=== PATIENT | male | born 1945 | race Caucasian/White ===

== ENCOUNTER 2017-01-12 23:13 | Emergency (ER) | payer MEDICARE, BC ==
[2017-01-13] MEDS ORDERED: Sodium Chloride 0.9% 1,000 ML IV SCH (01:30)
--- NOTE | 2017-01-13 01:34 | EDM.PDOC ---
[id number]: CAN'T BREATHE Time Seen by Provider: 01/12/17 23:30 Source: Reports: Patient, Family History Limitations: Reports: No limitations - History of Present Illness INITIAL COMMENTS - FREE TEXT/NARRATIVE: Pt became very shakey and he was quite sob tonight. He had no chest pain. After arrival here he felt better. He states his urine possibly did look infected earlier in the week. Timing/Duration: Reports: Hour(s):, Getting worse Location, General: Reports: chest Associated Symptoms: Reports: shortness of breath - Related Data Allergies/ADRs: Allergies Allergy/AdvReac Type Severity Reaction Status Date / Time No Known Allergies Allergy Verified 01/12/17 23:51 Home Meds: Home Meds Gabapentin [Neurontin] 600 mg PO BID 05/28/14 [History] Multivitamin with Minerals [Multiple Vitamin] 1 tab PO DAILY 05/28/14 [History] Cholecalciferol (Vitamin D3) [Vitamin D3] 2,000 unit PO BID 07/27/14 [History] Insulin Lispro [Humalog] 12 units SUBCUT TIDMEALS 12/07/15 [History] Omeprazole 20 mg PO DAILY 12/07/15 [History] Sennosides/Docusate Sodium [Senna-S] 17.2 mg PO BID PRN 12/07/15 [History] traZODone 50 mg PO BEDTIME 12/07/15 [History] Aspirin [Ecotrin] 81 mg PO DAILY 08/29/16 [History] Carvedilol [Coreg] 25 mg PO BID 08/29/16 [History] Collagenase [Santyl Oint] 1 applic TP DAILY 08/29/16 [History] Cyclobenzaprine [Flexeril] 5 mg PO TID PRN 08/29/16 [History] Melatonin [Melatin] 3 mg PO BEDTIME PRN 08/29/16 [History] atorvaSTATin [Lipitor] 10 mg PO BEDTIME 08/29/16 [History] Metoprolol Tartrate [Lopressor] 100 mg PO BID 09/17/16 [History] Albuterol [IJD: Albuterol] 2.5 mg NEB Q4H PRN #0 nebule 09/19/16 [Rx] Albuterol/Ipratropium [DuoNeb 3.0-0.5 MG/3 ML] 3 ml NEB QIDRT neb 09/19/16 [Rx] Insulin Glarg,Human.Rec.Analog [Lantus Solostar] 15 units SQ BID 09/24/16 [ History] Doxazosin Mesylate [Cardura] 2 mg PO BEDTIME #0 10/05/16 [Rx] Potassium Chloride [Klor-Con M20] 20 meq PO DAILY tab.er 10/05/16 [Rx] Sildenafil [Revatio] 20 mg PO Q8H tablet 10/05/16 [Rx] Bumetanide [Bumex] 3 mg PO BID 11/29/16 [History] Darbepoetin Diego [Aranesp] 200 mcg SUBCUT Q14D 11/29/16 [History] Insulin Aspart [NovoLOG] 0 unit SUBCUT QIDACANDBED pen 12/02/16 [Rx] Silver Sulfadiazine [Silvadene 1% Cream 50 GM] 0 gm TOP BID PRN #0 tube [Rx] Warfarin [Coumadin] 7.5 - 10 mg PO ASDIRECTED #0 12/02/16 [Rx] Past Medical History HEENT History: Reports: Cataract, Epistaxis Cardiovascular History: Reports: Bypass, CAD, Heart Failure, Heart valve replacement, Hypertension, Pacemaker Other Cardiovascular History: Mechanical aortic valve replacement Respiratory History: Reports: COPD, Pneumonia, recurrent, Other (see below) Other Respiratory History: CO2 retention, wears home O2 Gastrointestinal History: Reports: Chronic constipation Genitourinary History: Reports: Diabetic nephropathy Other Genitourinary History: Chronic kidney disease Musculoskeletal History: Reports: Arthritis Neurological History: Reports: CVA Endocrine/Metabolic History: Reports: Diabetes, type II Hematologic History: Reports: Anemia Oncologic (Cancer) History: Reports: Other (see below) Other Oncologic History: Multiple myeloma - Infectious Disease History Infectious Disease History: Reports: Chicken pox - Past Surgical History Cardiovascular Surgical History: Reports: Cardiac Ablation, Pacer Social & Family History - Family History HEENT: Reports: None Cardiac: Reports: Heart valve replacement Oncologic: Reports: Bone, Colon, Pancreatic, Skin - Tobacco Use Smoking Status *Q: Never Smoker Second Hand Smoke Exposure: No - Caffeine Use Caffeine Use: Reports: Coffee, Soda, Tea Other Caffeine Use: 2-3 cups coffee per day Caffeine Use Comment: 1-2 cups of coffee/day - Alcohol Use Days Per Week of Alcohol Use: 0 Number of Drinks Per Day: 0 Total Drinks Per Week: 0 - Recreational Drug Use Recreational Drug Use: No ED ROS GENERAL - Review of Systems Review Of Systems: See Below Constitutional: Reports: chills HEENT: Reports: No symptoms Respiratory: Reports: Shortness of Breath Cardiovascular: Reports: No symptoms Endocrine: Reports: no symptoms GI/Abdominal: Reports: No symptoms : Reports: no symptoms, other (pt has a burnette cath. ) Musculoskeletal: Reports: no symptoms Skin: Reports: no symptoms Neurological: Reports: No Symptoms ED EXAM, GENERAL - Physical Exam Exam: See Below Free Text/Narrative:: pt is a pale appearing pt who is complaining of being sob. Exam Limited By: No limitations General Appearance: alert, anxious Ears: normal TMs Nose: normal inspection Throat/Mouth: Normal inspection Head: atraumatic Neck: normal inspection Respiratory/Chest: no respiratory distress Cardiovascular: regular rate, rhythm GI/Abdominal: soft, non tender Rectal (Males) Exam: Deferred Back Exam: normal inspection Extremities: other (mild edema. ) Neurological: alert, oriented, normal cognition Psychiatric: depressed mood Course - Vital Signs Last Recorded V/S: Last Vital Signs Temp 36.3 C 01/13/17 03:45 Pulse 75 01/13/17 03:45 Resp 16 01/13/17 03:45 BP 124/68 01/13/17 03:45 Pulse Ox 99 01/13/17 03:45 - Orders/Labs/Meds Labs: Laboratory Tests 01/13/17 01/13/17 01/13/17 Range/Units 00:15 00:15 01:21 WBC 6.4 (4.5-11.0) K/uL RBC 2.63 L (4.30-5.90) M/uL Hgb 7.5 L (12.0-15.0) g/dL Hct 24.6 L (40.0-54.0) % MCV 94 (80-98) fL MCH 29 (27-31) pg MCHC 31 L (32-36) % Plt Count 128 L (150-400) K/uL Neut % (Auto) 81 H (36-66) % Lymph % (Auto) 10 L (24-44) % Victoria % (Auto) 6 (2-6) % Eos % (Auto) 3 (2-4) % Baso % (Auto) 0 (0-1) % Sodium 134 L (140-148) mmol/L Potassium 4.4 (3.6-5.2) mmol/L Chloride 96 L (100-108) mmol/L Carbon Dioxide 35 H (21-32) mmol/L Anion Gap 7.4 (5.0-14.0) mmol/L BUN 64 H (7-18) mg/dL Creatinine 1.5 H (0.8-1.3) mg/dL Est Cr Clr Drug Dosing 46.71 mL/min Estimated GFR (MDRD) 46 L (>60) Glucose 377 H (74-106) mg/dL Calcium 8.5 (8.5-10.1) mg/dL Total Bilirubin 0.8 (0.2-1.0) mg/dL AST 13 L (15-37) U/L ALT 28 (12-78) U/L Alkaline Phosphatase 148 H (46-116) U/L [id number] Pept 9444 H (5-125) pg/mL Total Protein 7.8 (6.4-8.2) g/dL Albumin 2.9 L (3.4-5.0) g/dL Globulin 4.9 H (2.3-3.5) g/dL Albumin/Globulin Ratio 0.6 L (1.2-2.2) Urine Color Yellow Urine Appearance Slightly cloudy Urine pH 5.0 (4.5-8.0) Ur Specific [place] 1.020 (1.008-1.030) Urine Protein Negative (NEGATIVE) mg/dL Urine Glucose (UA) Normal (NEGATIVE) mg/dL Urine Ketones Negative (NEGATIVE) mg/dL Urine Occult Blood Moderate (NEGATIVE) Urine Nitrite Negative (NEGAITVE) Urine Bilirubin Negative (NEGATIVE) Urine Urobilinogen Normal (NORMAL) mg/dL Ur Leukocyte Esterase Large (NEGATIVE) Urine RBC 5-10 H (0-5) Urine WBC 20-30 H (0-5) Ur Epithelial Cells Few Amorphous Sediment Not seen Urine Bacteria Many Urine Mucus Not seen Urine Other Meds: Medications Discontinued Medications Generic Name Dose Route Start Last Admin Trade Name Freq PRN Reason Stop Dose Admin Furosemide 60 mg 01/13/17 01:45 01/13/17 02:12 Lasix IVPUSH 01/13/17 01:46 60 mg ONETIME ONE Administration Sodium Chloride 1,000 mls @ 75 mls/hr 01/13/17 01:30 01/13/17 02:10 Normal Saline IV 75 mls/hr ASDIRECTED EARNEST Administration Levofloxacin/Dextrose 500 mg/ 100 mls @ 100 mls/hr 01/13/17 01:46 01/13/17 02 :29 Premix IV 01/13/17 02:45 100 mls/hr ONETIME ONE Administration Sodium Chloride 10 ml 01/13/17 01:27 01/13/17 02:29 Saline Flush FLUSH 10 ml ASDIRECTED PRN Administration Keep Vein Open - Re-Assessments/Exams Free Text/Narrative Re-Assessment/Exam: 01/13/17 01:51 Pt will be typed and crossed to receive 2 units of packed cells tomorrow once the blood is ready. He was treated as a UTI and given levoquin 500mg iv. He will go home on oral levoquin. Departure - Departure Time of Disposition: 04:10 Disposition: Home, Self-Care 01 Condition: fair Clinical Impression: UTI (urinary tract infection), Anemia, Multiple myeloma Instructions: Anemia, Nonspecific, Urinary Tract Infection, Adult, [id number] Referrals: Leoncio Griffin Sr, MD [Primary Care Provider] - Forms: ED Department Discharge Care Plan Goals: rtc tomorrow to be tranfused with 2 units of packed cells, heparin lock can be left stacy place, levoquin 500mg daily for UTI.
[2017-01-13] MEDS ORDERED: Furosemide 40 MG/4 ML VIAL IVPUSH ONE (01:45)
[2017-01-13] MEDS ORDERED: Levofloxacin/Dextrose 5%-Water 500 MG in Premix Bag 1 BAG IV ONE (01:46)
[2017-01-13 02:15] VITALS: BP 124/68
[2017-01-13] MEDS: Sodium Chloride 0.9% 10 ML Syringe FLUSH PRN ×2 (02:26→02:29)
--- NOTE | 2017-01-14 10:22 | CR ---
Chest 1V Frontal HISTORY: Shortness of breath. COMPARISON: 11/29/2016. FINDINGS: Left-sided pacemaker. Prior median sternotomy. Moderate cardiomegaly. Moderate acute conge stive change. Right-sided effusion extending into the minor fissure. Left-sided effusion also likely obscuring the left hemidiaphragm. Developing basilar infiltrates not excluded however this may repr esent pulmonary edema as well. Impression: Moderate CHF.
== END 2017-01-13 04:09 | disposition home or self-care (01) ==
LOC: JP.ED 23:13
DX: N39.0 Urinary tract infection, site not specified (principal); D64.9 Anemia, unspecified; C90.00 Multiple myeloma not having achieved remission; I25.10 Atherosclerotic heart disease of native coronary artery without angina pectoris; I50.9 Heart failure, unspecified; I10 Essential (primary) hypertension; J44.9 Chronic obstructive pulmonary disease, unspecified; E11.21 Type 2 diabetes mellitus with diabetic nephropathy; Z95.0 Presence of cardiac pacemaker; Z95.2 Presence of prosthetic heart valve; Z79.4 Long term (current) use of insulin; Z79.899 Other long term (current) drug therapy; Z79.82 Long term (current) use of aspirin
CPT/HCPCS: 36415; 36430; 71010; 80053; 81001; 83880; 85025; 86850; 86900; 86901; 86902; 86920; 86922; 87086; 87088; 87186; 96361; 96365; 96375; 99284; 99285; J1940; J1956; J7040; J7050; P9016

== ENCOUNTER 2017-01-23 02:45 | Emergency (ER) | payer MEDICARE, BC ==
--- NOTE | 2017-01-23 03:07 | EDM.PDOC ---
[id number]: [facility] Time Seen by Provider: 01/23/17 03:00 Source: Reports: Patient, EMS, Family (em), RN notes reviewed History Limitations: Reports: Other (vague historian) - History of Present Illness INITIAL COMMENTS - FREE TEXT/NARRATIVE: EMS arrival Received a DuoNeb prior to arrival Chief complaint Short of breath HPI 71-year-old male, lives with his who called EMS tonight History of insulin-controlled diabetes, COPD, coronary artery disease with coronary artery bypass graft in 1999, 5 vessel, multiple myeloma with positive warm antibodies, peripheral neuropathy from diabetes, aortic valve replacement with mechanical valve on chronic anticoagulation, hypertension, hyperlipidemia Wheelchair dependent for your because of severe foot ulcers Recently diagnosed as UTI 1 dose left of Levaquin Short of breath and feeling "out of sorts" tonight No chest pain no fever Improve with DuoNeb her EMS Of saturations despite home oxygen were in the 80s but improved with the nebulizer treatment - Related Data Allergies/ADRs: Allergies Allergy/AdvReac Type Severity Reaction Status Date / Time No Known Allergies Allergy Verified 01/23/17 03:00 Home Meds: Home Meds Gabapentin [Neurontin] 600 mg PO BID 05/28/14 [History] Multivitamin with Minerals [Multiple Vitamin] 1 tab PO DAILY 05/28/14 [History] Cholecalciferol (Vitamin D3) [Vitamin D3] 2,000 unit PO BID 07/27/14 [History] Insulin Lispro [Humalog] 12 units SUBCUT TIDMEALS 12/07/15 [History] Omeprazole 20 mg PO DAILY 12/07/15 [History] Sennosides/Docusate Sodium [Senna-S] 17.2 mg PO BID PRN 12/07/15 [History] traZODone 50 mg PO BEDTIME 12/07/15 [History] Aspirin [Ecotrin] 81 mg PO DAILY 08/29/16 [History] Carvedilol [Coreg] 25 mg PO BID 08/29/16 [History] Collagenase [Santyl Oint] 1 applic TP DAILY 08/29/16 [History] Cyclobenzaprine [Flexeril] 5 mg PO TID PRN 08/29/16 [History] Melatonin [Melatin] 3 mg PO BEDTIME PRN 08/29/16 [History] atorvaSTATin [Lipitor] 10 mg PO BEDTIME 08/29/16 [History] Metoprolol Tartrate [Lopressor] 100 mg PO BID 09/17/16 [History] Albuterol [IJD: Albuterol] 2.5 mg NEB Q4H PRN #0 nebule 09/19/16 [Rx] Albuterol/Ipratropium [DuoNeb 3.0-0.5 MG/3 ML] 3 ml NEB QIDRT neb 09/19/16 [Rx] Insulin Glarg,Human.Rec.Analog [Lantus Solostar] 15 units SQ BID 09/24/16 [ History] Doxazosin Mesylate [Cardura] 2 mg PO BEDTIME #0 10/05/16 [Rx] Potassium Chloride [Klor-Con M20] 20 meq PO DAILY tab.er 10/05/16 [Rx] Sildenafil [Revatio] 20 mg PO Q8H tablet 10/05/16 [Rx] Bumetanide [Bumex] 3 mg PO BID 11/29/16 [History] Darbepoetin Diego [Aranesp] 200 mcg SUBCUT Q14D 11/29/16 [History] Insulin Aspart [NovoLOG] 0 unit SUBCUT QIDACANDBED pen 12/02/16 [Rx] Silver Sulfadiazine [Silvadene 1% Cream 50 GM] 0 gm TOP BID PRN #0 tube [Rx] Warfarin [Coumadin] 7.5 - 10 mg PO ASDIRECTED #0 12/02/16 [Rx] Levofloxacin [Levaquin] 500 mg PO ASDIRECTED 01/23/17 [History] Past Medical History HEENT History: Reports: Cataract, Epistaxis Cardiovascular History: Reports: Bypass, CAD, Heart Failure, Heart valve replacement, Hypertension, Pacemaker Other Cardiovascular History: Mechanical aortic valve replacement Respiratory History: Reports: COPD, Pneumonia, recurrent, Other (see below) Other Respiratory History: CO2 retention, wears home O2 Gastrointestinal History: Reports: Chronic constipation Genitourinary History: Reports: Diabetic nephropathy Other Genitourinary History: Chronic kidney disease Musculoskeletal History: Reports: Arthritis Neurological History: Reports: CVA Endocrine/Metabolic History: Reports: Diabetes, type II Hematologic History: Reports: Anemia Oncologic (Cancer) History: Reports: Other (see below) Other Oncologic History: Multiple myeloma - Infectious Disease History Infectious Disease History: Reports: Chicken pox - Past Surgical History Cardiovascular Surgical History: Reports: Cardiac Ablation, Pacer Social & Family History - Family History HEENT: Reports: None Cardiac: Reports: Heart valve replacement Oncologic: Reports: Bone, Colon, Pancreatic, Skin - Tobacco Use Smoking Status *Q: Never Smoker Second Hand Smoke Exposure: No - Caffeine Use Caffeine Use: Reports: Coffee, Soda, Tea Other Caffeine Use: 2-3 cups coffee per day Caffeine Use Comment: 1-2 cups of coffee/day - Alcohol Use Days Per Week of Alcohol Use: 0 Number of Drinks Per Day: 0 Total Drinks Per Week: 0 - Recreational Drug Use Recreational Drug Use: No ED ROS GENERAL - Review of Systems Review Of Systems: See Below Constitutional: Reports: weakness. Denies: fever, chills, decreased appetite HEENT: Denies: Eye discharge, Rhinitis, Throat pain Respiratory: Reports: Shortness of Breath, Cough. Denies: Pleuritic Chest Pain Cardiovascular: Reports: Dyspnea on exertion. Denies: Chest pain, Lightheadedness, Syncope Endocrine: Reports: high glucose GI/Abdominal: Denies: Abdominal pain, Decreased appetite, Nausea, Vomiting : Reports: no symptoms Musculoskeletal: Reports: other (Catheter times one month) Skin: Reports: no symptoms Neurological: Reports: No Symptoms Hematologic/Lymphatic: Reports: no symptoms Immunologic: Reports: no symptoms ED EXAM, GENERAL - Physical Exam Exam: See Below Exam Limited By: Other (Vague historian) General Appearance: alert, mild distress, other (Appears quite tiredVital signs are normal apart from saturation which is high 80s to low 90s on 2 L per minute of oxygen) Eye Exam: bilateral eye: normal inspection Ears: normal external exam, normal canal, hearing grossly normal Nose: normal inspection, normal mucosa Throat/Mouth: Normal inspection, Normal lips, Normal oropharynx, Normal voice Head: atraumatic, normocephalic Neck: normal inspection, other (Mild elevation jugular vein). No: lymphadenopathy (R), lymphadenopathy (L) Respiratory/Chest: decreased breath sounds, rales, accessory muscle use, prolonged expiration Cardiovascular: normal peripheral pulses, irregularly irregular GI/Abdominal: normal bowel sounds, soft, non tender, no distention (Male) Exam: Other (Verma catheter) Back Exam: normal inspection Extremities: non-tender, no pedal edema Neurological: alert, no motor/sensory deficits, inattentive Psychiatric: normal affect, normal mood Skin Exam: Warm, Dry, Intact, Normal color, No rash Lymphatic: no adenopathy Course - Vital Signs Last Recorded V/S: Last Vital Signs Temp 37.1 C 01/23/17 02:53 Pulse 75 01/23/17 06:30 Resp 19 01/23/17 06:30 BP 115/63 01/23/17 06:30 Pulse Ox 95 01/23/17 06:30 - Orders/Labs/Meds Orders: Active Orders 24 hr Category Date Time Status EKG Documentation Completion [RC] ASDIRECTED Care 01/23/17 03:16 Active Chest 1V Frontal [CR] Stat Exams 01/23/17 03:15 Taken Sodium Chloride 0.9% [Saline Flush] Med 01/23/17 03:17 Active 10 ml FLUSH ASDIRECTED PRN Saline Lock Insert [OM.PC] Stat Oth 01/23/17 03:17 Ordered EKG 12 Lead [EK] Routine Ther 01/23/17 03:14 Ordered Medication Orders Sodium Chloride (Saline Flush) 10 ml FLUSH ASDIRECTED PRN PRN Reason: Keep Vein Open Labs: Laboratory Tests 01/23/17 01/23/17 01/23/17 Range/Units 03:13 03:28 03:28 WBC 7.1 (4.5-11.0) K/uL RBC 2.84 L (4.30-5.90) M/uL Hgb 8.0 L (12.0-15.0) g/dL Hct 26.9 L (40.0-54.0) % MCV 95 (80-98) fL MCH 28 (27-31) pg MCHC 30 L (32-36) % Plt Count 116 L (150-400) K/uL Sodium 137 L (140-148) mmol/L Potassium 4.1 (3.6-5.2) mmol/L Chloride 97 L (100-108) mmol/L Carbon Dioxide 40 H (21-32) mmol/L Anion Gap 4.1 L (5.0-14.0) mmol/L BUN 48 H (7-18) mg/dL Creatinine 1.4 H (0.8-1.3) mg/dL Est Cr Clr Drug Dosing 49.85 mL/min Estimated GFR (MDRD) 50 L (>60) Glucose 136 H (74-106) mg/dL Lactic Acid 1.2 (0.4-2.0) mmol/L Calcium 8.3 L (8.5-10.1) mg/dL Total Bilirubin 0.8 (0.2-1.0) mg/dL AST 12 L (15-37) U/L ALT 18 (12-78) U/L Alkaline Phosphatase 121 H (46-116) U/L Troponin I 0.031 (0.000-0.056) ng/mL [id number] Pept (5-125) pg/mL Total Protein 7.6 (6.4-8.2) g/dL Albumin 2.8 L (3.4-5.0) g/dL Globulin 4.8 H (2.3-3.5) g/dL Albumin/Globulin Ratio 0.6 L (1.2-2.2) /03/06 Range/Units 03:28 WBC (4.5-11.0) K/uL RBC (4.30-5.90) M/uL Hgb (12.0-15.0) g/dL Hct (40.0-54.0) % MCV (80-98) fL MCH (27-31) pg MCHC (32-36) % Plt Count (150-400) K/uL Sodium (140-148) mmol/L Potassium (3.6-5.2) mmol/L Chloride (100-108) mmol/L Carbon Dioxide (21-32) mmol/L Anion Gap (5.0-14.0) mmol/L BUN (7-18) mg/dL Creatinine (0.8-1.3) mg/dL Est Cr Clr Drug Dosing mL/min Estimated GFR (MDRD) (>60) Glucose (74-106) mg/dL Lactic Acid (0.4-2.0) mmol/L Calcium (8.5-10.1) mg/dL Total Bilirubin (0.2-1.0) mg/dL AST (15-37) U/L ALT (12-78) U/L Alkaline Phosphatase (46-116) U/L Troponin I (0.000-0.056) ng/mL [id number] Pept 29959 H (5-125) pg/mL Total Protein (6.4-8.2) g/dL Albumin (3.4-5.0) g/dL Globulin (2.3-3.5) g/dL Albumin/Globulin Ratio (1.2-2.2) Meds: Medications Generic Name Dose Route Start Last Admin Trade Name Freq PRN Reason Stop Dose Admin Sodium Chloride 10 ml 01/23/17 03:17 Saline Flush FLUSH ASDIRECTED PRN Keep Vein Open - Re-Assessments/Exams Free Text/Narrative Re-Assessment/Exam: 01/23/17 03:58 71-year-old male with history of COPD presenting with some shortness of breath tonight, also history coronary artery disease Improved with DuoNeb EKG shows atrial fibrillation with ventricular paced rhythm, no acute ischemic changes Chest x-ray negative for pneumonia or effusion, mild chronic CHF Lab tests do not show any significant abnormality apart from his hemoglobin which is 8.0 and creatinine 1.4 consistent with previous White count is normal Patient slept in emergency overnight, he seemed to improve significantly from a nebulizer and the noted he was better than he was when he he was at home. 01/23/17 06:49 Departure - Departure Time of Disposition: 06:41 Disposition: Admitted As Inpatient 64 Condition: fair Clinical Impression: Chronic anemia, Hypoxia COPD (chronic obstructive pulmonary disease) Qualifiers: COPD type: unspecified COPD Qualified Code(s): J44.9 - Chronic obstructive pulmonary disease, unspecified Chronic CHF (congestive heart failure) Qualifiers: Congestive heart failure type: unspecified congestive heart failure type Qualified Code(s): I50.9 - Heart failure, unspecified Instructions: Chronic Obstructive Pulmonary Disease Exacerbation, [id number] , Heart Failure Referrals: Leoncio Griffin Sr, MD [Primary Care Provider] - Forms: ED Department Discharge Additional Instructions: Keep taking your water pills/diuretic Start using her nebulizer twice daily See your Dr. or return to emergency if your symptoms worsen - My Orders Last 24 Hours: My Active Orders 01/23/17 03:14 EKG 12 Lead [EK] Routine 01/23/17 03:15 Chest 1V Frontal [CR] Stat 01/23/17 03:16 EKG Documentation Completion [RC] ASDIRECTED 01/23/17 03:17 Sodium Chloride 0.9% [Saline Flush] 10 ml FLUSH ASDIRECTED PRN Saline Lock Insert [OM.PC] Stat - Assessment/Plan Last 24 Hours: My Active Orders 01/23/17 03:14 EKG 12 Lead [EK] Routine 01/23/17 03:15 Chest 1V Frontal [CR] Stat 01/23/17 03:16 EKG Documentation Completion [RC] ASDIRECTED 01/23/17 03:17 Sodium Chloride 0.9% [Saline Flush] 10 ml FLUSH ASDIRECTED PRN Saline Lock Insert [OM.PC] Stat
[2017-01-23] MEDS ORDERED: Sodium Chloride 0.9% 10 ML Syringe FLUSH PRN (03:17)
[2017-01-23 06:42] VITALS: BP 115/63
--- NOTE | 2017-01-23 08:44 | CR ---
Chest 1V Frontal HISTORY: dyspnea FINDINGS: Portable chest, 0326 hours. Generalized cardiomegaly is stable. Old median sternotomy changes and prosthetic heart valve are not ed. Mild diffuse interstitial prominence is similar to the prior exam. Bilateral pleural effusions d o not appear significantly changed. A second pacemaker lead wires are stable. No new infiltrate is i dentified. Prominent degenerative changes can be seen at the glenohumeral joint bilaterally. IMPRESSION: Acute CHF similar to exam of 01/13/2017.
== END 2017-01-23 08:20 | disposition critical access hospital (66) ==
LOC: JP.ED 02:45
DX: D64.9 Anemia, unspecified (principal); R09.02 Hypoxemia; J44.9 Chronic obstructive pulmonary disease, unspecified; I50.9 Heart failure, unspecified; E78.00 Pure hypercholesterolemia, unspecified; I25.10 Atherosclerotic heart disease of native coronary artery without angina pectoris; N18.9 Chronic kidney disease, unspecified; E11.9 Type 2 diabetes mellitus without complications; Z95.1 Presence of aortocoronary bypass graft; Z95.2 Presence of prosthetic heart valve; Z79.82 Long term (current) use of aspirin; Z79.4 Long term (current) use of insulin; Z79.01 Long term (current) use of anticoagulants; Z79.899 Other long term (current) drug therapy; Z99.3 Dependence on wheelchair
CPT/HCPCS: 36415; 71010; 71010-26; 80053; 82962; 83605; 83880; 84484; 85027; 93005; 93010; 99285; 99285-25

== ENCOUNTER 2017-01-27 12:17 | Emergency (ER) | payer MEDICARE, BC ==
[2017-01-27 12:50] VITALS: BP 114/58
[2017-01-27] MEDS ORDERED: cefTRIAXone 1 GM, Lidocaine 1% 2.1 ML IM ONE ×2 (14:46)
--- NOTE | 2017-01-27 14:51 | EDM.PDOC ---
[id number] 4d UTI??? Time Seen by Provider: 01/27/17 12:50 Source: Reports: Patient, Family History Limitations: Reports: No limitations - History of Present Illness INITIAL COMMENTS - FREE TEXT/NARRATIVE: pt arrived feeling weaker and he thinks he has a UTI again. He finished a course of levoquin about 1 week ago, He has been having alot of nose bleeds/ Timing/Duration: Reports: Day(s):, Getting worse Location: Reports: other (pt has a burnette cath. ) Associated Symptoms: Reports: other (Pt has a burnette and he feels like he is infcted. ) - Related Data Allergies/ADRs: Allergies Allergy/AdvReac Type Severity Reaction Status Date / Time No Known Allergies Allergy Verified 01/27/17 12:58 Home Meds: Home Meds Gabapentin [Neurontin] 600 mg PO BID 05/28/14 [History] Multivitamin with Minerals [Multiple Vitamin] 1 tab PO DAILY 05/28/14 [History] Cholecalciferol (Vitamin D3) [Vitamin D3] 2,000 unit PO BID 07/27/14 [History] Insulin Lispro [Humalog] 12 units SUBCUT TIDMEALS 12/07/15 [History] Omeprazole 20 mg PO DAILY 12/07/15 [History] Sennosides/Docusate Sodium [Senna-S] 17.2 mg PO BID PRN 12/07/15 [History] traZODone 50 mg PO BEDTIME 12/07/15 [History] Aspirin [Ecotrin] 81 mg PO DAILY 08/29/16 [History] Carvedilol [Coreg] 25 mg PO BID 08/29/16 [History] Collagenase [Santyl Oint] 1 applic TP DAILY 08/29/16 [History] Cyclobenzaprine [Flexeril] 5 mg PO TID PRN 08/29/16 [History] Melatonin [Melatin] 3 mg PO BEDTIME PRN 08/29/16 [History] atorvaSTATin [Lipitor] 10 mg PO BEDTIME 08/29/16 [History] Metoprolol Tartrate [Lopressor] 100 mg PO BID 09/17/16 [History] Albuterol [IJD: Albuterol] 2.5 mg NEB Q4H PRN #0 nebule 09/19/16 [Rx] Albuterol/Ipratropium [DuoNeb 3.0-0.5 MG/3 ML] 3 ml NEB QIDRT neb 09/19/16 [Rx] Insulin Glarg,Human.Rec.Analog [Lantus Solostar] 15 units SQ BID 09/24/16 [ History] Doxazosin Mesylate [Cardura] 2 mg PO BEDTIME #0 10/05/16 [Rx] Potassium Chloride [Klor-Con M20] 20 meq PO DAILY tab.er 10/05/16 [Rx] Sildenafil [Revatio] 20 mg PO Q8H tablet 10/05/16 [Rx] Bumetanide [Bumex] 3 mg PO BID 11/29/16 [History] Darbepoetin Diego [Aranesp] 200 mcg SUBCUT Q14D 11/29/16 [History] Silver Sulfadiazine [Silvadene 1% Cream 50 GM] 0 gm TOP BID PRN #0 tube [Rx] Warfarin [Coumadin] 7.5 - 10 mg PO ASDIRECTED #0 12/02/16 [Rx] Past Medical History HEENT History: Reports: Cataract, Epistaxis Cardiovascular History: Reports: Bypass, CAD, Heart Failure, Heart valve replacement, Hypertension, Pacemaker Other Cardiovascular History: Mechanical aortic valve replacement Respiratory History: Reports: COPD, Pneumonia, recurrent, Other (see below) Other Respiratory History: CO2 retention, wears home O2 Gastrointestinal History: Reports: Chronic constipation Genitourinary History: Reports: Diabetic nephropathy Other Genitourinary History: Chronic kidney disease Musculoskeletal History: Reports: Arthritis Neurological History: Reports: CVA Endocrine/Metabolic History: Reports: Diabetes, type II Other Endocrine/Metabolic History: Insulin dependent Hematologic History: Reports: Anemia Oncologic (Cancer) History: Reports: Other (see below) Other Oncologic History: Multiple myeloma - Infectious Disease History Infectious Disease History: Reports: Chicken pox - Past Surgical History Cardiovascular Surgical History: Reports: Cardiac Ablation, Pacer Social & Family History - Family History HEENT: Reports: None Cardiac: Reports: Heart valve replacement Oncologic: Reports: Bone, Colon, Pancreatic, Skin - Tobacco Use Smoking Status *Q: Never Smoker Second Hand Smoke Exposure: No - Caffeine Use Caffeine Use: Reports: Coffee, Soda, Tea Other Caffeine Use: 2-3 cups coffee per day Caffeine Use Comment: 1-2 cups of coffee/day - Alcohol Use Days Per Week of Alcohol Use: 0 Number of Drinks Per Day: 0 Total Drinks Per Week: 0 - Recreational Drug Use Recreational Drug Use: No ED ROS GENERAL - Review of Systems Review Of Systems: See Below Constitutional: Reports: malaise, weakness, other (pt is having mnore difficulty transfering. ) HEENT: Reports: No symptoms Respiratory: Reports: No Symptoms Cardiovascular: Reports: No symptoms Endocrine: Reports: no symptoms GI/Abdominal: Reports: No symptoms : Reports: other ( burnette in place) ED EXAM, RENAL/ - Physical Exam Exam: See Below Text/Narrative:: Pt is more weak today and is having trouble transfering Exam Limited By: No limitations General Appearance: alert, no apparent distress Ears: normal TMs Nose: normal inspection Throat/Mouth: Normal inspection Head: atraumatic Neck: normal inspection Respiratory/Chest: no respiratory distress Cardiovascular: regular rate, rhythm GI/Abdominal: soft, non tender (Male) Exam: Deferred Rectal (Males) Exam: Deferred Back Exam: normal inspection Extremities: normal inspection Neurological: alert, oriented, normal cognition Course - Vital Signs Last Recorded V/S: Last Vital Signs Temp 37.0 C 01/27/17 12:55 Pulse 82 01/27/17 12:55 Resp 20 01/27/17 12:55 BP 114/58 L 01/27/17 12:55 Pulse Ox 93 L 01/27/17 12:55 - Orders/Labs/Meds Labs: Laboratory Tests 01/27/17 01/27/17 01/27/17 Range/Units 13:20 13:20 13:55 WBC 6.4 (4.5-11.0) K/uL RBC 2.87 L (4.30-5.90) M/uL Hgb 8.1 L (12.0-15.0) g/dL Hct 27.3 L (40.0-54.0) % MCV 95 (80-98) fL MCH 28 (27-31) pg MCHC 30 L (32-36) % Plt Count 123 L (150-400) K/uL Neut % (Auto) 81 H (36-66) % Lymph % (Auto) 9 L (24-44) % [place] % (Auto) 8 H (2-6) % Eos % (Auto) 1 L (2-4) % Baso % (Auto) 0 (0-1) % PT (9.5-12.0) sec INR (0.80-1.20) Sodium 132 L (140-148) mmol/L Potassium 4.4 (3.6-5.2) mmol/L Chloride 92 L (100-108) mmol/L Carbon Dioxide 42 H (21-32) mmol/L Anion Gap 2.4 L (5.0-14.0) mmol/L BUN 50 H (7-18) mg/dL Creatinine 1.4 H (0.8-1.3) mg/dL Est Cr Clr Drug Dosing 50.05 mL/min Estimated GFR (MDRD) 50 L (>60) Glucose 261 H (74-106) mg/dL Calcium 8.1 L (8.5-10.1) mg/dL Total Bilirubin 0.9 (0.2-1.0) mg/dL AST 16 (15-37) U/L ALT 25 (12-78) U/L Alkaline Phosphatase 130 H (46-116) U/L Total Protein 7.8 (6.4-8.2) g/dL Albumin 2.8 L (3.4-5.0) g/dL Globulin 5.0 H (2.3-3.5) g/dL Albumin/Globulin Ratio 0.6 L (1.2-2.2) Urine Color Yellow Urine Appearance Cloudy Urine pH 5.0 (4.5-8.0) Ur Specific Mears 1.015 (1.008-1.030) Urine Protein Negative (NEGATIVE) mg/dL Urine Glucose (UA) Normal (NEGATIVE) mg/dL Urine Ketones Negative (NEGATIVE) mg/dL Urine Occult Blood Large (NEGATIVE) Urine Nitrite Negative (NEGAITVE) Urine Bilirubin Negative (NEGATIVE) Urine Urobilinogen Normal (NORMAL) mg/dL Ur Leukocyte Esterase Large (NEGATIVE) Urine RBC 5-10 H (0-5) Urine WBC Packed H (0-5) Ur Epithelial Cells Few Amorphous Sediment Few Urine Bacteria Few Urine Mucus Few Urine Other See note 01/27/17 Range/Units 14:24 WBC (4.5-11.0) K/uL RBC (4.30-5.90) M/uL Hgb (12.0-15.0) g/dL Hct (40.0-54.0) % MCV (80-98) fL MCH (27-31) pg MCHC (32-36) % Plt Count (150-400) K/uL Neut % (Auto) (36-66) % Lymph % (Auto) (24-44) % [place] % (Auto) (2-6) % Eos % (Auto) (2-4) % Baso % (Auto) (0-1) % PT 43.5 H (9.5-12.0) sec INR 3.93 H (0.80-1.20) Sodium (140-148) mmol/L Potassium (3.6-5.2) mmol/L Chloride (100-108) mmol/L Carbon Dioxide (21-32) mmol/L Anion Gap (5.0-14.0) mmol/L BUN (7-18) mg/dL Creatinine (0.8-1.3) mg/dL Est Cr Clr Drug Dosing mL/min Estimated GFR (MDRD) (>60) Glucose (74-106) mg/dL Calcium (8.5-10.1) mg/dL Total Bilirubin (0.2-1.0) mg/dL AST (15-37) U/L ALT (12-78) U/L Alkaline Phosphatase (46-116) U/L Total Protein (6.4-8.2) g/dL Albumin (3.4-5.0) g/dL Globulin (2.3-3.5) g/dL Albumin/Globulin Ratio (1.2-2.2) Urine Color Urine Appearance Urine pH (4.5-8.0) Ur Specific Mears (1.008-1.030) Urine Protein (NEGATIVE) mg/dL Urine Glucose (UA) (NEGATIVE) mg/dL Urine Ketones (NEGATIVE) mg/dL Urine Occult Blood (NEGATIVE) Urine Nitrite (NEGAITVE) Urine Bilirubin (NEGATIVE) Urine Urobilinogen (NORMAL) mg/dL Ur Leukocyte Esterase (NEGATIVE) Urine RBC (0-5) Urine WBC (0-5) Ur Epithelial Cells Amorphous Sediment Urine Bacteria Urine Mucus Urine Other Meds: Medications Discontinued Medications Generic Name Dose Route Start Last Admin Trade Name Freq PRN Reason Stop Dose Admin Ceftriaxone Sodium 1 gm/ 0 gm 01/27/17 14:46 01/27/17 15:11 Lidocaine HCl 2.1 ml IM 01/27/17 14:47 1 inj ONETIME ONE Administration - Re-Assessments/Exams Free Text/Narrative Re-Assessment/Exam: 01/27/17 14:51 hg is 8.1, his urine is packed with rbcs nd wbcs. He will be cultured but will be treated. His Inr is high at 3.93. he is having nose bleeds. Will hold any tranfusions at this point. Departure - Departure Time of Disposition: 14:53 Disposition: Home, Self-Care 01 Condition: fair Clinical Impression: UTI (urinary tract infection), Burnette catheter in place, Anemia, Elevated INR Instructions: Burnette Catheter Care, Adult, Anemia, Nonspecific, Urinary Tract Infection, Adult Referrals: Leoncio Griffin Sr, MD [Primary Care Provider] - Forms: ED Department Discharge Care Plan Goals: push fluids, cipro 500mg bid, -- 18 days, hold coumadin today and tomorrow. See Dr Griffin saturday for INR
== END 2017-01-27 15:47 | disposition home or self-care (01) ==
LOC: JP.ED 12:17
DX: N39.0 Urinary tract infection, site not specified (principal); I50.9 Heart failure, unspecified; I25.10 Atherosclerotic heart disease of native coronary artery without angina pectoris; J44.9 Chronic obstructive pulmonary disease, unspecified; E11.40 Type 2 diabetes mellitus with diabetic neuropathy, unspecified; N18.9 Chronic kidney disease, unspecified; I12.9 Hypertensive chronic kidney disease with stage 1 through stage 4 chronic kidney disease, or unspecified chronic kidney disease; Z79.82 Long term (current) use of aspirin; Z79.4 Long term (current) use of insulin; Z95.2 Presence of prosthetic heart valve; Z95.0 Presence of cardiac pacemaker; Z95.1 Presence of aortocoronary bypass graft; Z79.01 Long term (current) use of anticoagulants; Z79.899 Other long term (current) drug therapy
CPT/HCPCS: 36415; 80053; 81001; 85025; 85610; 87086; 96372; 99284; J0696; 87088; 87186; 99283

== ENCOUNTER 2017-02-03 20:49 | Inpatient (IN) | payer MEDICARE, BC ==
--- NOTE | 2017-02-03 22:08 | EDM.PDOC ---
[id number] 4d MEDICAL Time Seen by Provider: 02/03/17 21:50 Source of Information: Reports: Patient, Family History Limitations: Reports: No limitations - History of Present Illness INITIAL COMMENTS - FREE TEXT/NARRATIVE: 71-year-old male who was in for outpatient IV antibiotics for a urinary tract infection was asked to be seen by his family because of increasing shortness of breath, weakness, lethargy and failure to thrive. The patient himself says he just "feels awful". He is unable to ambulate effectively or get out of a chair it is starting to develop some pressure sores on his buttocks. His family does not feel they can care for him at home and the patient does not want to return home. Onset: unknown/unsure Severity: moderate Associated Symptoms: Reports: cough, malaise, shortness of breath, weakness. Denies: chest pain, fever/chills, nausea/vomiting - Related Data Allergies Allergy/AdvReac Type Severity Reaction Status Date / Time No Known Allergies Allergy Verified 02/03/17 21:03 Home Meds: Home Meds Gabapentin [Neurontin] 600 mg PO BID 05/28/14 [History] Multivitamin with Minerals [Multiple Vitamin] 1 tab PO DAILY 05/28/14 [History] Cholecalciferol (Vitamin D3) [Vitamin D3] 2,000 unit PO BID 07/27/14 [History] Insulin Lispro [Humalog] 12 units SUBCUT TIDMEALS 12/07/15 [History] Omeprazole 20 mg PO DAILY 12/07/15 [History] Sennosides/Docusate Sodium [Senna-S] 17.2 mg PO BID PRN 12/07/15 [History] traZODone 50 mg PO BEDTIME 12/07/15 [History] Aspirin [Ecotrin] 81 mg PO DAILY 08/29/16 [History] Carvedilol [Coreg] 25 mg PO BID 08/29/16 [History] Melatonin [Melatin] 3 mg PO BEDTIME PRN 08/29/16 [History] atorvaSTATin [Lipitor] 10 mg PO BEDTIME 08/29/16 [History] Albuterol [IJD: Albuterol] 2.5 mg NEB Q4H PRN #0 nebule 09/19/16 [Rx] Albuterol/Ipratropium [DuoNeb 3.0-0.5 MG/3 ML] 3 ml NEB QIDRT neb 09/19/16 [Rx] Insulin Glarg,Human.Rec.Analog [Lantus Solostar] 15 units SQ BID 09/24/16 [ History] Doxazosin Mesylate [Cardura] 2 mg PO BEDTIME #0 10/05/16 [Rx] Potassium Chloride [Klor-Con M20] 20 meq PO DAILY tab.er 10/05/16 [Rx] Sildenafil [Revatio] 20 mg PO Q8H tablet 10/05/16 [Rx] Bumetanide [Bumex] 3 mg PO BID 11/29/16 [History] Darbepoetin Diego [Aranesp] 200 mcg SUBCUT Q14D 11/29/16 [History] Silver Sulfadiazine [Silvadene 1% Cream 50 GM] 0 gm TOP BID PRN #0 tube [Rx] Warfarin [Coumadin] 7.5 - 10 mg PO ASDIRECTED #0 12/02/16 [Rx] Gentamicin [Gentamicin] 150 ml IV DAILY 02/03/17 [History] Past Medical History HEENT History: Reports: Cataract, Epistaxis Cardiovascular History: Reports: Bypass, CAD, Heart Failure, Heart valve replacement, Hypertension, Pacemaker Other Cardiovascular History: Mechanical aortic valve replacement Respiratory History: Reports: COPD, Pneumonia, recurrent, Other (see below) Other Respiratory History: CO2 retention, wears home O2 Gastrointestinal History: Reports: Chronic constipation Genitourinary History: Reports: Diabetic nephropathy Other Genitourinary History: Chronic kidney disease Musculoskeletal History: Reports: Arthritis Neurological History: Reports: CVA Endocrine/Metabolic History: Reports: Diabetes, type II Other Endocrine/Metabolic History: Insulin dependent Hematologic History: Reports: Anemia Oncologic (Cancer) History: Reports: Other (see below) Other Oncologic History: Multiple myeloma - Infectious Disease History Infectious Disease History: Reports: Chicken pox - Past Surgical History Cardiovascular Surgical History: Reports: Cardiac Ablation, Pacer Social & Family History - Family History HEENT: Reports: None Cardiac: Reports: Heart valve replacement Oncologic: Reports: Bone, Colon, Pancreatic, Skin - Tobacco Use Smoking Status *Q: Current Every Day Smoker Years of Tobacco use: 50 Packs/Tins Daily: 1 Second Hand Smoke Exposure: No - Caffeine Use Caffeine Use: Reports: Coffee, Soda, Tea Other Caffeine Use: 2-3 cups coffee per day Caffeine Use Comment: 1-2 cups of coffee/day - Alcohol Use Days Per Week of Alcohol Use: 0 Number of Drinks Per Day: 0 Total Drinks Per Week: 0 - Recreational Drug Use Recreational Drug Use: No ED ROS GENERAL - Review of Systems Review Of Systems: See Below Constitutional: Reports: malaise, weakness, night sweats. Denies: fever, chills Respiratory: Reports: Shortness of Breath, Cough Cardiovascular: Denies: Chest pain Endocrine: Reports: fatigue GI/Abdominal: Denies: Nausea, Vomiting : Reports: other (Currently being treated for a UTI, has an indwelling catheter) Musculoskeletal: Reports: other (Bilateral Cam Walker's) Skin: Reports: other (Developing some and breakdown of his sacrum and buttock area) Neurological: Reports: Difficulty Walking, Weakness Psychiatric: Reports: Depression ED EXAM, GENERAL - Physical Exam Exam: See Below Exam Limited By: No limitations General Appearance: alert, no apparent distress (Patient is not distressed but looks very tired, O2 saturation is only 84% initially on 2 L of oxygen) Eye Exam: bilateral eye: EOMI Respiratory/Chest: no respiratory distress, other (Diffuse decreased breath sounds, scattered expiratory wheezes.) Cardiovascular: regular rate, rhythm GI/Abdominal: non tender Extremities: other (Patient has Cam Walker's on both feet, they were not removed ) Neurological: alert, other (Diffuse weakness, no asymmetry) Course - Vital Signs Last Recorded V/S: Last Vital Signs Temp 97.3 F 02/04/17 00:35 Pulse 77 02/04/17 00:35 Resp 18 02/04/17 00:35 BP 118/68 02/04/17 00:35 Pulse Ox 97 02/04/17 00:35 - Orders/Labs/Meds Orders: Active Orders 24 hr Category Date Time Status Patient Status [ADT] Routine ADT 02/03/17 22:58 Active Height and Weight [RC] DAILY Care 02/03/17 22:47 Active Intake and Output [RC] QSHIFT Care 02/03/17 22:59 Active May Shower [RC] ASDIRECTED Care 02/03/17 22:47 Active Oxygen Therapy [RC] PRN Care 02/03/17 22:58 Active Up With Assistance [RC] ASDIRECTED Care 02/03/17 22:47 Active Up ad Anai [RC] ASDIRECTED Care 02/03/17 22:47 Active Up to Chair [RC] QID Care 02/03/17 22:47 Active VTE/DVT Education [RC] Per Unit Routine Care 02/03/17 22:58 Active Vital Signs [RC] Q4H Care 02/03/17 22:58 Active Consistent Carbohydrate Diet [DIET] Diet 02/04/17 Breakfast Active Chest 1V Frontal [CR] Stat Exams 02/03/17 21:18 Taken Resuscitation Status Routine Resus Stat 02/03/17 22:47 Ordered Medication Orders Albuterol (Proventil Neb Soln) 2.5 mg NEB Q4H PRN PRN Reason: Dyspnea Albuterol/Ipratropium (Duoneb 3.0-0.5 Mg/3 Ml) 3 ml NEB QIDRT [facility] Aspirin (Halfprin) 81 mg PO DAILY [facility] Atorvastatin Calcium (Lipitor) 10 mg PO BEDTIME [facility] Bumetanide (Bumex) 3 mg PO BID [facility] Carvedilol (Coreg) 25 mg PO BID [facility] Insulin Human Lispro (Humalog) 12 unit SUBCUT TIDMEALS [facility] Melatonin (Melatonin) 3 mg PO BEDTIME PRN PRN Reason: Insomnia Non-Formulary Medication (Cholecalciferol (Vitamin D3) [Vitamin D3]) 2,000 unit PO BID [facility] Non-Formulary Medication (Darbepoetin Diego [Aranesp]) 200 mcg SUBCUT Q14D [facility] Non-Formulary Medication (Doxazosin Mesylate [Cardura]) 2 mg PO BEDTIME [facility] Non-Formulary Medication (Gabapentin [Neurontin]) 600 mg PO BID [facility] Non-Formulary Medication (Insulin Glarg,Human.Rec.Analog [Lantus Solostar]) 15 units SQ BID [facility] Non-Formulary Medication (Multivitamin With Minerals [Multiple Vitamin]) 1 tab PO DAILY [facility] Non-Formulary Medication (Omeprazole [Omeprazole]) 20 mg PO DAILY [facility] Potassium Chloride (Klor-Con M20) 20 meq PO DAILY [facility] Senna/Docusate Sodium (Senna Plus) tab PO BID PRN PRN Reason: Constipation Sildenafil Citrate (Revatio) 20 mg PO Q8H [facility] Silver Sulfadiazine (Silvadene 1% Cream 50 Gm) 1 gm TOP BID PRN PRN Reason: Wound Care Warfarin Sodium (Coumadin) 7.5 - 10 mg PO ASDIRECTED [facility] Labs: Laboratory Tests 02/03/17 02/03/17 02/03/17 Range/Units 20:15 20:15 21:18 WBC 6.5 (4.5-11.0) K/uL RBC 2.86 L (4.30-5.90) M/uL Hgb 8.2 L (12.0-15.0) g/dL Hct 27.0 L (40.0-54.0) % MCV 94 (80-98) fL MCH 29 (27-31) pg MCHC 30 L (32-36) % Plt Count 131 L (150-400) K/uL Neut % (Auto) 80 H (36-66) % Lymph % (Auto) 11 L (24-44) % [place] % (Auto) 8 H (2-6) % Eos % (Auto) 1 L (2-4) % Baso % (Auto) 0 (0-1) % Puncture Site Lt.brachial ABG pH 7.434 (7.350-7.450) ABG pCO2 56.8 H (35.0-42.0) mmHg ABG pO2 76.8 (75.0-100.0) mmHg ABG HCO3 37.4 H (22.0-26.0) mmol/L ABG Total CO2 35.5 H (23.0-27.0) mmol/L ABG O2 Saturation 95.4 (95.0-98.0) % ABG O2 Content 10.4 L (15.0-23.0) %vol ABG Base Excess 12.0 mm/L ABG Hemoglobin 7.8 L (13.5-18.0) g/dL ABG Oxyhemoglobin 93.1 % ABG Carboxyhemoglobin 2.0 H (0.0-1.6) % ABG Methemoglobin 0.4 % Ky Test TNP O2 Delivery Device Nasal cannula Oxygen Flow Rate 2 L Sodium 130 L (140-148) mmol/L Potassium 5.0 (3.6-5.2) mmol/L Chloride 89 L (100-108) mmol/L Carbon Dioxide 38 H (21-32) mmol/L Anion Gap 8.0 (5.0-14.0) mmol/L BUN 63 H (7-18) mg/dL Creatinine 1.7 H (0.8-1.3) mg/dL Est Cr Clr Drug Dosing 41.05 mL/min Estimated GFR (MDRD) 40 L (>60) Glucose 191 H (74-106) mg/dL Calcium 8.4 L (8.5-10.1) mg/dL Total Bilirubin 1.0 (0.2-1.0) mg/dL AST 16 (15-37) U/L ALT 20 (12-78) U/L Alkaline Phosphatase 116 (46-116) U/L Total Protein 7.9 (6.4-8.2) g/dL Albumin 2.8 L (3.4-5.0) g/dL Globulin 5.1 H (2.3-3.5) g/dL Albumin/Globulin Ratio 0.6 L (1.2-2.2) Meds: Medications Generic Name Dose Route Start Last Admin Trade Name Freq PRN Reason Stop Dose Admin Albuterol 2.5 mg 02/03/17 23:02 Proventil Neb Soln NEB Q4H PRN Dyspnea Albuterol/Ipratropium 3 ml 02/04/17 07:00 Duoneb 3.0-0.5 Mg/3 Ml NEB QIDRT [facility] Aspirin 81 mg 02/04/17 09:00 Halfprin PO DAILY [facility] Atorvastatin Calcium 10 mg 02/04/17 21:00 Lipitor PO BEDTIME [facility] Bumetanide 3 mg 02/04/17 09:00 Bumex PO BID [facility] Carvedilol 25 mg 02/04/17 09:00 Coreg PO BID [facility] Insulin Human Lispro 12 unit 02/04/17 08:00 Humalog SUBCUT TIDMEALS [facility] Melatonin 3 mg 02/03/17 23:02 Melatonin PO BEDTIME PRN Insomnia Non-Formulary Medication 2,000 unit 02/04/17 09:00 Cholecalciferol (Vitamin D3) [Vitamin D3] PO BID [facility] Non-Formulary Medication 200 mcg 02/03/17 23:15 Darbepoetin Diego [Aranesp] SUBCUT Q14D [facility] Non-Formulary Medication 2 mg 02/04/17 21:00 Doxazosin Mesylate [Cardura] PO BEDTIME [facility] Non-Formulary Medication 600 mg 02/04/17 09:00 Gabapentin [Neurontin] PO BID [facility] Non-Formulary Medication 15 units 02/04/17 09:00 Insulin Glarg,Human.Rec.Analog [Lantus Solostar] SQ BID [facility] Non-Formulary Medication 1 tab 02/04/17 09:00 Multivitamin With Minerals [Multiple Vitamin] PO DAILY [facility] Non-Formulary Medication 20 mg 02/04/17 09:00 Omeprazole [Omeprazole] PO DAILY [facility] Potassium Chloride 20 meq 02/04/17 09:00 Klor-Con M20 PO DAILY [facility] Senna/Docusate Sodium tab 02/03/17 23:02 Senna Plus PO BID PRN Constipation Sildenafil Citrate 20 mg 02/03/17 23:15 Revatio PO Q8H [facility] Silver Sulfadiazine 1 gm 02/03/17 23:02 Silvadene 1% Cream 50 Gm TOP BID PRN Wound Care Warfarin Sodium 7.5 - 10 mg 02/03/17 23:15 Coumadin PO ASDIRECTED [facility] - Re-Assessments/Exams Free Text/Narrative Re-Assessment/Exam: 02/03/17 22:07 Patient was continued on 2 L nasal cannula oxygen, a portable chest x-ray was obtained which showed diffuse congestion consistent with his past 2 x-rays over the past month. Hemoglobin is only 8.0, also consistent with past levels. ABGs were also consistent as well as his electrolytes. Although there are no acute changes in his laboratory work or chest x-ray, his profound weakness limits him from going home and I discussed this with his primary care Dr. Griffin. He agreed to see the patient and evaluate for possible admission. Departure - Departure Time of Disposition: 00:12 Disposition: Admitted As Inpatient 64 Condition: poor Clinical Impression: Verma catheter in place, Weakness generalized Chronic CHF (congestive heart failure) Qualifiers: Congestive heart failure type: unspecified congestive heart failure type Qualified Code(s): I50.9 - Heart failure, unspecified Anemia Qualifiers: Anemia type: iron deficiency Iron deficiency anemia type: unspecified iron deficiency Qualified Code(s): D50.9 - Iron deficiency anemia, unspecified - My Orders Last 24 Hours: My Active Orders 02/03/17 21:18 Chest 1V Frontal [CR] Stat - Assessment/Plan Last 24 Hours: My Active Orders 02/03/17 21:18 Chest 1V Frontal [CR] Stat
[2017-02-03] MEDS ORDERED: Silver Sulfadiazine 1% Crm 50 GM Tube TOP PRN (23:02)
--- NOTE | 2017-02-03 23:14 | PCM.HP ---
H&P History of Present Illness - General Date of Service: 02/03/17 Admit Problem/Dx: Admission Diagnosis/Problem Admission Diagnosis/Problem UTI, Urinary tract infection Source of Information: Patient, Family History Limitations: Reports: No limitations - History of Present Illness Initial Comments - Free Text/Narative: He has had increased weakness with dyspnea with minimal exertion and having generalized weakness. He still has lesions in his right foot which has not been healing but slowly and now has ulcers in his button from laying in the bed Onset of Symptoms: Reports: gradual Duration of Symptoms: Reports: Week(s):, Chronic Location: Reports: generalized (weakness) Associated Symptoms: Reports: other (nausea without vomiting) Sacral Pain Score (Numeric/FACES): 2 4 Pain Score (Numeric/FACES): 3 - Related Data Allergies/Adverse Reactions: Allergies Allergy/AdvReac Type Severity Reaction Status Date / Time No Known Allergies Allergy Verified 02/03/17 21:03 Home Medications: Home Meds Gabapentin [Neurontin] 600 mg PO BID 05/28/14 [History] Multivitamin with Minerals [Multiple Vitamin] 1 tab PO DAILY 05/28/14 [History] Cholecalciferol (Vitamin D3) [Vitamin D3] 2,000 unit PO BID 07/27/14 [History] Insulin Lispro [Humalog] 12 units SUBCUT TIDMEALS 12/07/15 [History] Omeprazole 20 mg PO DAILY 12/07/15 [History] Sennosides/Docusate Sodium [Senna-S] 17.2 mg PO BID PRN 12/07/15 [History] traZODone 50 mg PO BEDTIME 12/07/15 [History] Aspirin [Ecotrin] 81 mg PO DAILY 08/29/16 [History] Carvedilol [Coreg] 25 mg PO BID 08/29/16 [History] Melatonin [Melatin] 3 mg PO BEDTIME PRN 08/29/16 [History] atorvaSTATin [Lipitor] 10 mg PO BEDTIME 08/29/16 [History] Albuterol [IJD: Albuterol] 2.5 mg NEB Q4H PRN #0 nebule 09/19/16 [Rx] Albuterol/Ipratropium [DuoNeb 3.0-0.5 MG/3 ML] 3 ml NEB QIDRT neb 11/30/16 [Rx] Insulin Glarg,Human.Rec.Analog [Lantus Solostar] 15 units SQ BID 09/24/16 [ History] Doxazosin Mesylate [Cardura] 2 mg PO BEDTIME #0 10/05/16 [Rx] Potassium Chloride [Klor-Con M20] 20 meq PO DAILY tab.er 10/05/16 [Rx] Sildenafil [Revatio] 20 mg PO Q8H tablet 10/05/16 [Rx] Bumetanide [Bumex] 3 mg PO BID 11/29/16 [History] Darbepoetin Diego [Aranesp] 200 mcg SUBCUT Q14D 11/29/16 [History] Silver Sulfadiazine [Silvadene 1% Cream 50 GM] 0 gm TOP BID PRN #0 tube [Rx] Warfarin [Coumadin] 7.5 - 10 mg PO ASDIRECTED #0 12/02/16 [Rx] Gentamicin [Gentamicin] 400 mg IV Q36H 02/03/17 [History] Past Medical History HEENT History: Reports: Cataract, Epistaxis Cardiovascular History: Reports: Bypass, CAD, Heart Failure, Heart valve replacement, Hypertension, Pacemaker Other Cardiovascular History: Mechanical aortic valve replacement Respiratory History: Reports: COPD, Pneumonia, recurrent, Other (see below) Other Respiratory History: CO2 retention, wears home O2 Gastrointestinal History: Reports: Chronic constipation Genitourinary History: Reports: Diabetic nephropathy Other Genitourinary History: Chronic kidney disease Musculoskeletal History: Reports: Arthritis Neurological History: Reports: CVA Endocrine/Metabolic History: Reports: Diabetes, type II Other Endocrine/Metabolic History: Insulin dependent Hematologic History: Reports: Anemia Oncologic (Cancer) History: Reports: Other (see below) Other Oncologic History: Multiple myeloma - Infectious Disease History Infectious Disease History: Reports: Chicken pox - Past Surgical History Cardiovascular Surgical History: Reports: Cardiac Ablation, Pacer Social & Family History - Family History HEENT: Reports: None Cardiac: Reports: Heart valve replacement Oncologic: Reports: Bone, Colon, Pancreatic, Skin - Tobacco Use Smoking Status *Q: Current Every Day Smoker Years of Tobacco use: 50 Packs/Tins Daily: 1 Second Hand Smoke Exposure: No - Caffeine Use Caffeine Use: Reports: Coffee, Soda, Tea Other Caffeine Use: 2-3 cups coffee per day Caffeine Use Comment: 1-2 cups of coffee/day - Alcohol Use Days Per Week of Alcohol Use: 0 Number of Drinks Per Day: 0 Total Drinks Per Week: 0 - Recreational Drug Use Recreational Drug Use: No H&P Review of Systems - Review of Systems: Review Of Systems: See Below General: Reports: weakness HEENT: Reports: no symptoms Pulmonary: Reports: Shortness of Breath, Wheezing Cardiovascular: Reports: dyspnea on exertion Gastrointestinal: Reports: Constipation, Nausea Skin: Reports: other (non healing wound right foot) Neurological: Reports: Difficulty Walking, Weakness, Gait Disturbance Exam - Exam Exam: See Below - Vital Signs Vital Signs: Last Vital Signs Temp 99.6 F 02/03/17 21:41 Pulse 87 02/03/17 21:41 Resp 20 02/03/17 21:41 BP 114/71 02/03/17 21:41 Pulse Ox 84 L 02/03/17 21:41 Weight: 195 lb 1.745 oz - Exam General: alert, oriented, 4 HEENT: PERRLA, Hearing intact, Mucosa moist & pink, Nares patent, Normal nasal septum, Posterior pharynx clear, Conjunctiva clear, EOMI, EACs clear, TMs clear Neck: supple, trachea midline, 2 Lungs: Decreased breath sounds, Wheezing Cardiovascular: regular rate, regular rhythm Abdomen: normal bowel sounds, soft Extremities: other (lesion at base of 5th toe) Skin: wound Neuro Extensive - Mental Status: alert, oriented x3, normal cognition, memory intact Neuro Extensive - Motor, Sensory, Reflexes: CN II-XII intact DTR: 1+: patella (L), patella (R) Psychiatric: alert, normal affect, normal mood - Patient Data Lab Results last 24 hrs: Laboratory Results - last 24 hr 02/03/17 02/03/17 02/03/17 Range/Units 20:15 20:15 21:18 WBC 6.5 (4.5-11.0) K/uL RBC 2.86 L (4.30-5.90) M/uL Hgb 8.2 L (12.0-15.0) g/dL Hct 27.0 L (40.0-54.0) % MCV 94 (80-98) fL MCH 29 (27-31) pg MCHC 30 L (32-36) % Plt Count 131 L (150-400) K/uL Neut % (Auto) 80 H (36-66) % Lymph % (Auto) 11 L (24-44) % [place] % (Auto) 8 H (2-6) % Eos % (Auto) 1 L (2-4) % Baso % (Auto) 0 (0-1) % Puncture Site Lt.brachial ABG pH 7.434 (7.350-7.450) ABG pCO2 56.8 H (35.0-42.0) mmHg ABG pO2 76.8 (75.0-100.0) mmHg ABG HCO3 37.4 H (22.0-26.0) mmol/L ABG Total CO2 35.5 H (23.0-27.0) mmol/L ABG O2 Saturation 95.4 (95.0-98.0) % ABG O2 Content 10.4 L (15.0-23.0) %vol ABG Base Excess 12.0 mm/L ABG Hemoglobin 7.8 L (13.5-18.0) g/dL ABG Oxyhemoglobin 93.1 % ABG Carboxyhemoglobin 2.0 H (0.0-1.6) % ABG Methemoglobin 0.4 % Ky Test TNP O2 Delivery Device Nasal cannula Oxygen Flow Rate 2 L Sodium 130 L (140-148) mmol/L Potassium 5.0 (3.6-5.2) mmol/L Chloride 89 L (100-108) mmol/L Carbon Dioxide 38 H (21-32) mmol/L Anion Gap 8.0 (5.0-14.0) mmol/L BUN 63 H (7-18) mg/dL Creatinine 1.7 H (0.8-1.3) mg/dL Est Cr Clr Drug Dosing 41.05 mL/min Estimated GFR (MDRD) 40 L (>60) Glucose 191 H (74-106) mg/dL Calcium 8.4 L (8.5-10.1) mg/dL Total Bilirubin 1.0 (0.2-1.0) mg/dL AST 16 (15-37) U/L ALT 20 (12-78) U/L Alkaline Phosphatase 116 (46-116) U/L Total Protein 7.9 (6.4-8.2) g/dL Albumin 2.8 L (3.4-5.0) g/dL Globulin 5.1 H (2.3-3.5) g/dL Albumin/Globulin Ratio 0.6 L (1.2-2.2) Result Diagrams: 02/03/17 20:15 02/05/17 13:00 *Q Meaningful Use (ADM) - VTE *Q VTE Criteria *Q: - Stroke *Q Stroke Criteria *Q: - AMI *Q AMI Criteria *Q: Problem List Initiated/Reviewed/Updated: Yes Orders Last 24hrs: Active Orders 24 hr Category Date Time Status Patient Status [ADT] Routine ADT 02/03/17 22:58 Ordered Height and Weight [RC] DAILY Care 02/03/17 22:47 Ordered Intake and Output [RC] QSHIFT Care 02/03/17 22:59 Ordered May Shower [RC] ASDIRECTED Care 02/03/17 22:47 Ordered Oxygen Therapy [RC] PRN Care 02/03/17 22:58 Ordered Up With Assistance [RC] ASDIRECTED Care 02/03/17 22:47 Ordered Up ad Anai [RC] ASDIRECTED Care 02/03/17 22:47 Ordered Up to Chair [RC] QID Care 02/03/17 22:47 Ordered VTE/DVT Education [RC] Per Unit Routine Care 02/03/17 22:58 Ordered Vital Signs [RC] Q4H Care 02/03/17 22:58 Ordered Consistent Carbohydrate Diet [DIET] Diet 02/04/17 Breakfast Ordered Chest 1V Frontal [CR] Stat Exams 02/03/17 21:18 Taken Albuterol [Proventil Neb Soln] Med 02/03/17 23:02 Ordered 2.5 mg NEB Q4H PRN Albuterol/Ipratropium [DuoNeb 3.0-0.5 MG/3 ML] Med 02/04/17 07:00 Ordered 3 ml NEB QIDRT Aspirin [Halfprin] Med 02/04/17 09:00 Ordered 81 mg PO DAILY Bumetanide [Bumex] Med 02/04/17 09:00 Ordered 3 mg PO BID Carvedilol [Coreg] Med 02/04/17 09:00 Ordered 25 mg PO BID Cholecalciferol (Vitamin D3) [Vitamin D3] Med 02/04/17 09:00 Ordered 2,000 unit PO BID Darbepoetin Diego [Aranesp] Med 02/03/17 23:15 Ordered 200 mcg SUBCUT Q14D Docusate Sodium/Sennosides [Senna Plus] Med 02/03/17 23:02 Ordered 17.2 mg PO BID PRN Doxazosin Mesylate [Cardura] Med 02/04/17 21:00 Ordered 2 mg PO BEDTIME Gabapentin [Neurontin] Med 02/04/17 09:00 Ordered 600 mg PO BID Insulin Glarg,Human.Rec.Analog [Lantus Solostar] Med 02/04/17 09:00 Ordered 15 units SQ BID Insulin Lispro [HumaLOG] Med 02/04/17 08:00 Ordered 12 unit SUBCUT TIDMEALS Melatonin Med 02/03/17 23:02 Ordered 3 mg PO BEDTIME PRN Multivitamin with Minerals [Multiple Vitamin] Med 02/04/17 09:00 Ordered 1 tab PO DAILY Omeprazole [Omeprazole] Med 02/04/17 09:00 Ordered 20 mg PO DAILY Potassium Chloride [Klor-Con M20] Med 02/04/17 09:00 Ordered 20 meq PO DAILY Sildenafil [Revatio] Med 02/03/17 23:15 Ordered 20 mg PO Q8H Silver Sulfadiazine [Silvadene 1% Cream 50 GM] Med 02/03/17 23:02 Ordered 1 gm TOP BID PRN Warfarin [Coumadin] Med 02/03/17 23:15 Ordered 7.5 - 10 mg PO ASDIRECTED atorvaSTATin [Lipitor] Med 02/04/17 21:00 Ordered 10 mg PO BEDTIME Resuscitation Status Routine Resus Stat 02/03/17 22:47 Ordered Assessment/Plan Comment:: #1. Right heart failure with pleural fluid. This is a chronic problem and improved with the present mediation. #2. Monoclonal gammopathy with undetermined significance. This is the cause of his anemia and has been needing blood transfusions on a regular basis. His hemoglobin is 8.3 He will be getting his Aranesp through home care at home as a hospital doesn't give it while hospitalized. #3. Diabetes Type 1. I will give insulin per sliding scale. #4. Peripheral vascular disease. He has no feeling in his feet and then with the ulcers in his feet I will consult principle software engineer again for further foot care. #5. Decubitus ulcer. We'll treat this while in hospital and he should stay off the back so we get better healing. #6. Chronic renal failure. We'll follow kidney functions well in the hospital these vary according to his fluid balance. His creatinine today is 1.7 with a BUN of 63. #7. Hyperlipidemia. #8. Gout. This condition is chronic #9. Macular degeneration. This is due to diabetes and is being followed by ophthalmology. #10. Diabetic foot ulcers. Will dress daily. #11. Artificial heart valve. He is coumadinized and his INR will be followed.
[2017-02-03] MEDS ORDERED: Warfarin 5 MG Tab PO SCH (23:15)
[2017-02-03] MEDS ORDERED: DARBEPOETIN ALFA SUBCUT SCH (23:15)
[2017-02-04] MEDS: Albuterol/Ipratropium 3.0-0.5 MG/3 ML Neb Soln NEB SCH ×4 (07:23→20:34)
[2017-02-04] MEDS ORDERED: Insulin Lispro 100 Units/ML 3 ML Vial SUBCUT SCH (08:00)
[2017-02-04] MEDS: Pantoprazole 40 MG Tab.CR PO SCH (08:32)
[2017-02-04] MEDS: Sildenafil 20 MG Tab PO SCH ×2 (08:34→16:51)
[2017-02-04] MEDS: Carvedilol 25 MG Tab PO SCH ×2 (08:34→20:25)
[2017-02-04] MEDS: Bumetanide 1 MG Tab PO SCH ×2 (08:34→20:24)
[2017-02-04] MEDS: Gabapentin 300 MG Cap PO SCH ×2 (08:35→20:26)
[2017-02-04] MEDS: Aspirin 81 MG Tab.EC PO SCH (08:35)
[2017-02-04] MEDS: Potassium Chloride 20 MEQ Tab.ER PO SCH (08:35)
[2017-02-04] MEDS: Cholecalciferol (Vitamin D3) 1,000 Unit Tab PO SCH ×2 (08:36→20:27)
[2017-02-04] MEDS: Multivitamins with Iron/Calcium/Folic Acid/Minerals Tab PO SCH (08:36)
[2017-02-04] MEDS: Insulin Aspart 100 Units/ML 3 ML Pen SUBCUT SCH ×3 (08:47→18:00)
[2017-02-04] MEDS: Insulin Detemir 100 Units/ML 3 ML Pen SUBCUT SCH ×2 (08:49→21:24)
--- NOTE | 2017-02-04 08:58 | CR ---
Mild cardiomegaly. Hazy airspace disease left midlung zone and left lung base. Mild hazy density rig ht lung base. Small pleural effusion left lung base. Findings concerning for CHF. Correlate for infe ction.
[2017-02-04] MEDS ORDERED: Non-Formulary Medication 1 Each (Omeprazole [Omeprazole] 20 MG) PO SCH (09:00)
[2017-02-04] MEDS ORDERED: Non-Formulary Medication 1 Each (Gabapentin [Neurontin] 600 MG) PO SCH (09:00)
[2017-02-04] MEDS ORDERED: [UNRECOGNIZED DRUG - OTHER] SQ SCH (09:00)
[2017-02-04] MEDS ORDERED: Non-Formulary Medication 1 Each (Multivitamin With Minerals [Multiple Vitamin] 1 TAB) PO SCH (09:00)
[2017-02-04] MEDS ORDERED: Non-Formulary Medication 1 Each (Cholecalciferol (Vitamin D3) [Vitamin D3] 2,000 UNIT) PO SCH (09:00)
[2017-02-04] MEDS ORDERED: INSULIN GLARG HUMAN REC ANALOG 15 UNIT SQ SCH (09:00)
[2017-02-04] MEDS: Nystatin Crm 15 GM Tube TOP SCH ×2 (10:02→20:27)
[2017-02-04] MEDS: Warfarin 5 MG Tab PO SCH (13:25)
--- NOTE | 2017-02-04 19:45 | PCM.PN ---
- General Info Date of Service: 02/04/17 Functional Status: Reports: pain controlled - Review of Systems General: Reports: Fever, Weakness HEENT: Reports: no symptoms Pulmonary: Reports: shortness of breath Cardiovascular: Reports: No Symptoms Gastrointestinal: Reports: Constipation Genitourinary: Reports: frequency, urgency, incontinence Skin: Reports: other (lesion right foot healing) - Patient Data Vitals - most recent: Last Vital Signs Temp 99.7 F 02/04/17 19:00 Pulse 114 H 02/04/17 19:00 Resp 18 02/04/17 19:00 BP 110/63 02/04/17 19:00 Pulse Ox 94 L 02/04/17 19:00 Weight - most recent: 195 lb I&O - last 24 hours: Intake & Output 02/04/17 02/04/17 02/04/17 06:59 14:59 22:59 Intake Total 380 Output Total 850 700 450 Balance -850 -320 -450 Lab Results last 24 hrs: Laboratory Results - last 24 hr 02/04/17 Range/Units 05:48 PT 26.8 H (9.5-12.0) sec INR 2.46 H (0.80-1.20) Med Orders - Current: Current Medications Albuterol (Proventil Neb Soln) 2.5 mg NEB Q4H PRN PRN Reason: Dyspnea Albuterol/Ipratropium (Duoneb 3.0-0.5 Mg/3 Ml) 3 ml NEB QIDRT [facility] Last Admin: 02/04/17 14:46 Dose: 3 ml Aspirin (Halfprin) 81 mg PO DAILY [facility] Last Admin: 02/04/17 08:35 Dose: 81 mg Atorvastatin Calcium (Lipitor) 10 mg PO BEDTIME [facility] Bumetanide (Bumex) 3 mg PO BID [facility] Last Admin: 02/04/17 08:34 Dose: 3 mg Carvedilol (Coreg) 25 mg PO BID [facility] Last Admin: 02/04/17 08:34 Dose: 25 mg Cholecalciferol (Vitamin D3) 2,000 units PO BID [facility] Last Admin: 02/04/17 08:36 Dose: 2,000 units Doxazosin Mesylate (Cardura) 2 mg PO BEDTIME [facility] Gabapentin (Neurontin) 600 mg PO BID [facility] Last Admin: 02/04/17 08:35 Dose: 600 mg Gentamicin Sulfate 400 mg/ (Sodium Chloride) 160 mls @ 106 mls/hr IV Q36H [facility] Stop: 02/06/17 21:31 Insulin Aspart (Novolog) 12 unit SUBCUT TIDMEALS [facility] Last Admin: 02/04/17 18:00 Dose: 12 units Insulin Detemir (Levemir) 15 unit SUBCUT BID [facility] Last Admin: 02/04/17 08:49 Dose: 15 units Melatonin (Melatonin) 3 mg PO BEDTIME PRN PRN Reason: Insomnia Multivitamins/Minerals (Thera M Plus) 1 tab PO DAILY [facility] Last Admin: 02/04/17 08:36 Dose: 1 tab Non-Formulary Medication (Darbepoetin Diego [Aranesp]) 200 mcg SUBCUT Q14D [facility] Nystatin (Nystatin Crm) 0 gm TOP BID [facility] Last Admin: 02/04/17 10:02 Dose: 1 applic Pantoprazole Sodium (Protonix) 40 mg PO ACBREAKFAST [facility] Last Admin: 02/04/17 08:32 Dose: 40 mg Potassium Chloride (Klor-Con M20) 20 meq PO DAILY [facility] Last Admin: 02/04/17 08:35 Dose: 20 meq Senna/Docusate Sodium (Senna Plus) 1 tab PO BID PRN PRN Reason: Constipation Sildenafil Citrate (Revatio) 20 mg PO Q8H [facility] Last Admin: 02/04/17 16:51 Dose: 20 mg Silver Sulfadiazine (Silvadene 1% Cream 50 Gm) 0 gm TOP BID PRN PRN Reason: Wound Care Trazodone HCl (Trazodone) 50 mg PO BEDTIME [facility] Warfarin Sodium (Coumadin) 10 mg PO MoTh@1300 [facility] Last Admin: 02/04/17 13:25 Dose: 10 mg Warfarin Sodium (Coumadin) 7.5 mg PO SuTuWeFrSa@1300 [facility] - Exam General: alert, oriented HEENT: Pupils equal, Pupils reactive, EOMI, Mucous membr. moist/pink Neck: supple Lungs: Clear to auscultation, Normal respiratory effort Cardiovascular: Regular Rate, Regular Rhythm Abdomen: soft, no tenderness Peripheral Pulses: 1+: radial (L), radial (R) Skin: other (lesioin on right foot later aspect) Neurological: no new focal deficit Psy/Mental Status: alert, normal affect, normal mood - Problem List Review Problem List Initiated/Reviewed/Updated: Yes - My Orders Last 24 Hours: My Active Orders 02/03/17 23:02 Albuterol [Proventil Neb Soln] 2.5 mg NEB Q4H PRN Docusate Sodium/Sennosides [Senna Plus] 1 tab PO BID PRN Melatonin 3 mg PO BEDTIME PRN Silver Sulfadiazine [Silvadene 1% Cream 50 GM] 0 gm TOP BID PRN 02/03/17 23:15 Darbepoetin Diego [Aranesp] 200 mcg SUBCUT Q14D 02/04/17 07:00 Albuterol/Ipratropium [DuoNeb 3.0-0.5 MG/3 ML] 3 ml NEB QIDRT 02/04/17 07:30 Pantoprazole [ProTONIX] 40 mg PO ACBREAKFAST 02/04/17 08:00 Insulin Aspart [NovoLOG] 12 unit SUBCUT TIDMEALS Sildenafil [Revatio] 20 mg PO Q8H 02/04/17 09:00 Aspirin [Halfprin] 81 mg PO DAILY Bumetanide [Bumex] 3 mg PO BID Carvedilol [Coreg] 25 mg PO BID Cholecalciferol (Vitamin D3) [Vitamin D3] 2,000 units PO BID Gabapentin [Neurontin] 600 mg PO BID Insulin Detemir [Levemir] 15 unit SUBCUT BID Multivitamins w-Iron/Ca/FA/Min [Thera M Plus] 1 tab PO DAILY Potassium Chloride [Klor-Con M20] 20 meq PO DAILY 02/04/17 09:30 Nystatin [Nystatin Crm] 0 gm TOP BID 02/04/17 12:47 Consult to Physical Therapy [PT Evaluation and Treatment] [CONS] Routine 02/04/17 13:00 Warfarin [Coumadin] 10 mg PO MoTh@1300 02/04/17 19:29 CULTURE URINE [RM] Routine 02/04/17 21:00 GLUCOSE POC LAB TO COLLECT [POC] QIDACANDBED Doxazosin [Cardura] 2 mg PO BEDTIME atorvaSTATin [Lipitor] 10 mg PO BEDTIME traZODone 50 mg PO BEDTIME 02/05/17 08:00 Gentamicin 400 mg Sodium Chloride 0.9% [Normal Saline] 150 ml IV Q36H 02/05/17 13:00 Warfarin [Coumadin] 7.5 mg PO SuTuWeFrSa@1300 - Plan Plan:: #1. Right heart failure with pleural fluid. This is a chronic problem and improved with the present mediation. #2. Monoclonal gammopathy with undetermined significance. This is the cause of his anemia and has been needing blood transfusions on a regular basis. His hemoglobin is 8.3 He will be getting his Aranesp through home care at home as a hospital doesn't give it while hospitalized. #3. Diabetes Type 1. I will give insulin per sliding scale. #4. Peripheral vascular disease. He has no feeling in his feet and then with the ulcers in his right foot. #5. Decubitus ulcer. We'll treat this while in hospital and he should stay off the back so we get better healing. #6. Chronic renal failure. We'll follow kidney functions well in the hospital these vary according to his fluid balance. His creatinine today is 1.7 with a BUN of 63. #7. Hyperlipidemia. #8. Gout. This condition is chronic #9. Macular degeneration. This is due to diabetes and is being followed by ophthalmology. #10. Diabetic foot ulcers. Will dress daily. #11. Artificial heart valve. He is coumadinized and his INR will be followed.
[2017-02-04] MEDS: Doxazosin 4 MG Tab PO SCH (20:26)
[2017-02-04] MEDS: atorvaSTATin 10 MG Tab PO SCH (20:26)
[2017-02-04] MEDS: traZODone 50 MG Tab PO SCH (20:27)
[2017-02-04] MEDS ORDERED: DOXAZOSIN MESYLATE 2 MG PO SCH (21:00)
[2017-02-04] MEDS: Albuterol 0.083% 2.5 MG/3 ML Neb Soln NEB PRN (22:25)
[2017-02-04] MEDS: Melatonin 3 MG Tab PO PRN (22:43)
[2017-02-04] MEDS: LORazepam 0.5 MG Tab PO PRN (23:06)
[2017-02-04] MEDS: Acetaminophen 325 MG Tab PO PRN (23:06)
[2017-02-05] MEDS: Sildenafil 20 MG Tab PO SCH ×3 (00:59→17:52)
[2017-02-05] MEDS: Albuterol/Ipratropium 3.0-0.5 MG/3 ML Neb Soln NEB SCH ×4 (07:10→20:57)
[2017-02-05] MEDS: Pantoprazole 40 MG Tab.CR PO SCH (07:43)
[2017-02-05] MEDS: Insulin Aspart 100 Units/ML 3 ML Pen SUBCUT SCH ×3 (07:44→17:52)
[2017-02-05] MEDS: SODIUM CHLORIDE 0.9% IV SCH (08:14)
[2017-02-05] MEDS: GENTAMICIN IV SCH (08:14)
[2017-02-05] MEDS: Potassium Chloride 20 MEQ Tab.ER PO SCH (08:48)
[2017-02-05] MEDS: Aspirin 81 MG Tab.EC PO SCH (08:48)
[2017-02-05] MEDS: Bumetanide 1 MG Tab PO SCH ×2 (08:49→20:51)
[2017-02-05] MEDS: Gabapentin 300 MG Cap PO SCH ×2 (08:50→20:48)
[2017-02-05] MEDS: Multivitamins with Iron/Calcium/Folic Acid/Minerals Tab PO SCH (08:51)
[2017-02-05] MEDS: Carvedilol 25 MG Tab PO SCH ×2 (08:51→20:49)
[2017-02-05] MEDS: Insulin Detemir 100 Units/ML 3 ML Pen SUBCUT SCH ×2 (08:52→20:59)
[2017-02-05] MEDS: Nystatin Crm 15 GM Tube TOP SCH ×2 (08:59→20:51)
[2017-02-05] MEDS: Cholecalciferol (Vitamin D3) 1,000 Unit Tab PO SCH ×2 (08:59→20:48)
[2017-02-05] MEDS: Albuterol 0.083% 2.5 MG/3 ML Neb Soln NEB PRN (10:28)
[2017-02-05] MEDS: LORazepam 0.5 MG Tab PO PRN (10:51)
[2017-02-05] MEDS: Acetaminophen 325 MG Tab PO PRN (10:51)
[2017-02-05] MEDS: Warfarin 2.5 MG Tab PO SCH (13:21)
--- NOTE | 2017-02-05 19:01 | PCM.PN ---
- General Info Date of Service: 02/05/17 Functional Status: Reports: pain controlled - Review of Systems General: Reports: Weakness HEENT: Reports: no symptoms Pulmonary: Reports: shortness of breath, cough Cardiovascular: Reports: No Symptoms Gastrointestinal: Reports: Decreased appetite Genitourinary: Reports: no symptoms Musculoskeletal: Reports: back pain Skin: Reports: other (decubitus ulcer on buttox) Psychiatric: Reports: no symptoms - Patient Data Vitals - most recent: Last Vital Signs Temp 97.2 F 02/05/17 14:45 Pulse 75 02/05/17 14:55 Resp 16 02/05/17 14:45 BP 120/69 02/05/17 14:45 Pulse Ox 97 02/05/17 14:55 Weight - most recent: 195 lb I&O - last 24 hours: Intake & Output 02/05/17 02/05/17 02/05/17 06:59 14:59 22:59 Intake Total 1270 390 Output Total 650 625 300 Balance -650 645 90 Lab Results last 24 hrs: Laboratory Results - last 24 hr 02/05/17 Range/Units 13:00 Creatinine 1.5 H (0.7-1.3) mg/dL Est Cr Clr Drug Dosing 46.71 mL/min Estimated GFR (MDRD) 46 L (>60) Med Orders - Current: Current Medications Acetaminophen (Tylenol) 650 mg PO Q4H PRN PRN Reason: pain Last Admin: 02/05/17 10:51 Dose: 650 mg Albuterol (Proventil Neb Soln) 2.5 mg NEB Q4H PRN PRN Reason: Dyspnea Last Admin: 02/05/17 10:28 Dose: 2.5 mg Albuterol/Ipratropium (Duoneb 3.0-0.5 Mg/3 Ml) 3 ml NEB QIDRT [facility] Last Admin: 02/05/17 14:54 Dose: 3 ml Aspirin (Halfprin) 81 mg PO DAILY [facility] Last Admin: 02/05/17 08:48 Dose: 81 mg Atorvastatin Calcium (Lipitor) 10 mg PO BEDTIME [facility] Last Admin: 02/04/17 20:26 Dose: 10 mg Bumetanide (Bumex) 3 mg PO BID [facility] Last Admin: 02/05/17 08:49 Dose: 3 mg Carvedilol (Coreg) 25 mg PO BID [facility] Last Admin: 02/05/17 08:51 Dose: 25 mg Cholecalciferol (Vitamin D3) 2,000 units PO BID [facility] Last Admin: 02/05/17 08:59 Dose: 2,000 units Doxazosin Mesylate (Cardura) 2 mg PO BEDTIME [facility] Last Admin: 02/04/17 20:26 Dose: 2 mg Gabapentin (Neurontin) 600 mg PO BID [facility] Last Admin: 02/05/17 08:50 Dose: 600 mg Gentamicin Sulfate 400 mg/ (Sodium Chloride) 160 mls @ 106 mls/hr IV Q36H [facility] Stop: 02/06/17 21:31 Last Admin: 02/05/17 08:14 Dose: 106 mls/hr Meropenem 1 gm/ Sodium (Chloride) 50 mls @ 100 mls/hr IV Q12H [facility] Last Admin: 02/05/17 09:42 Dose: 100 mls/hr Insulin Aspart (Novolog) 12 unit SUBCUT TIDMEALS [facility] Last Admin: 02/05/17 17:52 Dose: 12 units Insulin Detemir (Levemir) 15 unit SUBCUT BID [facility] Last Admin: 02/05/17 08:52 Dose: 15 units Lorazepam (Ativan) 0.5 mg PO Q2H PRN PRN Reason: Anxiety Last Admin: 02/05/17 10:51 Dose: 0.5 mg Melatonin (Melatonin) 3 mg PO BEDTIME PRN PRN Reason: Insomnia Last Admin: 02/04/17 22:43 Dose: 3 mg Multivitamins/Minerals (Thera M Plus) 1 tab PO DAILY [facility] Last Admin: 02/05/17 08:51 Dose: 1 tab Non-Formulary Medication (Darbepoetin Diego [Aranesp]) 200 mcg SUBCUT Q14D [facility] Nystatin (Nystatin Crm) 0 gm TOP BID [facility] Last Admin: 02/05/17 08:59 Dose: 1 applic Pantoprazole Sodium (Protonix) 40 mg PO ACBREAKFAST [facility] Last Admin: 02/05/17 07:43 Dose: 40 mg Potassium Chloride (Klor-Con M20) 20 meq PO DAILY [facility] Last Admin: 02/05/17 08:48 Dose: 20 meq Senna/Docusate Sodium (Senna Plus) 1 tab PO BID PRN PRN Reason: Constipation Sildenafil Citrate (Revatio) 20 mg PO Q8H [facility] Last Admin: 02/05/17 17:52 Dose: 20 mg Silver Sulfadiazine (Silvadene 1% Cream 50 Gm) 0 gm TOP BID PRN PRN Reason: Wound Care Trazodone HCl (Trazodone) 50 mg PO BEDTIME [facility] Last Admin: 02/04/17 20:27 Dose: 50 mg Warfarin Sodium (Coumadin) 10 mg PO MoTh@1300 [facility] Last Admin: 02/04/17 13:25 Dose: 10 mg Warfarin Sodium (Coumadin) 7.5 mg PO SuTuWeFrSa@1300 [facility] Last Admin: 02/05/17 13:21 Dose: 7.5 mg - Exam General: alert, oriented, cooperative, mild distress HEENT: Pupils equal, Pupils reactive, EOMI, Mucous membr. moist/pink Neck: supple Lungs: Clear to auscultation, Normal respiratory effort Cardiovascular: Regular Rate, Regular Rhythm Extremities: other (lesion on right foot) Peripheral Pulses: 1+: radial (L), radial (R) Wound/Incisions: decubitis (Large uler on buttox treated and need to stay off the buttox area) Psy/Mental Status: alert, normal affect, normal mood - Problem List Review Problem List Initiated/Reviewed/Updated: Yes - My Orders Last 24 Hours: My Active Orders 02/04/17 20:15 CULTURE URINE [RM] Routine 02/04/17 20:22 Consult to Physician [CONS] Routine 02/04/17 20:23 Notify Provider Consults [RC] ASDIRECTED 02/04/17 21:00 Doxazosin [Cardura] 2 mg PO BEDTIME atorvaSTATin [Lipitor] 10 mg PO BEDTIME traZODone 50 mg PO BEDTIME 02/04/17 22:48 Acetaminophen [Tylenol] 650 mg PO Q4H PRN 02/04/17 22:49 LORazepam [Ativan] 0.5 mg PO Q2H PRN 02/05/17 08:00 Gentamicin 400 mg Sodium Chloride 0.9% [Normal Saline] 150 ml IV Q36H 02/05/17 10:00 Meropenem [Merrem] 1 gm Sodium Chloride 0.9% [Normal Saline] 50 ml IV Q12H 02/05/17 10:41 RT Acapella [RESPCARE] Routine 02/05/17 13:00 Warfarin [Coumadin] 7.5 mg PO Sushma@1300 02/05/17 21:00 GLUCOSE POC LAB TO COLLECT [POC] QIDACANDBED 02/06/17 05:11 BASIC METABOLIC PANEL,BMP [CHEM] Routine CBC WITH AUTO DIFF [HEME] Routine - Plan Plan:: #1. Right heart failure with pleural fluid. This is a chronic problem and improved with the present mediation. #2. Monoclonal gammopathy with undetermined significance. This is the cause of his anemia and has been needing blood transfusions on a regular basis. His hemoglobin is 8.3 He will be getting his Aranesp through home care at home as a hospital doesn't give it while hospitalized. #3. Diabetes Type 1. I will give insulin per sliding scale. #4. Peripheral vascular disease. He has no feeling in his feet and then with the ulcers in his right foot. #5. Decubitus ulcer. We'll treat this while in hospital and he should stay off the back so we get better healing. Treated today and redressed. #6. Chronic renal failure. We'll follow kidney functions well in the hospital these vary according to his fluid balance. His creatinine today is 1.7 with a BUN of 63. #7. Hyperlipidemia. #8. Gout. This condition is chronic #9. Macular degeneration. This is due to diabetes and is being followed by ophthalmology. #10. Diabetic foot ulcers. Will dress daily. #11. Artificial heart valve. He is coumadinized and his INR will be followed.
[2017-02-05] MEDS: Doxazosin 4 MG Tab PO SCH (20:50)
[2017-02-05] MEDS: atorvaSTATin 10 MG Tab PO SCH (20:51)
[2017-02-05] MEDS: Melatonin 3 MG Tab PO PRN (20:57)
[2017-02-05] MEDS: traZODone 50 MG Tab PO SCH (21:00)
[2017-02-06] MEDS: LORazepam 0.5 MG Tab PO PRN (00:39)
[2017-02-06] MEDS: Sildenafil 20 MG Tab PO SCH ×3 (00:39→16:01)
[2017-02-06] MEDS ORDERED: 50% Dextrose in Water 50 ML Syringe IVPUSH ONE (06:14)
[2017-02-06] MEDS ORDERED: 50% Dextrose in Water 50 ML Syringe ONE (06:16)
[2017-02-06] MEDS: Albuterol/Ipratropium 3.0-0.5 MG/3 ML Neb Soln NEB SCH ×4 (07:16→20:45)
[2017-02-06] MEDS ORDERED: 50% Dextrose in Water 50 ML Syringe IV ONE (07:45)
--- NOTE | 2017-02-06 08:57 | PN ---
DATE OF SERVICE: 02/05/2017 SUBJECTIVE: The patient is a 71-year-old male, seen at bedside for followup on ulceration on the bottom of the right foot. The patient denies having any other problems with his feet at this time. OBJECTIVE: GENERAL: The patient is alert and oriented x3. In no acute distress. DERMATOLOGIC: Examination reveals an ulceration on the plantar aspect of the right 5th metatarsal head that has healed. There is just a hyperkeratotic lesion there. After this was debrided, there is intact skin present. There is no purulence, no malodor. No signs of infection. The posterior aspect of the left heel has healthy intact skin as well with no purulence and no malodor. No signs of infection. No open wounds. ASSESSMENT: 1. Diabetes mellitus. 2. Peripheral vascular disease. 3. Callus to right foot to 5th metatarsal head. PLAN: The patient was examined and evaluated. Calluses debrided x1. Right foot was dressed with a dry sterile dressing due to a small pinpoint area of bleeding after debridement. The patient to follow up with Dr. Stewart in the clinic after discharge. Luther Stewart DPM /[id number]
[2017-02-06] MEDS: Pantoprazole 40 MG Tab.CR PO SCH (09:16)
[2017-02-06] MEDS: Potassium Chloride 20 MEQ Tab.ER PO SCH (09:17)
[2017-02-06] MEDS: Bumetanide 1 MG Tab PO SCH ×2 (09:17→20:05)
[2017-02-06] MEDS: Carvedilol 25 MG Tab PO SCH ×2 (09:17→20:10)
[2017-02-06] MEDS: Insulin Aspart 100 Units/ML 3 ML Pen SUBCUT SCH ×3 (09:17→17:20)
[2017-02-06] MEDS: Gabapentin 300 MG Cap PO SCH ×2 (09:18→20:07)
[2017-02-06] MEDS: Insulin Detemir 100 Units/ML 3 ML Pen SUBCUT SCH ×2 (09:18→20:34)
--- NOTE | 2017-02-06 09:18 | CT ---
CT head without contrast Indication: Neuro status. Total DOP 854. Comparison: 09/30/2014. Findings: Patchy hypodensity within the right frontal and parietal lobes. This is indicative of old infarct is evident on prior examination. Moderate hypodensity surrounding the periventricular white matter which can indicate chronic small vessel ischemic disease. No evidence for acute hemorrhage. N o mass effect or midline shift. Calvarium intact. Moderate mucosal thickening left maxillary sinus a nd into the ethmoid air cells. Impression: 1. 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 2. No subacute territorial infarct or hemorrhage.
[2017-02-06] MEDS: Multivitamins with Iron/Calcium/Folic Acid/Minerals Tab PO SCH (09:19)
[2017-02-06] MEDS: Cholecalciferol (Vitamin D3) 1,000 Unit Tab PO SCH ×2 (09:19→20:09)
[2017-02-06] MEDS: Aspirin 81 MG Tab.EC PO SCH (09:20)
[2017-02-06] MEDS: Nystatin Crm 15 GM Tube TOP SCH ×2 (09:47→20:37)
[2017-02-06] MEDS: Warfarin 2.5 MG Tab PO SCH (14:17)
--- NOTE | 2017-02-06 19:20 | PCM.PN ---
- General Info Date of Service: 02/06/17 Subjective Update: This morning he had hypoglycemia followed by a unresponsive condition. We did do a CT of the head which showed no acute pathology. There was evidence of an old cerebrovascular accident. He was transferred to the ICU and then woke up later. At 7 PM he is laying in bed with his BiPAP. - Review of Systems General: Reports: Weakness Pulmonary: Reports: shortness of breath, wheezing Cardiovascular: Reports: No Symptoms Gastrointestinal: Reports: No symptoms Genitourinary: Reports: no symptoms Musculoskeletal: Reports: no symptoms Neurological: Reports: Difficulty Walking, Weakness Psychiatric: Reports: mood lability - Patient Data Vitals - most recent: Last Vital Signs Temp 99.7 F 02/06/17 18:04 Pulse 75 02/06/17 18:04 Resp 23 H 02/06/17 17:17 BP 128/58 L 02/06/17 18:04 Pulse Ox 93 L 02/06/17 17:17 Weight - most recent: 188 lb 7.924 oz I&O - last 24 hours: Intake & Output 02/06/17 02/06/17 02/06/17 06:59 14:59 22:59 Intake Total 290 234 Output Total 600 925 150 Balance -310 -925 84 Lab Results last 24 hrs: Laboratory Results - last 24 hr 02/06/17 02/06/17 02/06/17 Range/Units 05:52 05:52 08:01 WBC 6.4 (4.5-11.0) K/uL RBC 2.84 L (4.30-5.90) M/uL Hgb 8.1 L (12.0-15.0) g/dL Hct 27.5 L (40.0-54.0) % MCV 97 (80-98) fL MCH 29 (27-31) pg MCHC 30 L (32-36) % Plt Count 128 L (150-400) K/uL Neut % (Auto) 78 H (36-66) % Lymph % (Auto) 10 L (24-44) % Cooper % (Auto) 11 H (2-6) % Eos % (Auto) 2 (2-4) % Baso % (Auto) 0 (0-1) % Puncture Site ABG pH (7.350-7.450) ABG pCO2 (35.0-42.0) mmHg ABG pO2 (75.0-100.0) mmHg ABG HCO3 (22.0-26.0) mmol/L ABG Total CO2 (23.0-27.0) mmol/L ABG O2 Saturation (95.0-98.0) % ABG O2 Content (15.0-23.0) %vol ABG Base Excess mm/L ABG Hemoglobin (13.5-18.0) g/dL ABG Oxyhemoglobin % ABG Carboxyhemoglobin (0.0-1.6) % ABG Methemoglobin % Ky Test O2 Delivery Device Oxygen Flow Rate L Sodium 139 L (140-148) mmol/L Potassium 4.2 (3.6-5.2) mmol/L Chloride 98 L (100-108) mmol/L Carbon Dioxide 43 H (21-32) mmol/L Anion Gap 2.2 L (5.0-14.0) mmol/L BUN 61 H (7-18) mg/dL Creatinine 1.5 H (0.8-1.3) mg/dL Est Cr Clr Drug Dosing 46.71 mL/min Estimated GFR (MDRD) 46 L (>60) Glucose 30 L* (74-106) mg/dL Calcium 8.4 L (8.5-10.1) mg/dL Creatine Kinase 22 L (39-308) U/L Troponin I 0.021 (0.000-0.056) ng/mL 02/06/17 02/06/17 Range/Units 08:49 09:23 WBC (4.5-11.0) K/uL RBC (4.30-5.90) M/uL Hgb (12.0-15.0) g/dL Hct (40.0-54.0) % MCV (80-98) fL MCH (27-31) pg MCHC (32-36) % Plt Count (150-400) K/uL Neut % (Auto) (36-66) % Lymph % (Auto) (24-44) % [place] % (Auto) (2-6) % Eos % (Auto) (2-4) % Baso % (Auto) (0-1) % Puncture Site Lt brachial Lt brachial ABG pH 7.261 L 7.271 L (7.350-7.450) ABG pCO2 95.4 H* 92.5 H* (35.0-42.0) mmHg ABG pO2 197.0 H 98.9 (75.0-100.0) mmHg ABG HCO3 41.5 H 41.1 H (22.0-26.0) mmol/L ABG Total CO2 40.9 H 40.4 H (23.0-27.0) mmol/L ABG O2 Saturation 99.6 H 96.7 (95.0-98.0) % ABG O2 Content 10.7 L 10.3 L (15.0-23.0) %vol ABG Base Excess 13.0 12.8 mm/L ABG Hemoglobin 7.5 L 7.6 L (13.5-18.0) g/dL ABG Oxyhemoglobin 97.1 94.5 % ABG Carboxyhemoglobin 1.9 H 2.0 H (0.0-1.6) % ABG Methemoglobin 0.6 0.3 % Ky Test None None O2 Delivery Device Nasal cannula Nasal cannula Oxygen Flow Rate L Sodium (140-148) mmol/L Potassium (3.6-5.2) mmol/L Chloride (100-108) mmol/L Carbon Dioxide (21-32) mmol/L Anion Gap (5.0-14.0) mmol/L BUN (7-18) mg/dL Creatinine (0.8-1.3) mg/dL Est Cr Clr Drug Dosing mL/min Estimated GFR (MDRD) (>60) Glucose (74-106) mg/dL Calcium (8.5-10.1) mg/dL Creatine Kinase (39-308) U/L Troponin I (0.000-0.056) ng/mL Jermaine Results last 24 hrs: Microbiology 02/04/17 20:15 Urine Culture - Preliminary Urine, Catheterized Med Orders - Current: Current Medications Acetaminophen (Tylenol) 650 mg PO Q4H PRN PRN Reason: pain Last Admin: 02/05/17 10:51 Dose: 650 mg Albuterol (Proventil Neb Soln) 2.5 mg NEB Q4H PRN PRN Reason: Dyspnea Last Admin: 02/05/17 10:28 Dose: 2.5 mg Albuterol/Ipratropium (Duoneb 3.0-0.5 Mg/3 Ml) 3 ml NEB QIDRT [facility] Last Admin: 02/06/17 14:48 Dose: 3 ml Aspirin (Halfprin) 81 mg PO DAILY [facility] Last Admin: 02/06/17 09:20 Dose: Not Given Atorvastatin Calcium (Lipitor) 10 mg PO BEDTIME [facility] Last Admin: 02/05/17 20:51 Dose: 10 mg Bumetanide (Bumex) 3 mg PO BID [facility] Last Admin: 02/06/17 09:17 Dose: Not Given Carvedilol (Coreg) 25 mg PO BID [facility] Last Admin: 02/06/17 09:17 Dose: Not Given Cholecalciferol (Vitamin D3) 2,000 units PO BID [facility] Last Admin: 02/06/17 09:19 Dose: Not Given Doxazosin Mesylate (Cardura) 2 mg PO BEDTIME [facility] Last Admin: 02/05/17 20:50 Dose: 2 mg Gabapentin (Neurontin) 600 mg PO BID [facility] Last Admin: 02/06/17 09:18 Dose: Not Given Gentamicin Sulfate 400 mg/ (Sodium Chloride) 160 mls @ 106 mls/hr IV Q36H [facility] Stop: 02/06/17 21:31 Last Admin: 02/05/17 08:14 Dose: 106 mls/hr Meropenem 1 gm/ Sodium (Chloride) 50 mls @ 100 mls/hr IV Q12H [facility] Last Admin: 02/06/17 10:19 Dose: 100 mls/hr Insulin Aspart (Novolog) 12 unit SUBCUT TIDMEALS [facility] Last Admin: 02/06/17 17:20 Dose: 12 units Insulin Detemir (Levemir) 15 unit SUBCUT BID [facility] Last Admin: 02/06/17 09:18 Dose: Not Given Lorazepam (Ativan) 0.5 mg PO Q2H PRN PRN Reason: Anxiety Last Admin: 02/06/17 00:39 Dose: 0.5 mg Lorazepam (Ativan) 0.5 mg IVPUSH Q2H PRN PRN Reason: Anxiety Melatonin (Melatonin) 3 mg PO BEDTIME PRN PRN Reason: Insomnia Last Admin: 02/05/17 20:57 Dose: 3 mg Multivitamins/Minerals (Thera M Plus) 1 tab PO DAILY [facility] Last Admin: 02/06/17 09:19 Dose: Not Given Non-Formulary Medication (Darbepoetin Diego [Aranesp]) 200 mcg SUBCUT Q14D [facility] Nystatin (Nystatin Crm) 0 gm TOP BID [facility] Last Admin: 02/06/17 09:47 Dose: Not Given Pantoprazole Sodium (Protonix) 40 mg PO ACBREAKFAST [facility] Last Admin: 02/06/17 09:16 Dose: Not Given Potassium Chloride (Klor-Con M20) 20 meq PO DAILY [facility] Last Admin: 02/06/17 09:17 Dose: Not Given Senna/Docusate Sodium (Senna Plus) 1 tab PO BID PRN PRN Reason: Constipation Last Admin: 02/05/17 20:57 Dose: 1 tab Sildenafil Citrate (Revatio) 20 mg PO Q8H [facility] Last Admin: 02/06/17 16:01 Dose: 20 mg Silver Sulfadiazine (Silvadene 1% Cream 50 Gm) 0 gm TOP BID PRN PRN Reason: Wound Care Trazodone HCl (Trazodone) 50 mg PO BEDTIME [facility] Last Admin: 02/05/17 21:00 Dose: 50 mg Warfarin Sodium (Coumadin) 10 mg PO MoTh@1300 [facility] Last Admin: 02/04/17 13:25 Dose: 10 mg Warfarin Sodium (Coumadin) 7.5 mg PO SuTuWeFrSa@1300 [facility] Last Admin: 02/06/17 14:17 Dose: 7.5 mg Discontinued Medications Dextrose/Water (Dextrose 50% In Water) 50 ml IVPUSH ONETIME ONE Stop: 02/06/17 06:15 Last Admin: 02/06/17 06:21 Dose: 50 ml Dextrose/Water (Dextrose 50% In Water) Confirm Administered Dose 50 ml .ROUTE .STK-MED ONE Stop: 02/06/17 06:17 Last Admin: 02/06/17 06:21 Dose: Not Given Dextrose/Water (Dextrose 50% In Water) 50 ml IV ONETIME ONE Stop: 02/06/17 07:46 Last Admin: 02/06/17 09:46 Dose: 50 ml - Exam General: oriented, cooperative, moderate distress HEENT: Pupils equal, Pupils reactive, EOMI, Mucous membr. moist/pink Neck: supple Lungs: Decreased breath sounds Cardiovascular: Irregular Rhythm Abdomen: soft, no tenderness, no distension Peripheral Pulses: 1+: radial (L), radial (R) Skin: warm, dry, intact Wound/Incisions: healing well Neurological: no new focal deficit Psy/Mental Status: normal affect, labile mood - Problem List Review Problem List Initiated/Reviewed/Updated: Yes - My Orders Last 24 Hours: My Active Orders 02/05/17 19:46 LORazepam [Ativan] 0.5 mg IVPUSH Q2H PRN 02/06/17 08:01 EKG 12 Lead [EK] Routine 02/06/17 09:49 Transfer Patient (Change bed) [ADT] Routine 02/06/17 11:46 Blood Glucose Check, Bedside [RC] QIDACANDBED - Plan Plan:: #1. Right heart failure with pleural fluid. This is a chronic problem and improved with the present medication. #2. Monoclonal gammopathy with undetermined significance. This is the cause of his anemia and has been needing blood transfusions on a regular basis. His hemoglobin is 8.3 He will be getting his Aranesp through home care at home as a hospital doesn't give it while hospitalized. #3. Diabetes Type 1. I will give insulin per sliding scale. He was hypoglycemia this morning. #4. Peripheral vascular disease. He has no feeling in his feet and then with the ulcers in his right foot. #5. Decubitus ulcer. We'll treat this while in hospital and he should stay off the back so we get better healing. Treated today and redressed. #6. Chronic renal failure. We'll follow kidney functions well in the hospital these vary according to his fluid balance. His creatinine today is 1.5 with a BUN of 61 #7. Hyperlipidemia. #8. Gout. This condition is chronic #9. Macular degeneration. This is due to diabetes and is being followed by ophthalmology. #10. Diabetic foot ulcers. Will dress daily. #11. Artificial heart valve. He is coumadinized and his INR will be followed. #12. Respiratory failure. The PCO2 was 95 this morning. He had been transferred to the ICU and has been stable except for respiratory difficulties. He did have a CT of the head which revealed no pathologic this morning.
[2017-02-06] MEDS: Doxazosin 4 MG Tab PO SCH (20:05)
[2017-02-06] MEDS: atorvaSTATin 10 MG Tab PO SCH (20:07)
[2017-02-06] MEDS: traZODone 50 MG Tab PO SCH (20:24)
[2017-02-06] MEDS: GENTAMICIN IV SCH (20:39)
[2017-02-06] MEDS: SODIUM CHLORIDE 0.9% IV SCH (20:39)
[2017-02-06] MEDS: LORazepam 2 MG/ML MDV IVPUSH PRN (21:47)
[2017-02-07] MEDS: LORazepam 0.5 MG Tab PO PRN (00:11)
[2017-02-07] MEDS: Melatonin 3 MG Tab PO PRN (00:11)
[2017-02-07] MEDS: Sildenafil 20 MG Tab PO SCH ×3 (00:11→15:44)
[2017-02-07] MEDS: Albuterol/Ipratropium 3.0-0.5 MG/3 ML Neb Soln NEB SCH ×4 (07:18→20:58)
[2017-02-07] MEDS: Pantoprazole 40 MG Tab.CR PO SCH (07:41)
[2017-02-07] MEDS: Insulin Aspart 100 Units/ML 3 ML Pen SUBCUT SCH (08:40)
[2017-02-07] MEDS: Insulin Detemir 100 Units/ML 3 ML Pen SUBCUT SCH ×2 (09:23→20:57)
--- NOTE | 2017-02-07 09:34 | PCM.PN ---
- General Info Date of Service: 02/07/17 Admission Dx/Problem (Free Text): Will He said he is feeling good this morning. Has no concerns no complaints. He said he didn't sleep well last night he is concerned about possible . Functional Status: Reports: pain controlled - Review of Systems General: Reports: Weakness Pulmonary: Reports: shortness of breath Cardiovascular: Reports: No Symptoms Gastrointestinal: Reports: Vomiting, Other (He did vomit after sounded blood sugar was 40 food was given and he vomited this up his blood sugars are stable.) Genitourinary: Reports: no symptoms Musculoskeletal: Reports: other (Numbness in the feet.) Skin: Reports: no symptoms Neurological: Reports: Tingling, Difficulty Walking, Weakness, Gait Disturbance Psychiatric: Reports: no symptoms - Patient Data Vitals - most recent: Last Vital Signs Temp 97.3 F 02/07/17 08:00 Pulse 75 02/07/17 09:00 Resp 18 02/07/17 09:00 BP 128/56 L 02/07/17 09:00 Pulse Ox 93 L 02/07/17 09:00 Weight - most recent: 189 lb I&O - last 24 hours: Intake & Output 02/06/17 02/07/17 02/07/17 22:59 06:59 14:59 Intake Total 234 800 600 Output Total 150 850 Balance 84 -50 600 Lab Results last 24 hrs: Laboratory Results - last 24 hr 02/06/17 02/07/17 02/07/17 Range/Units 09:23 07:17 07:17 WBC 7.2 (4.5-11.0) K/uL RBC 2.80 L (4.30-5.90) M/uL Hgb 8.0 L (12.0-15.0) g/dL Hct 26.9 L (40.0-54.0) % MCV 96 (80-98) fL MCH 29 (27-31) pg MCHC 30 L (32-36) % Plt Count 128 L (150-400) K/uL Neut % (Auto) 82 H (36-66) % Lymph % (Auto) 8 L (24-44) % [place] % (Auto) 9 H (2-6) % Eos % (Auto) 1 L (2-4) % Baso % (Auto) 0 (0-1) % Puncture Site Lt brachial ABG pH 7.271 L (7.350-7.450) ABG pCO2 92.5 H* (35.0-42.0) mmHg ABG pO2 98.9 (75.0-100.0) mmHg ABG HCO3 41.1 H (22.0-26.0) mmol/L ABG Total CO2 40.4 H (23.0-27.0) mmol/L ABG O2 Saturation 96.7 (95.0-98.0) % ABG O2 Content 10.3 L (15.0-23.0) %vol ABG Base Excess 12.8 mm/L ABG Hemoglobin 7.6 L (13.5-18.0) g/dL ABG Oxyhemoglobin 94.5 % ABG Carboxyhemoglobin 2.0 H (0.0-1.6) % ABG Methemoglobin 0.3 % Ky Test None O2 Delivery Device Nasal cannula Oxygen Flow Rate L Sodium 137 L (140-148) mmol/L Potassium 4.3 (3.6-5.2) mmol/L Chloride 96 L (100-108) mmol/L Carbon Dioxide 41 H (21-32) mmol/L Anion Gap 4.3 L (5.0-14.0) mmol/L BUN 61 H (7-18) mg/dL Creatinine 1.5 H (0.8-1.3) mg/dL Est Cr Clr Drug Dosing 46.71 mL/min Estimated GFR (MDRD) 46 L (>60) Glucose 40 L* (74-106) mg/dL Calcium 8.4 L (8.5-10.1) mg/dL Jermaine Results last 24 hrs: Microbiology 02/04/17 20:15 Urine Culture - Preliminary Urine, Catheterized [facility] Med Orders - Current: Current Medications Acetaminophen (Tylenol) 650 mg PO Q4H PRN PRN Reason: pain Last Admin: 02/05/17 10:51 Dose: 650 mg Albuterol (Proventil Neb Soln) 2.5 mg NEB Q4H PRN PRN Reason: Dyspnea Last Admin: 02/05/17 10:28 Dose: 2.5 mg Albuterol/Ipratropium (Duoneb 3.0-0.5 Mg/3 Ml) 3 ml NEB QIDRT [facility] Last Admin: 02/07/17 07:18 Dose: 3 ml Aspirin (Halfprin) 81 mg PO DAILY [facility] Last Admin: 02/06/17 09:20 Dose: Not Given Atorvastatin Calcium (Lipitor) 10 mg PO BEDTIME [facility] Last Admin: 02/06/17 20:07 Dose: 10 mg Bumetanide (Bumex) 3 mg PO BID [facility] Last Admin: 02/06/17 20:05 Dose: 3 mg Carvedilol (Coreg) 25 mg PO BID [facility] Last Admin: 02/06/17 20:10 Dose: 25 mg Cholecalciferol (Vitamin D3) 2,000 units PO BID [facility] Last Admin: 02/06/17 20:09 Dose: 2,000 units Doxazosin Mesylate (Cardura) 2 mg PO BEDTIME [facility] Last Admin: 02/06/17 20:05 Dose: 2 mg Gabapentin (Neurontin) 600 mg PO BID [facility] Last Admin: 02/06/17 20:07 Dose: 600 mg Meropenem 1 gm/ Sodium (Chloride) 50 mls @ 100 mls/hr IV Q12H [facility] Last Admin: 02/06/17 21:41 Dose: 100 mls/hr Insulin Aspart (Novolog) 12 unit SUBCUT TIDMEALS [facility] Last Admin: 02/07/17 08:40 Dose: Not Given Insulin Detemir (Levemir) 15 unit SUBCUT BID [facility] Last Admin: 02/07/17 09:23 Dose: Not Given Lorazepam (Ativan) 0.5 mg PO Q2H PRN PRN Reason: Anxiety Last Admin: 02/07/17 00:11 Dose: 0.5 mg Lorazepam (Ativan) 0.5 mg IVPUSH Q2H PRN PRN Reason: Anxiety Last Admin: 02/06/17 21:47 Dose: 0.5 mg Melatonin (Melatonin) 3 mg PO BEDTIME PRN PRN Reason: Insomnia Last Admin: 02/07/17 00:11 Dose: 3 mg Multivitamins/Minerals (Thera M Plus) 1 tab PO DAILY [facility] Last Admin: 02/06/17 09:19 Dose: Not Given Non-Formulary Medication (Darbepoetin Diego [Aranesp]) 200 mcg SUBCUT Q14D [facility] Nystatin (Nystatin Crm) 0 gm TOP BID [facility] Last Admin: 02/06/17 20:37 Dose: 1 applic Pantoprazole Sodium (Protonix) 40 mg PO ACBREAKFAST [facility] Last Admin: 02/07/17 07:41 Dose: 40 mg Potassium Chloride (Klor-Con M20) 20 meq PO DAILY [facility] Last Admin: 02/06/17 09:17 Dose: Not Given Senna/Docusate Sodium (Senna Plus) 1 tab PO BID PRN PRN Reason: Constipation Last Admin: 02/05/17 20:57 Dose: 1 tab Sildenafil Citrate (Revatio) 20 mg PO Q8H [facility] Last Admin: 02/07/17 00:11 Dose: 20 mg Silver Sulfadiazine (Silvadene 1% Cream 50 Gm) 0 gm TOP BID PRN PRN Reason: Wound Care Trazodone HCl (Trazodone) 50 mg PO BEDTIME [facility] Last Admin: 02/06/17 20:24 Dose: 50 mg Warfarin Sodium (Coumadin) 10 mg PO MoTh@1300 [facility] Last Admin: 02/04/17 13:25 Dose: 10 mg Warfarin Sodium (Coumadin) 7.5 mg PO SuTuWeFrSa@1300 [facility] Last Admin: 02/06/17 14:17 Dose: 7.5 mg Discontinued Medications Dextrose/Water (Dextrose 50% In Water) 50 ml IVPUSH ONETIME ONE Stop: 02/06/17 06:15 Last Admin: 02/06/17 06:21 Dose: 50 ml Dextrose/Water (Dextrose 50% In Water) Confirm Administered Dose 50 ml .ROUTE .STK-MED ONE Stop: 02/06/17 06:17 Last Admin: 02/06/17 06:21 Dose: Not Given Dextrose/Water (Dextrose 50% In Water) 50 ml IV ONETIME ONE Stop: 02/06/17 07:46 Last Admin: 02/06/17 09:46 Dose: 50 ml Gentamicin Sulfate 400 mg/ (Sodium Chloride) 160 mls @ 106 mls/hr IV Q36H [facility] Stop: 02/06/17 21:31 Last Admin: 02/06/17 20:39 Dose: 106 mls/hr - Exam General: alert, cooperative, moderate distress HEENT: Pupils equal, Pupils reactive, EOMI, Mucous membr. moist/pink Neck: supple Lungs: Clear to auscultation, Normal respiratory effort Cardiovascular: Regular Rate, Regular Rhythm Abdomen: bowel sounds present, soft, no tenderness, no distension Extremities: no edema Peripheral Pulses: 1+: radial (L), radial (R) Psy/Mental Status: alert, normal mood, labile mood - Problem List Review Problem List Initiated/Reviewed/Updated: Yes - My Orders Last 24 Hours: My Active Orders 02/06/17 09:49 Transfer Patient (Change bed) [ADT] Routine 02/06/17 11:46 Blood Glucose Check, Bedside [RC] QIDACANDBED - Plan Plan:: #1. Right heart failure with pleural fluid. This is a chronic problem and improved with the present medication. #2. 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 This is the cause of his anemia and has been needing blood transfusions on a regular basis. His hemoglobin is 8.0 He will be getting his Aranesp through home care at home as a hospital doesn't give it while hospitalized. #3. Diabetes Type 1. I will give insulin per sliding scale. He was hypoglycemia again this morning with a blood sugar of 40. I will change his diabetic medication. #4. Peripheral vascular disease. He has no feeling in his feet and then with the ulcers in his right foot. #5. Decubitus ulcer. We'll treat this while in hospital and he should stay off the back so we get better healing. Treated today and redressed. #6. Chronic renal failure. We'll follow kidney functions well in the hospital these vary according to his fluid balance. His creatinine today is 1.5 with a BUN of 61 which is the same as it was yesterday. #7. Hyperlipidemia. #8. Gout. This condition is chronic #9. Macular degeneration. This is due to diabetes and is being followed by ophthalmology. #10. Diabetic foot ulcers. Will dress daily. #11. Artificial heart valve. He is coumadinized and his INR will be followed. #12. Respiratory failure. The PCO2 was 95 this morning. He had been transferred to the ICU and has been stable except for respiratory difficulties. He did have a CT of the head which revealed no pathologic this morning.
[2017-02-07] MEDS ORDERED: 50% Dextrose in Water 50 ML Syringe IVPUSH PRN (11:18)
[2017-02-07] MEDS ORDERED: Glucose Gel 15 GM in 37.5 GM Tube PO PRN (11:18)
[2017-02-07] MEDS ORDERED: Glucagon,Human Recombinant 1 MG Vial IM PRN (11:18)
[2017-02-07] MEDS: Cholecalciferol (Vitamin D3) 1,000 Unit Tab PO SCH ×2 (11:50→21:01)
[2017-02-07] MEDS: Bumetanide 1 MG Tab PO SCH ×2 (11:50→21:02)
[2017-02-07] MEDS: Aspirin 81 MG Tab.EC PO SCH (11:51)
[2017-02-07] MEDS: Multivitamins with Iron/Calcium/Folic Acid/Minerals Tab PO SCH (11:51)
[2017-02-07] MEDS: Nystatin Crm 15 GM Tube TOP SCH ×2 (11:51→21:07)
[2017-02-07] MEDS: Gabapentin 300 MG Cap PO SCH ×2 (11:51→21:02)
[2017-02-07] MEDS: Potassium Chloride 20 MEQ Tab.ER PO SCH (11:52)
[2017-02-07] MEDS: Carvedilol 25 MG Tab PO SCH ×2 (11:52→21:06)
[2017-02-07] MEDS: LORazepam 2 MG/ML MDV IVPUSH PRN (13:32)
[2017-02-07] MEDS: Warfarin 5 MG Tab PO SCH (15:44)
[2017-02-07] MEDS ORDERED: Ondansetron 4 MG Tab.DIS PO PRN (17:22)
[2017-02-07] MEDS: traZODone 50 MG Tab PO SCH (21:02)
[2017-02-07] MEDS: Doxazosin 4 MG Tab PO SCH (21:03)
[2017-02-07] MEDS: atorvaSTATin 10 MG Tab PO SCH (21:06)
[2017-02-08] MEDS: Melatonin 3 MG Tab PO PRN (00:19)
[2017-02-08] MEDS: Acetaminophen 325 MG Tab PO PRN (00:19)
[2017-02-08] MEDS: Sildenafil 20 MG Tab PO SCH ×3 (00:20→15:41)
[2017-02-08] MEDS: Albuterol/Ipratropium 3.0-0.5 MG/3 ML Neb Soln NEB SCH ×3 (07:11→14:41)
[2017-02-08] MEDS: Pantoprazole 40 MG Tab.CR PO SCH (07:27)
[2017-02-08] MEDS: Potassium Chloride 20 MEQ Tab.ER PO SCH (09:08)
[2017-02-08] MEDS: Carvedilol 25 MG Tab PO SCH ×2 (09:09→21:06)
[2017-02-08] MEDS: Cholecalciferol (Vitamin D3) 1,000 Unit Tab PO SCH ×2 (09:09→21:08)
[2017-02-08] MEDS: Aspirin 81 MG Tab.EC PO SCH (09:10)
[2017-02-08] MEDS: Gabapentin 300 MG Cap PO SCH ×2 (09:11→21:06)
[2017-02-08] MEDS: Multivitamins with Iron/Calcium/Folic Acid/Minerals Tab PO SCH (09:12)
[2017-02-08] MEDS: Insulin Detemir 100 Units/ML 3 ML Pen SUBCUT SCH ×2 (09:12→21:09)
[2017-02-08] MEDS: Nystatin Crm 15 GM Tube TOP SCH ×2 (09:14→21:07)
[2017-02-08] MEDS: Bumetanide 1 MG Tab PO SCH ×2 (10:16→21:05)
--- NOTE | 2017-02-08 13:42 | PCM.PN ---
- General Info Date of Service: 02/08/17 Subjective Update: He had chest pains this morning and enzymes and EKG was neg. for any acute changes. Functional Status: Reports: pain controlled - Review of Systems General: Reports: Weakness HEENT: Reports: no symptoms Pulmonary: Reports: shortness of breath Cardiovascular: Reports: Chest Pain Gastrointestinal: Reports: Nausea Skin: Reports: no symptoms, rash Psychiatric: Reports: no symptoms - Patient Data Vitals - most recent: Last Vital Signs Temp 97.8 F 02/08/17 10:13 Pulse 75 02/08/17 11:02 Resp 20 02/08/17 10:13 BP 114/60 02/08/17 10:13 Pulse Ox 93 L 02/08/17 11:02 Weight - most recent: 193 lb 9.6 oz I&O - last 24 hours: Intake & Output 02/07/17 02/08/17 02/08/17 22:59 06:59 14:59 Intake Total 290 100 460 Output Total 700 650 550 Balance -410 -550 -90 Lab Results last 24 hrs: Laboratory Results - last 24 hr 02/08/17 02/08/17 02/08/17 Range/Units 08:14 08:28 08:28 WBC 6.7 (4.5-11.0) K/uL RBC 2.66 L (4.30-5.90) M/uL Hgb 7.5 L (12.0-15.0) g/dL Hct 25.7 L (40.0-54.0) % MCV 97 (80-98) fL MCH 28 (27-31) pg MCHC 29 L (32-36) % Plt Count 114 L (150-400) K/uL Neut % (Auto) 82 H (36-66) % Lymph % (Auto) 9 L (24-44) % Kaufman % (Auto) 9 H (2-6) % Eos % (Auto) 1 L (2-4) % Baso % (Auto) 0 (0-1) % PT (9.5-12.0) sec INR (0.80-1.20) Puncture Site Rt brachial ABG pH 7.466 H (7.350-7.450) ABG pCO2 57.4 H (35.0-42.0) mmHg ABG pO2 115.0 H (75.0-100.0) mmHg ABG HCO3 40.9 H (22.0-26.0) mmol/L ABG Total CO2 38.7 H (23.0-27.0) mmol/L ABG O2 Saturation 99.1 H (95.0-98.0) % ABG O2 Content 10.4 L (15.0-23.0) %vol ABG Base Excess 15.4 mm/L ABG Hemoglobin 7.6 L (13.5-18.0) g/dL ABG Oxyhemoglobin 94.3 % ABG Carboxyhemoglobin 4.3 H (0.0-1.6) % ABG Methemoglobin 0.5 % Ky Test None O2 Delivery Device Bipap Oxygen Flow Rate L Sodium 137 L (140-148) mmol/L Potassium 4.3 (3.6-5.2) mmol/L Chloride 94 L (100-108) mmol/L Carbon Dioxide 41 H (21-32) mmol/L Anion Gap 6.3 (5.0-14.0) mmol/L BUN 64 H (7-18) mg/dL Creatinine 1.7 H (0.8-1.3) mg/dL Est Cr Clr Drug Dosing 41.22 mL/min Estimated GFR (MDRD) 40 L (>60) Glucose 101 (74-106) mg/dL Calcium 8.4 L (8.5-10.1) mg/dL Total Bilirubin 1.1 H (0.2-1.0) mg/dL AST 18 (15-37) U/L ALT 14 (12-78) U/L Alkaline Phosphatase 99 (46-116) U/L Creatine Kinase (39-308) U/L Troponin I (0.000-0.056) ng/mL Total Protein 7.0 (6.4-8.2) g/dL Albumin 2.5 L (3.4-5.0) g/dL Globulin 4.5 H (2.3-3.5) g/dL Albumin/Globulin Ratio 0.6 L (1.2-2.2) 02/08/17 02/08/17 Range/Units 10:45 10:45 WBC (4.5-11.0) K/uL RBC (4.30-5.90) M/uL Hgb (12.0-15.0) g/dL Hct (40.0-54.0) % MCV (80-98) fL MCH (27-31) pg MCHC (32-36) % Plt Count (150-400) K/uL Neut % (Auto) (36-66) % Lymph % (Auto) (24-44) % Kaufman % (Auto) (2-6) % Eos % (Auto) (2-4) % Baso % (Auto) (0-1) % PT 34.6 H (9.5-12.0) sec INR 3.15 H (0.80-1.20) Puncture Site ABG pH (7.350-7.450) ABG pCO2 (35.0-42.0) mmHg ABG pO2 (75.0-100.0) mmHg ABG HCO3 (22.0-26.0) mmol/L ABG Total CO2 (23.0-27.0) mmol/L ABG O2 Saturation (95.0-98.0) % ABG O2 Content (15.0-23.0) %vol ABG Base Excess mm/L ABG Hemoglobin (13.5-18.0) g/dL ABG Oxyhemoglobin % ABG Carboxyhemoglobin (0.0-1.6) % ABG Methemoglobin % Ky Test O2 Delivery Device Oxygen Flow Rate L Sodium (140-148) mmol/L Potassium (3.6-5.2) mmol/L Chloride (100-108) mmol/L Carbon Dioxide (21-32) mmol/L Anion Gap (5.0-14.0) mmol/L BUN (7-18) mg/dL Creatinine (0.8-1.3) mg/dL Est Cr Clr Drug Dosing mL/min Estimated GFR (MDRD) (>60) Glucose (74-106) mg/dL Calcium (8.5-10.1) mg/dL Total Bilirubin (0.2-1.0) mg/dL AST (15-37) U/L ALT (12-78) U/L Alkaline Phosphatase (46-116) U/L Creatine Kinase 22 L (39-308) U/L Troponin I 0.031 (0.000-0.056) ng/mL Total Protein (6.4-8.2) g/dL Albumin (3.4-5.0) g/dL Globulin (2.3-3.5) g/dL Albumin/Globulin Ratio (1.2-2.2) Jermaine Results last 24 hrs: Microbiology 02/04/17 20:15 Urine Culture - Final Urine, Catheterized YEAST Enterococcus Faecalis Med Orders - Current: Current Medications Acetaminophen (Tylenol) 650 mg PO Q4H PRN PRN Reason: pain Last Admin: 02/08/17 00:19 Dose: 650 mg Albuterol (Proventil Neb Soln) 2.5 mg NEB Q4H PRN PRN Reason: Dyspnea Last Admin: 02/05/17 10:28 Dose: 2.5 mg Albuterol/Ipratropium (Duoneb 3.0-0.5 Mg/3 Ml) 3 ml NEB QIDRT [facility] Last Admin: 02/08/17 11:01 Dose: 3 ml Aspirin (Halfprin) 81 mg PO DAILY [facility] Last Admin: 02/08/17 09:10 Dose: 81 mg Atorvastatin Calcium (Lipitor) 10 mg PO BEDTIME [facility] Last Admin: 02/07/17 21:06 Dose: 10 mg Bumetanide (Bumex) 3 mg PO BID [facility] Last Admin: 02/08/17 10:16 Dose: 3 mg Carvedilol (Coreg) 25 mg PO BID [facility] Last Admin: 02/08/17 09:09 Dose: 25 mg Cholecalciferol (Vitamin D3) 2,000 units PO BID [facility] Last Admin: 02/08/17 09:09 Dose: 2,000 units Dextrose (Glutose 15) 15 gm PO ASDIRECTED PRN PRN Reason: HYPOGLYCEMIA Dextrose/Water (Dextrose 50% In Water) 50 ml IVPUSH ASDIRECTED PRN PRN Reason: HYPOGLYCEMIA Doxazosin Mesylate (Cardura) 2 mg PO BEDTIME [facility] Last Admin: 02/07/17 21:03 Dose: 2 mg Gabapentin (Neurontin) 600 mg PO BID [facility] Last Admin: 02/08/17 09:11 Dose: 600 mg Glucagon (Glucagen) 1 mg IM ASDIRECTED PRN PRN Reason: HYPOGLYCEMIA Meropenem 1 gm/ Sodium (Chloride) 50 mls @ 100 mls/hr IV Q12H [facility] Last Admin: 02/08/17 10:23 Dose: 100 mls/hr Insulin Aspart (Novolog) 0 - 5 unit SUBCUT QID PRN; Protocol PRN Reason: LOW CORRECTIONAL DOSE Insulin Detemir (Levemir) 6 unit SUBCUT BID [facility] Stop: 02/13/17 21:00 Last Admin: 02/08/17 09:12 Dose: 6 units Lorazepam (Ativan) 0.5 mg PO Q2H PRN PRN Reason: Anxiety Last Admin: 02/07/17 00:11 Dose: 0.5 mg Lorazepam (Ativan) 0.5 mg IVPUSH Q2H PRN PRN Reason: Anxiety Last Admin: 02/07/17 13:32 Dose: 0.5 mg Melatonin (Melatonin) 3 mg PO BEDTIME PRN PRN Reason: Insomnia Last Admin: 02/08/17 00:19 Dose: 3 mg Multivitamins/Minerals (Thera M Plus) 1 tab PO DAILY [facility] Last Admin: 02/08/17 09:12 Dose: 1 tab Nystatin (Nystatin Crm) 0 gm TOP BID [facility] Last Admin: 02/08/17 09:14 Dose: 1 applic Ondansetron HCl (Zofran Odt) 4 mg PO Q6H PRN PRN Reason: Nausea/Vomiting Last Admin: 02/08/17 10:12 Dose: 4 mg Pantoprazole Sodium (Protonix) 40 mg PO ACBREAKFAST [facility] Last Admin: 02/08/17 07:27 Dose: 40 mg Potassium Chloride (Klor-Con M20) 20 meq PO DAILY [facility] Last Admin: 02/08/17 09:08 Dose: 20 meq Senna/Docusate Sodium (Senna Plus) 1 tab PO BID PRN PRN Reason: Constipation Last Admin: 02/05/17 20:57 Dose: 1 tab Sildenafil Citrate (Revatio) 20 mg PO Q8H [facility] Last Admin: 02/08/17 09:08 Dose: 20 mg Silver Sulfadiazine (Silvadene 1% Cream 50 Gm) 0 gm TOP BID PRN PRN Reason: Wound Care Trazodone HCl (Trazodone) 50 mg PO BEDTIME [facility] Last Admin: 02/07/17 21:02 Dose: 50 mg Warfarin Sodium (Coumadin) 10 mg PO MoTh@1300 [facility] Last Admin: 02/07/17 15:44 Dose: 10 mg Warfarin Sodium (Coumadin) 7.5 mg PO SuTuWeFrSa@1300 [facility] Last Admin: 02/06/17 14:17 Dose: 7.5 mg Discontinued Medications Dextrose/Water (Dextrose 50% In Water) 50 ml IVPUSH ONETIME ONE Stop: 02/06/17 06:15 Last Admin: 02/06/17 06:21 Dose: 50 ml Dextrose/Water (Dextrose 50% In Water) Confirm Administered Dose 50 ml .ROUTE .STK-MED ONE Stop: 02/06/17 06:17 Last Admin: 02/06/17 06:21 Dose: Not Given Dextrose/Water (Dextrose 50% In Water) 50 ml IV ONETIME ONE Stop: 02/06/17 07:46 Last Admin: 02/06/17 09:46 Dose: 50 ml Gentamicin Sulfate 400 mg/ (Sodium Chloride) 160 mls @ 106 mls/hr IV Q36H [facility] Stop: 02/06/17 21:31 Last Admin: 02/06/17 20:39 Dose: 106 mls/hr Insulin Aspart (Novolog) 12 unit SUBCUT TIDMEALS [facility] Last Admin: 02/07/17 08:40 Dose: Not Given Insulin Detemir (Levemir) 15 unit SUBCUT BID [facility] Last Admin: 02/07/17 09:23 Dose: Not Given Non-Formulary Medication (Darbepoetin Diego [Aranesp]) 200 mcg SUBCUT Q14D [facility] - Exam General: alert, oriented HEENT: Pupils equal, Pupils reactive, EOMI, Mucous membr. moist/pink Neck: supple Lungs: Clear to auscultation, Normal respiratory effort Cardiovascular: Regular Rate, Regular Rhythm Abdomen: bowel sounds present, soft, no tenderness, no distension Back Exam: normal inspection, full range of motion Peripheral Pulses: 1+: radial (L), radial (R) Skin: rash Neurological: no new focal deficit Psy/Mental Status: alert, normal affect, normal mood - Problem List Review Problem List Initiated/Reviewed/Updated: Yes - My Orders Last 24 Hours: My Active Orders 02/07/17 17:22 Ondansetron [Zofran ODT] 4 mg PO Q6H PRN 02/07/17 21:00 Insulin Detemir [Levemir] 6 unit SUBCUT BID 02/08/17 10:23 EKG 12 Lead [EK] Routine 02/08/17 13:34 Transfuse Red Blood Cells [COMM] Routine 02/08/17 16:30 GLUCOSE POC LAB TO COLLECT [POC] QIDACANDBED 02/08/17 21:00 GLUCOSE POC LAB TO COLLECT [POC] QIDACANDBED 02/09/17 07:30 GLUCOSE POC LAB TO COLLECT [POC] QIDACANDBED 02/09/17 11:30 GLUCOSE POC LAB TO COLLECT [POC] QIDACANDBED 02/09/17 16:30 GLUCOSE POC LAB TO COLLECT [POC] QIDACANDBED 02/09/17 21:00 GLUCOSE POC LAB TO COLLECT [POC] QIDACANDBED 02/10/17 07:30 GLUCOSE POC LAB TO COLLECT [POC] QIDACANDBED 02/10/17 11:30 GLUCOSE POC LAB TO COLLECT [POC] QIDACANDBED 02/10/17 16:30 GLUCOSE POC LAB TO COLLECT [POC] QIDACANDBED 02/10/17 21:00 GLUCOSE POC LAB TO COLLECT [POC] QIDACANDBED 02/11/17 07:30 GLUCOSE POC LAB TO COLLECT [POC] QIDACANDBED 02/11/17 11:30 GLUCOSE POC LAB TO COLLECT [POC] QIDACANDBED 02/11/17 16:30 GLUCOSE POC LAB TO COLLECT [POC] QIDACANDBED 02/11/17 21:00 GLUCOSE POC LAB TO COLLECT [POC] QIDACANDBED 02/12/17 07:30 GLUCOSE POC LAB TO COLLECT [POC] QIDACANDBED 02/12/17 11:30 GLUCOSE POC LAB TO COLLECT [POC] QIDACANDBED 02/12/17 16:30 GLUCOSE POC LAB TO COLLECT [POC] QIDACANDBED 02/12/17 21:00 GLUCOSE POC LAB TO COLLECT [POC] QIDACANDBED - Plan Plan:: #1. Right heart failure with pleural fluid. This is a chronic problem and improved with the present medication. #2. 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 This is the cause of his anemia and has been needing blood transfusions on a regular basis. His hemoglobin is 7.5 He will be getting his Aranesp through home care at home as a hospital doesn't give it while hospitalized. Will T & C and transfuse 2 units of pac cells. #3. Diabetes Type 1. I will give insulin per sliding scale. He was hypoglycemia again this morning with a blood sugar of 40. I will change his diabetic medication. #4. Peripheral vascular disease. He has no feeling in his feet and then with the ulcers in his right foot. #5. Decubitus ulcer. We'll treat this while in hospital and he should stay off the back so we get better healing. Treated and redressed. #6. Chronic renal failure. We'll follow kidney functions well in the hospital these vary according to his fluid balance. His creatinine today is 1.5 with a BUN of 61 which is the same as it was yesterday. #7. Hyperlipidemia. #8. Gout. This condition is chronic #9. Macular degeneration. This is due to diabetes and is being followed by ophthalmology. #10. Diabetic foot ulcers. Will dress daily. #11. Artificial heart valve. He is coumadinized and his INR will be followed. #12. Respiratory failure. This is chronic.
[2017-02-08] MEDS: Warfarin 2.5 MG Tab PO SCH (14:37)
[2017-02-08] MEDS: Insulin Aspart 100 Units/ML 3 ML Pen SUBCUT PRN ×2 (17:10→21:10)
[2017-02-08] MEDS: Ampicillin 2 GM in Sodium Chloride 0.9% 100 ML IV SCH (19:29)
[2017-02-08] MEDS: atorvaSTATin 10 MG Tab PO SCH (21:07)
[2017-02-08] MEDS: traZODone 50 MG Tab PO SCH (21:08)
[2017-02-08] MEDS: Doxazosin 4 MG Tab PO SCH (21:08)
[2017-02-09] MEDS: Albuterol/Ipratropium 3.0-0.5 MG/3 ML Neb Soln NEB SCH ×5 (00:40→21:08)
[2017-02-09] MEDS: Ampicillin 2 GM in Sodium Chloride 0.9% 100 ML IV SCH ×4 (00:40→17:02)
[2017-02-09] MEDS: Sildenafil 20 MG Tab PO SCH ×3 (00:41→16:27)
[2017-02-09] MEDS: Pantoprazole 40 MG Tab.CR PO SCH (08:51)
[2017-02-09] MEDS: Bumetanide 1 MG Tab PO SCH ×2 (08:51→20:59)
[2017-02-09] MEDS: Potassium Chloride 20 MEQ Tab.ER PO SCH (08:52)
[2017-02-09] MEDS: Gabapentin 300 MG Cap PO SCH ×2 (08:52→21:00)
[2017-02-09] MEDS: Aspirin 81 MG Tab.EC PO SCH (08:52)
[2017-02-09] MEDS: Nystatin Crm 15 GM Tube TOP SCH ×2 (08:52→21:01)
[2017-02-09] MEDS: methylPREDNISolone Sodium Succinate 40 MG/1 ML SDV IVPUSH SCH ×2 (08:53→16:51)
[2017-02-09] MEDS: Multivitamins with Iron/Calcium/Folic Acid/Minerals Tab PO SCH (08:53)
[2017-02-09] MEDS: Carvedilol 25 MG Tab PO SCH ×2 (08:55→21:02)
[2017-02-09] MEDS: Cholecalciferol (Vitamin D3) 1,000 Unit Tab PO SCH ×2 (08:58→21:00)
[2017-02-09] MEDS: Insulin Detemir 100 Units/ML 3 ML Pen SUBCUT SCH ×2 (09:50→21:03)
--- NOTE | 2017-02-09 10:57 | PCM.PN ---
- General Info Date of Service: 02/09/17 Functional Status: Reports: pain controlled, tolerating diet - Review of Systems General: Reports: Weakness. Denies: Fever, Chills Pulmonary: Reports: shortness of breath. Denies: cough, sputum, hemoptysis, wheezing Cardiovascular: Reports: Dyspnea on Exertion. Denies: Chest Pain, Palpitations , Orthopnea, PND, Edema, Lightheadedness Gastrointestinal: Reports: No symptoms Systems Review Comment:: This patient is a 71-year-old gentleman, patient of Dr. Griffin's. Dr. Griffin is out of town and has asked me to assume care of this patient. He is very complicated and has multiple underlying medical problems. Unfortunately he has reached a point with his respiratory disease that he is very end-stage and has had acute on chronic Hypoxic and hypercapnic respiratory failure. During his hospitalization is required regular use of noninvasive ventilation, otherwise his CO2 retention caused significant lethargy and further respiratory compromise. He is anemic and blood has been ordered for him, because of antibodies it's not yet available. We did have a discussion today concerning the patient's wishes for CODE STATUS, despite the fact that he realizes he is end-stage as far as his respiratory disease he wants to remain a full code. If he were to require intubation and mechanical ventilation he would like to give it a few days to see if he improves, if not then he would like to be taken off the ventilator and kept comfortable. Urine has grown out enterococcus, antibiotics have been changed to ampicillin IV. Diabetes control has been better with decreased doses of insolent he's not had this much hypoglycemia. - Patient Data Vitals - most recent: Last Vital Signs Temp 97.9 F 02/09/17 06:54 Pulse 78 02/09/17 08:55 Resp 18 02/09/17 06:54 BP 127/68 02/09/17 08:55 Pulse Ox 84 L 02/09/17 07:48 Weight - most recent: 189 lb I&O - last 24 hours: Intake & Output 02/08/17 02/09/17 02/09/17 22:59 06:59 14:59 Intake Total 360 200 360 Output Total 250 2 Balance 110 198 360 Lab Results last 24 hrs: Laboratory Results - last 24 hr 04/21/17 04/21/17 04/21/17 Range/Units 08:28 10:45 10:45 WBC (4.5-11.0) K/uL RBC (4.30-5.90) M/uL Hgb (12.0-15.0) g/dL Hct (40.0-54.0) % MCV (80-98) fL MCH (27-31) pg MCHC (32-36) % Plt Count (150-400) K/uL Neut % (Auto) (36-66) % Lymph % (Auto) (24-44) % Taylor % (Auto) (2-6) % Eos % (Auto) (2-4) % Baso % (Auto) (0-1) % PT 34.6 H (9.5-12.0) sec INR 3.15 H (0.80-1.20) Puncture Site ABG pH (7.350-7.450) ABG pCO2 (35.0-42.0) mmHg ABG pO2 (75.0-100.0) mmHg ABG HCO3 (22.0-26.0) mmol/L ABG Total CO2 (23.0-27.0) mmol/L ABG O2 Saturation (95.0-98.0) % ABG O2 Content (15.0-23.0) %vol ABG Base Excess mm/L ABG Hemoglobin (13.5-18.0) g/dL ABG Oxyhemoglobin % ABG Carboxyhemoglobin (0.0-1.6) % ABG Methemoglobin % Ky Test O2 Delivery Device Oxygen Flow Rate L Sodium 137 L (140-148) mmol/L Potassium 4.3 (3.6-5.2) mmol/L Chloride 94 L (100-108) mmol/L Carbon Dioxide 41 H (21-32) mmol/L Anion Gap 6.3 (5.0-14.0) mmol/L BUN 64 H (7-18) mg/dL Creatinine 1.7 H (0.8-1.3) mg/dL Est Cr Clr Drug Dosing 41.22 mL/min Estimated GFR (MDRD) 40 L (>60) Glucose 101 (74-106) mg/dL Calcium 8.4 L (8.5-10.1) mg/dL Total Bilirubin 1.1 H (0.2-1.0) mg/dL AST 18 (15-37) U/L ALT 14 (12-78) U/L Alkaline Phosphatase 99 (46-116) U/L Creatine Kinase 22 L (39-308) U/L Troponin I 0.031 (0.000-0.056) ng/mL Total Protein 7.0 (6.4-8.2) g/dL Albumin 2.5 L (3.4-5.0) g/dL Globulin 4.5 H (2.3-3.5) g/dL Albumin/Globulin Ratio 0.6 L (1.2-2.2) Blood Type Gel Antibody Screen Crossmatch 02/08/17 02/08/17 02/09/17 Range/Units 13:58 17:07 05:00 WBC 5.9 (4.5-11.0) K/uL RBC 2.74 L (4.30-5.90) M/uL Hgb 7.6 L (12.0-15.0) g/dL Hct 26.7 L (40.0-54.0) % MCV 97 (80-98) fL MCH 28 (27-31) pg MCHC 29 L (32-36) % Plt Count 112 L (150-400) K/uL Neut % (Auto) 75 H (36-66) % Lymph % (Auto) 13 L (24-44) % Taylor % (Auto) 10 H (2-6) % Eos % (Auto) 2 (2-4) % Baso % (Auto) 0 (0-1) % PT (9.5-12.0) sec INR (0.80-1.20) Puncture Site Rt brachial ABG pH 7.364 (7.350-7.450) ABG pCO2 73.9 H* (35.0-42.0) mmHg ABG pO2 71.7 L (75.0-100.0) mmHg ABG HCO3 41.1 H (22.0-26.0) mmol/L ABG Total CO2 39.6 H (23.0-27.0) mmol/L ABG O2 Saturation 92.8 L (95.0-98.0) % ABG O2 Content 9.8 L (15.0-23.0) %vol ABG Base Excess 14.2 mm/L ABG Hemoglobin 7.6 L (13.5-18.0) g/dL ABG Oxyhemoglobin 90.0 % ABG Carboxyhemoglobin 2.6 H (0.0-1.6) % ABG Methemoglobin 0.4 % Ky Test Passed O2 Delivery Device Nasal cannula Oxygen Flow Rate L Sodium (140-148) mmol/L Potassium (3.6-5.2) mmol/L Chloride (100-108) mmol/L Carbon Dioxide (21-32) mmol/L Anion Gap (5.0-14.0) mmol/L BUN (7-18) mg/dL Creatinine (0.8-1.3) mg/dL Est Cr Clr Drug Dosing mL/min Estimated GFR (MDRD) (>60) Glucose (74-106) mg/dL Calcium (8.5-10.1) mg/dL Total Bilirubin (0.2-1.0) mg/dL AST (15-37) U/L ALT (12-78) U/L Alkaline Phosphatase (46-116) U/L Creatine Kinase (39-308) U/L Troponin I (0.000-0.056) ng/mL Total Protein (6.4-8.2) g/dL Albumin (3.4-5.0) g/dL Globulin (2.3-3.5) g/dL Albumin/Globulin Ratio (1.2-2.2) Blood Type A POSITIVE Gel Antibody Screen Negative Crossmatch See Detail 02/09/17 02/09/17 02/09/17 Range/Units 05:00 05:00 05:45 WBC (4.5-11.0) K/uL RBC (4.30-5.90) M/uL Hgb (12.0-15.0) g/dL Hct (40.0-54.0) % MCV (80-98) fL MCH (27-31) pg MCHC (32-36) % Plt Count (150-400) K/uL Neut % (Auto) (36-66) % Lymph % (Auto) (24-44) % Taylor % (Auto) (2-6) % Eos % (Auto) (2-4) % Baso % (Auto) (0-1) % PT 42.8 H (9.5-12.0) sec INR 3.87 H (0.80-1.20) Puncture Site Rt brachial ABG pH 7.474 H (7.350-7.450) ABG pCO2 55.1 H (35.0-42.0) mmHg ABG pO2 151.0 H (75.0-100.0) mmHg ABG HCO3 40.0 H (22.0-26.0) mmol/L ABG Total CO2 37.8 H (23.0-27.0) mmol/L ABG O2 Saturation 99.9 H (95.0-98.0) % ABG O2 Content 10.3 L (15.0-23.0) %vol ABG Base Excess 14.8 mm/L ABG Hemoglobin 7.6 L (13.5-18.0) g/dL ABG Oxyhemoglobin 93.0 % ABG Carboxyhemoglobin 6.4 H (0.0-1.6) % ABG Methemoglobin 0.5 % Ky Test N/a O2 Delivery Device Bipap Oxygen Flow Rate L Sodium 139 L (140-148) mmol/L Potassium 4.4 (3.6-5.2) mmol/L Chloride 96 L (100-108) mmol/L Carbon Dioxide 42 H (21-32) mmol/L Anion Gap 5.4 (5.0-14.0) mmol/L BUN 71 H (7-18) mg/dL Creatinine 2.1 H (0.8-1.3) mg/dL Est Cr Clr Drug Dosing 33.37 mL/min Estimated GFR (MDRD) 31 L (>60) Glucose 140 H (74-106) mg/dL Calcium 8.2 L (8.5-10.1) mg/dL Total Bilirubin (0.2-1.0) mg/dL AST (15-37) U/L ALT (12-78) U/L Alkaline Phosphatase (46-116) U/L Creatine Kinase (39-308) U/L Troponin I (0.000-0.056) ng/mL Total Protein (6.4-8.2) g/dL Albumin (3.4-5.0) g/dL Globulin (2.3-3.5) g/dL Albumin/Globulin Ratio (1.2-2.2) Blood Type Gel Antibody Screen Crossmatch Jermaine Results last 24 hrs: Microbiology 02/04/17 20:15 Urine Culture - Final Urine, Catheterized YEAST Enterococcus Faecalis Med Orders - Current: Current Medications Acetaminophen (Tylenol) 650 mg PO Q4H PRN PRN Reason: pain Last Admin: 02/08/17 00:19 Dose: 650 mg Albuterol (Proventil Neb Soln) 2.5 mg NEB Q4H PRN PRN Reason: Dyspnea Last Admin: 02/05/17 10:28 Dose: 2.5 mg Albuterol/Ipratropium (Duoneb 3.0-0.5 Mg/3 Ml) 3 ml NEB QIDRT [facility] Last Admin: 02/09/17 07:46 Dose: 3 ml Aspirin (Halfprin) 81 mg PO DAILY [facility] Last Admin: 02/09/17 08:52 Dose: 81 mg Atorvastatin Calcium (Lipitor) 10 mg PO BEDTIME [facility] Last Admin: 02/08/17 21:07 Dose: 10 mg Bumetanide (Bumex) 3 mg PO BID [facility] Last Admin: 02/09/17 08:51 Dose: 3 mg Carvedilol (Coreg) 25 mg PO BID [facility] Last Admin: 02/09/17 08:55 Dose: 25 mg Cholecalciferol (Vitamin D3) 2,000 units PO BID [facility] Last Admin: 02/09/17 08:58 Dose: 2,000 units Dextrose (Glutose 15) 15 gm PO ASDIRECTED PRN PRN Reason: HYPOGLYCEMIA Dextrose/Water (Dextrose 50% In Water) 50 ml IVPUSH ASDIRECTED PRN PRN Reason: HYPOGLYCEMIA Doxazosin Mesylate (Cardura) 2 mg PO BEDTIME [facility] Last Admin: 02/08/17 21:08 Dose: 2 mg Gabapentin (Neurontin) 600 mg PO BID [facility] Last Admin: 02/09/17 08:52 Dose: 600 mg Glucagon (Glucagen) 1 mg IM ASDIRECTED PRN PRN Reason: HYPOGLYCEMIA Ampicillin Sodium 2 gm/ Sodium (Chloride) 100 mls @ 200 mls/hr IV Q6H [facility] Last Admin: 02/09/17 05:23 Dose: 200 mls/hr Insulin Aspart (Novolog) 0 - 5 unit SUBCUT QID PRN; Protocol PRN Reason: LOW CORRECTIONAL DOSE Last Admin: 02/08/17 21:10 Dose: 2 units Insulin Detemir (Levemir) 6 unit SUBCUT BID [facility] Stop: 02/13/17 21:00 Last Admin: 02/09/17 09:50 Dose: 6 units Lorazepam (Ativan) 0.5 mg PO Q2H PRN PRN Reason: Anxiety Last Admin: 02/07/17 00:11 Dose: 0.5 mg Lorazepam (Ativan) 0.5 mg IVPUSH Q2H PRN PRN Reason: Anxiety Last Admin: 02/07/17 13:32 Dose: 0.5 mg Melatonin (Melatonin) 3 mg PO BEDTIME PRN PRN Reason: Insomnia Last Admin: 02/08/17 00:19 Dose: 3 mg Methylprednisolone Sodium Succinate (Solu-Medrol) 40 mg IVPUSH Q8H [facility] Last Admin: 02/09/17 08:53 Dose: 40 mg Multivitamins/Minerals (Thera M Plus) 1 tab PO DAILY [facility] Last Admin: 02/09/17 08:53 Dose: 1 tab Nystatin (Nystatin Crm) 0 gm TOP BID [facility] Last Admin: 02/09/17 08:52 Dose: 1 applic Ondansetron HCl (Zofran Odt) 4 mg PO Q6H PRN PRN Reason: Nausea/Vomiting Last Admin: 02/08/17 10:12 Dose: 4 mg Pantoprazole Sodium (Protonix) 40 mg PO ACBREAKFAST [facility] Last Admin: 02/09/17 08:51 Dose: 40 mg Potassium Chloride (Klor-Con M20) 20 meq PO DAILY [facility] Last Admin: 02/09/17 08:52 Dose: 20 meq Senna/Docusate Sodium (Senna Plus) 1 tab PO BID PRN PRN Reason: Constipation Last Admin: 02/05/17 20:57 Dose: 1 tab Sildenafil Citrate (Revatio) 20 mg PO Q8H [facility] Last Admin: 02/09/17 08:51 Dose: 20 mg Silver Sulfadiazine (Silvadene 1% Cream 50 Gm) 0 gm TOP BID PRN PRN Reason: Wound Care Trazodone HCl (Trazodone) 50 mg PO BEDTIME [facility] Last Admin: 02/08/17 21:08 Dose: 50 mg Discontinued Medications Dextrose/Water (Dextrose 50% In Water) 50 ml IVPUSH ONETIME ONE Stop: 02/06/17 06:15 Last Admin: 02/06/17 06:21 Dose: 50 ml Dextrose/Water (Dextrose 50% In Water) Confirm Administered Dose 50 ml .ROUTE .STK-MED ONE Stop: 02/06/17 06:17 Last Admin: 02/06/17 06:21 Dose: Not Given Dextrose/Water (Dextrose 50% In Water) 50 ml IV ONETIME ONE Stop: 02/06/17 07:46 Last Admin: 02/06/17 09:46 Dose: 50 ml Gentamicin Sulfate 400 mg/ (Sodium Chloride) 160 mls @ 106 mls/hr IV Q36H [facility] Stop: 02/06/17 21:31 Last Admin: 02/06/17 20:39 Dose: 106 mls/hr Meropenem 1 gm/ Sodium (Chloride) 50 mls @ 100 mls/hr IV Q12H [facility] Last Admin: 02/08/17 10:23 Dose: 100 mls/hr Insulin Aspart (Novolog) 12 unit SUBCUT TIDMEALS [facility] Last Admin: 02/07/17 08:40 Dose: Not Given Insulin Detemir (Levemir) 15 unit SUBCUT BID [facility] Last Admin: 02/07/17 09:23 Dose: Not Given Non-Formulary Medication (Darbepoetin Diego [Aranesp]) 200 mcg SUBCUT Q14D [facility] Warfarin Sodium (Coumadin) 10 mg PO MoTh@1300 [facility] Last Admin: 02/07/17 15:44 Dose: 10 mg Warfarin Sodium (Coumadin) 7.5 mg PO SuTuWeFrSa@1300 [facility] Last Admin: 02/08/17 14:37 Dose: 7.5 mg - Exam Quality Assessment: supplemental oxygen, DVT prophylaxis General: alert, oriented, mild distress Lungs: Decreased breath sounds, Rhonchi. No: Crackles, Rales, Rub, Stridor, Wheezing Cardiovascular: Regular Rate, Regular Rhythm, No Murmurs Abdomen: bowel sounds present, soft, no tenderness, no distension Extremities: no edema Skin: other (Decubitus ulcer which was present on admission as well as diabetic foot ulcer) - Problem List Review Problem List Initiated/Reviewed/Updated: Yes - My Orders Last 24 Hours: My Active Orders 02/08/17 18:00 Ampicillin 2 gm Sodium Chloride 0.9% [Normal Saline] 100 ml IV Q6H 02/09/17 09:00 methylPREDNISolone Sod Succ [Solu-MEDROL] 40 mg IVPUSH Q8H 02/10/17 05:00 BASIC METABOLIC PANEL,BMP [CHEM] Timed CBC WITH AUTO DIFF [HEME] Timed INR,PT,PROTHROMBIN TIME [COAG] Timed - Plan Plan:: ASSESSMENT AND PLAN ACUTE ON CHRONIC RESPIRATORY FAILURE WITH HYPOXIA AND HYPERCAPNIA-he is really reached end-stage of his disease, unable to go more than short periods of time without use of noninvasive ventilation. He wishes to remain a full code and would want to try intubation, to be removed from the ventilator if he was not improving. Given that he's had previous admissions for respiratory failure and has required regular use of noninvasive ventilation during this hospitalization we'll plan to proceed with discharge to home with home ventilation. -Continue use of BiPAP as needed -Arrange for home ventilation -Supplemental oxygen as needed -Continue nebulizer therapy -Try low Solu-Medrol 40 mg IV every 8 hours COPD WITH COR PULMONALE -Continue management as above -Continue diuretics and sildenafil URINARY TRACT INFECTION-chronic indwelling Verma catheter -Urine culture growing enterococcus -Ampicillin 2 g IV every 6 hours, plan transitioned to oral antibiotic therapy tomorrow DECUBITUS ULCER-present on admission -Continue current therapy and management DIABETES MELLITUS TYPE 1-with decreased doses of insulins he's had less hypoglycemia -4 times a day glucometers -Continue current insulins management CHRONIC KIDNEY DISEASE STAGE III -Continue to monitor renal function and urine output closely 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 current INR is supratherapeutic -Hold warfarin today -Repeat INR in a.m. MONOCLONAL GAMMOPATHY OF UNDETERMINED SIGNIFICANCE-with associated anemia -Blood has been ordered and is pending, delay secondary to antibiotics MAINTENANCE ISSUES -DVT prophylaxis; current therapy with warfarin should provide adequate DVT prophylaxis -GI prophylaxis; continue PPI therapy -Verma catheter; chronic indwelling -Nutrition; consistent carb diet -Nicotine dependence; not required CODE STATUS-FULL CODE ADMISSION STATUS-patient will be admitted to inpatient status, expect at least a 2 night hospital stay for evaluation and management of problems as outlined above. At the time of this admission I do not reasonably expected evaluation and management of this problem will require more than a 96 hour hospital stay. DISPOSITION-anticipate discharge to home after the hospital stay. PRIMARY CARE PROVIDER-Dr. Leoncio Griffin
[2017-02-09] MEDS: Insulin Aspart 100 Units/ML 3 ML Pen SUBCUT PRN ×2 (12:19→21:04)
[2017-02-09] MEDS ORDERED: Bumetanide 1 MG/4 ML MDV IVPUSH ONE (16:24)
[2017-02-09] MEDS: Acetaminophen 325 MG Tab PO PRN (16:38)
[2017-02-09] MEDS: Albuterol 0.083% 2.5 MG/3 ML Neb Soln NEB PRN (18:37)
[2017-02-09] MEDS ORDERED: Ibuprofen 600 MG Tab PO PRN (19:14)
--- NOTE | 2017-02-09 19:16 | PCM.SN ---
- Free Text/Narrative Note: time; 19:14 call from 2 [facility]; Mr. Peacock has complaints of generalized body ache. vs; temp 37.8 a; pain p. order Motrin 600mg po every 6 hours as needed for pain or fever. continue present plan of care.
[2017-02-09] MEDS: traZODone 50 MG Tab PO SCH (21:00)
[2017-02-09] MEDS: atorvaSTATin 10 MG Tab PO SCH (21:01)
[2017-02-09] MEDS: Doxazosin 4 MG Tab PO SCH (21:02)
[2017-02-09] MEDS: LORazepam 0.5 MG Tab PO PRN (21:08)
[2017-02-09] MEDS: Melatonin 3 MG Tab PO PRN (21:08)
[2017-02-10] MEDS: Ampicillin 2 GM in Sodium Chloride 0.9% 100 ML IV SCH ×2 (00:03→05:37)
[2017-02-10] MEDS: Sildenafil 20 MG Tab PO SCH ×4 (00:03→23:55)
[2017-02-10] MEDS: methylPREDNISolone Sodium Succinate 40 MG/1 ML SDV IVPUSH SCH (00:03)
[2017-02-10] MEDS: Pantoprazole 40 MG Tab.CR PO SCH (07:00)
[2017-02-10] MEDS: Albuterol/Ipratropium 3.0-0.5 MG/3 ML Neb Soln NEB SCH ×4 (07:30→22:15)
[2017-02-10] MEDS: Nystatin Crm 15 GM Tube TOP SCH ×2 (08:13→21:54)
[2017-02-10] MEDS: Carvedilol 25 MG Tab PO SCH ×2 (08:25→21:54)
[2017-02-10] MEDS: Aspirin 81 MG Tab.EC PO SCH (08:26)
[2017-02-10] MEDS: Gabapentin 300 MG Cap PO SCH ×2 (08:26→21:54)
[2017-02-10] MEDS: Cholecalciferol (Vitamin D3) 1,000 Unit Tab PO SCH ×2 (08:28→21:59)
[2017-02-10] MEDS: Multivitamins with Iron/Calcium/Folic Acid/Minerals Tab PO SCH (08:28)
[2017-02-10] MEDS: Potassium Chloride 20 MEQ Tab.ER PO SCH (08:29)
[2017-02-10] MEDS: Insulin Detemir 100 Units/ML 3 ML Pen SUBCUT SCH ×2 (08:33→22:14)
[2017-02-10] MEDS: Insulin Aspart 100 Units/ML 3 ML Pen SUBCUT PRN ×2 (08:34→22:14)
[2017-02-10] MEDS: Sodium Chloride 0.9% 1,000 ML IV SCH ×2 (08:39→18:23)
[2017-02-10] MEDS ORDERED: Insulin Aspart 100 Units/ML 3 ML Pen SUBCUT ONE ×3 (11:30→21:50)
--- NOTE | 2017-02-10 11:41 | PCM.PN ---
- General Info Date of Service: 02/10/17 Functional Status: Reports: pain controlled, tolerating diet - Review of Systems General: Reports: Weakness. Denies: Fever, Chills Pulmonary: Reports: shortness of breath, cough. Denies: pleuritic chest pain, sputum, hemoptysis, wheezing Cardiovascular: Reports: Dyspnea on Exertion, Edema. Denies: Chest Pain, Palpitations, Orthopnea, PND Gastrointestinal: Reports: No symptoms Systems Review Comment:: This patient remains very compromised from a respiratory standpoint, continues to require use of noninvasive ventilation on an almost continuous basis to maintain adequate oxygenation and prevent significant hypercapnia. He did receive transfusion yesterday. He only received a small portion of the second unit because of a transfusion reaction. Unfortunately his renal function has deteriorated since yesterday with an increase in creatinine as well as potassium level. He has been somewhat resistant to the use of the noninvasive ventilation, I did explain to them today that given his severe lung disease and current situation if he wants to pursue ongoing aggressive care he needs to accept the fact that he will be on the BiPAP and home ventilator after discharge his significant amount of each day. - Patient Data Vitals - most recent: Last Vital Signs Temp 97.9 F 02/10/17 07:00 Pulse 73 02/10/17 10:51 Resp 20 02/10/17 07:00 BP 114/65 02/10/17 08:25 Pulse Ox 95 02/10/17 10:51 Weight - most recent: 189 lb I&O - last 24 hours: Intake & Output 02/09/17 02/10/17 02/10/17 22:59 06:59 14:59 Intake Total 503 260 840 Output Total 475 450 Balance 28 -190 840 Lab Results last 24 hrs: Laboratory Results - last 24 hr 02/08/17 02/10/17 02/10/17 Range/Units 13:58 05:42 05:42 WBC 4.8 (4.5-11.0) K/uL RBC 3.02 L (4.30-5.90) M/uL Hgb 8.6 L (12.0-15.0) g/dL Hct 28.7 L (40.0-54.0) % MCV 95 (80-98) fL MCH 29 (27-31) pg MCHC 30 L (32-36) % Plt Count 100 L (150-400) K/uL Neut % (Auto) 91 H (36-66) % Lymph % (Auto) 7 L (24-44) % [place] % (Auto) 2 (2-6) % Eos % (Auto) 0 L (2-4) % Baso % (Auto) 0 (0-1) % PT 53.2 H (9.5-12.0) sec INR 4.78 H* (0.80-1.20) Sodium (140-148) mmol/L Potassium (3.6-5.2) mmol/L Chloride (100-108) mmol/L Carbon Dioxide (21-32) mmol/L Anion Gap (5.0-14.0) mmol/L BUN (7-18) mg/dL Creatinine (0.8-1.3) mg/dL Est Cr Clr Drug Dosing mL/min Estimated GFR (MDRD) (>60) Glucose (74-106) mg/dL Calcium (8.5-10.1) mg/dL Blood Type A POSITIVE Gel Antibody Screen Negative Crossmatch See Detail 02/10/17 Range/Units 05:42 WBC (4.5-11.0) K/uL RBC (4.30-5.90) M/uL Hgb (12.0-15.0) g/dL Hct (40.0-54.0) % MCV (80-98) fL MCH (27-31) pg MCHC (32-36) % Plt Count (150-400) K/uL Neut % (Auto) (36-66) % Lymph % (Auto) (24-44) % [place] % (Auto) (2-6) % Eos % (Auto) (2-4) % Baso % (Auto) (0-1) % PT (9.5-12.0) sec INR (0.80-1.20) Sodium 136 L (140-148) mmol/L Potassium 5.4 H (3.6-5.2) mmol/L Chloride 95 L (100-108) mmol/L Carbon Dioxide 39 H (21-32) mmol/L Anion Gap 7.4 (5.0-14.0) mmol/L BUN 78 H* (7-18) mg/dL Creatinine 2.5 H (0.8-1.3) mg/dL Est Cr Clr Drug Dosing 28.03 mL/min Estimated GFR (MDRD) 25 L (>60) Glucose 288 H (74-106) mg/dL Calcium 8.1 L (8.5-10.1) mg/dL Blood Type Gel Antibody Screen Crossmatch Med Orders - Current: Current Medications Acetaminophen (Tylenol) 650 mg PO Q4H PRN PRN Reason: pain Last Admin: 02/09/17 16:38 Dose: 650 mg Albuterol (Proventil Neb Soln) 2.5 mg NEB Q4H PRN PRN Reason: Dyspnea Last Admin: 02/09/17 18:37 Dose: 2.5 mg Albuterol/Ipratropium (Duoneb 3.0-0.5 Mg/3 Ml) 3 ml NEB QIDRT [facility] Last Admin: 02/10/17 10:51 Dose: 3 ml Aspirin (Halfprin) 81 mg PO DAILY [facility] Last Admin: 02/10/17 08:26 Dose: 81 mg Atorvastatin Calcium (Lipitor) 10 mg PO BEDTIME [facility] Last Admin: 02/09/17 21:01 Dose: 10 mg Carvedilol (Coreg) 25 mg PO BID [facility] Last Admin: 02/10/17 08:25 Dose: 25 mg Cholecalciferol (Vitamin D3) 2,000 units PO BID [facility] Last Admin: 02/10/17 08:28 Dose: 2,000 units Dextrose (Glutose 15) 15 gm PO ASDIRECTED PRN PRN Reason: HYPOGLYCEMIA Dextrose/Water (Dextrose 50% In Water) 50 ml IVPUSH ASDIRECTED PRN PRN Reason: HYPOGLYCEMIA Doxazosin Mesylate (Cardura) 2 mg PO BEDTIME [facility] Last Admin: 02/09/17 21:02 Dose: 2 mg Gabapentin (Neurontin) 600 mg PO BID [facility] Last Admin: 02/10/17 08:26 Dose: 600 mg Glucagon (Glucagen) 1 mg IM ASDIRECTED PRN PRN Reason: HYPOGLYCEMIA Ampicillin Sodium 2 gm/ Sodium (Chloride) 100 mls @ 200 mls/hr IV Q6H [facility] Last Admin: 02/10/17 05:37 Dose: 200 mls/hr Sodium Chloride (Normal Saline) 1,000 mls @ 100 mls/hr IV ASDIRECTED [facility] Last Admin: 02/10/17 08:39 Dose: 100 mls/hr Insulin Aspart (Novolog) 0 - 5 unit SUBCUT QID PRN; Protocol PRN Reason: LOW CORRECTIONAL DOSE Last Admin: 02/10/17 08:34 Dose: 3 units Insulin Detemir (Levemir) 8 unit SUBCUT BID [facility] Stop: 02/13/17 21:00 Lorazepam (Ativan) 0.5 mg PO Q2H PRN PRN Reason: Anxiety Last Admin: 02/09/17 21:08 Dose: 0.5 mg Lorazepam (Ativan) 0.5 mg IVPUSH Q2H PRN PRN Reason: Anxiety Last Admin: 02/07/17 13:32 Dose: 0.5 mg Melatonin (Melatonin) 3 mg PO BEDTIME PRN PRN Reason: Insomnia Last Admin: 02/09/17 21:08 Dose: 3 mg Multivitamins/Minerals (Thera M Plus) 1 tab PO DAILY [facility] Last Admin: 02/10/17 08:28 Dose: 1 tab Nystatin (Nystatin Crm) 0 gm TOP BID [facility] Last Admin: 02/10/17 08:13 Dose: 1 applic Ondansetron HCl (Zofran Odt) 4 mg PO Q6H PRN PRN Reason: Nausea/Vomiting Last Admin: 02/08/17 10:12 Dose: 4 mg Oxycodone HCl (Oxycodone) 5 mg PO Q4H PRN PRN Reason: Pain Pantoprazole Sodium (Protonix) 40 mg PO ACBREAKFAST [facility] Last Admin: 02/10/17 07:00 Dose: 40 mg Potassium Chloride (Klor-Con M20) 20 meq PO DAILY [facility] Last Admin: 02/10/17 08:29 Dose: Not Given Senna/Docusate Sodium (Senna Plus) 1 tab PO BID PRN PRN Reason: Constipation Last Admin: 02/05/17 20:57 Dose: 1 tab Sildenafil Citrate (Revatio) 20 mg PO Q8H [facility] Last Admin: 02/10/17 08:25 Dose: 20 mg Silver Sulfadiazine (Silvadene 1% Cream 50 Gm) 0 gm TOP BID PRN PRN Reason: Wound Care Trazodone HCl (Trazodone) 50 mg PO BEDTIME [facility] Last Admin: 02/09/17 21:00 Dose: 50 mg Discontinued Medications Bumetanide (Bumex) 3 mg PO BID [facility] Last Admin: 02/09/17 20:59 Dose: 3 mg Bumetanide (Bumex) 2 mg IVPUSH ONETIME ONE Stop: 02/09/17 16:25 Last Admin: 02/09/17 15:39 Dose: 2 mg Dextrose/Water (Dextrose 50% In Water) 50 ml IVPUSH ONETIME ONE Stop: 02/06/17 06:15 Last Admin: 02/06/17 06:21 Dose: 50 ml Dextrose/Water (Dextrose 50% In Water) Confirm Administered Dose 50 ml .ROUTE .STK-MED ONE Stop: 02/06/17 06:17 Last Admin: 02/06/17 06:21 Dose: Not Given Dextrose/Water (Dextrose 50% In Water) 50 ml IV ONETIME ONE Stop: 02/06/17 07:46 Last Admin: 02/06/17 09:46 Dose: 50 ml Gentamicin Sulfate 400 mg/ (Sodium Chloride) 160 mls @ 106 mls/hr IV Q36H [facility] Stop: 02/06/17 21:31 Last Admin: 02/06/17 20:39 Dose: 106 mls/hr Meropenem 1 gm/ Sodium (Chloride) 50 mls @ 100 mls/hr IV Q12H [facility] Last Admin: 02/08/17 10:23 Dose: 100 mls/hr Ibuprofen (Motrin) 600 mg PO Q6H PRN PRN Reason: Pain/Fever Last Admin: 02/09/17 19:48 Dose: 600 mg Insulin Aspart (Novolog) 12 unit SUBCUT TIDMEALS [facility] Last Admin: 02/07/17 08:40 Dose: Not Given Insulin Aspart (Novolog) 7 unit SUBCUT NOW ONE Stop: 02/09/17 18:01 Last Admin: 02/09/17 18:13 Dose: 7 unit Insulin Aspart (Novolog) 7 unit SUBCUT ONETIME ONE Stop: 02/10/17 11:31 Insulin Detemir (Levemir) 15 unit SUBCUT BID [facility] Last Admin: 02/07/17 09:23 Dose: Not Given Insulin Detemir (Levemir) 6 unit SUBCUT BID [facility] Stop: 02/13/17 21:00 Last Admin: 02/10/17 08:33 Dose: 6 units Methylprednisolone Sodium Succinate (Solu-Medrol) 40 mg IVPUSH Q8H [facility] Last Admin: 02/10/17 00:03 Dose: 40 mg Non-Formulary Medication (Darbepoetin Diego [Aranesp]) 200 mcg SUBCUT Q14D [facility] Warfarin Sodium (Coumadin) 10 mg PO MoTh@1300 [facility] Last Admin: 02/07/17 15:44 Dose: 10 mg Warfarin Sodium (Coumadin) 7.5 mg PO SuTuWeFrSa@1300 [facility] Last Admin: 02/08/17 14:37 Dose: 7.5 mg - Exam Quality Assessment: supplemental oxygen, DVT prophylaxis General: alert, oriented, cooperative, mild distress Lungs: Decreased breath sounds. No: Crackles, Rales, Rhonchi, Rub, Stridor, Wheezing Cardiovascular: Regular Rate, Regular Rhythm, No Murmurs Abdomen: bowel sounds present, soft, no tenderness, no distension Extremities: edema Skin: warm, dry, intact - Problem List Review Problem List Initiated/Reviewed/Updated: Yes - My Orders Last 24 Hours: My Active Orders 02/09/17 16:41 TRANSFUSION REACTION [BBK] Stat 02/10/17 08:30 Sodium Chloride 0.9% [Normal Saline] 1,000 ml IV ASDIRECTED 02/10/17 09:46 oxyCODONE 5 mg PO Q4H PRN 02/10/17 11:31 Insulin Detemir [Levemir] 8 unit SUBCUT BID 02/10/17 17:00 BASIC METABOLIC PANEL,BMP [CHEM] Urgent 02/11/17 05:00 BASIC METABOLIC PANEL,BMP [CHEM] Timed CBC WITH AUTO DIFF [HEME] Timed INR,PT,PROTHROMBIN TIME [COAG] Timed MAGNESIUM [CHEM] Timed - Plan Plan:: ASSESSMENT AND PLAN ACUTE ON CHRONIC RESPIRATORY FAILURE WITH HYPOXIA AND HYPERCAPNIA-he is really reached end-stage of his disease, unable to go more than short periods of time without use of noninvasive ventilation. He wishes to remain a full code and would want to try intubation, to be removed from the ventilator if he was not improving. Given that he's had previous admissions for respiratory failure and has required regular use of noninvasive ventilation during this hospitalization we'll plan to proceed with discharge to home with home ventilation. Over the past 24 hours has continued to require regular use of the noninvasive ventilation during -Continue use of BiPAP as needed -Arrange for home ventilation -Supplemental oxygen as needed -Continue nebulizer therapy COPD WITH COR PULMONALE-edema has improved but he is now developed increased renal compromise. -Continue management as above -Continue sildenafil -Hold until renal function improves URINARY TRACT INFECTION-chronic indwelling Verma catheter -Urine culture growing enterococcus -Ampicillin 500 mg by mouth 4 times a day DECUBITUS ULCER-present on admission -Continue current therapy and management DIABETES MELLITUS TYPE-glucose levels elevated over the past 24 hours -4 times a day glucometers -Increase dose of long-acting insulin twice daily CHRONIC KIDNEY DISEASE STAGE III-renal function has deteriorated over the past 24 hours likely secondary to overly aggressive diuresis and intravascular volume depletion. - hold diuretic therapy -Gentle hydration -Recheck potassium level and renal function later this afternoon -Continue to monitor renal function and urine output closely HYPERKALEMIA-likely secondary to worsening renal function -Hold potassium supplement -Recheck potassium level later today and again in the a.m. 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 current INR is supratherapeutic -Hold warfarin today -Repeat INR in a.m. MONOCLONAL GAMMOPATHY OF UNDETERMINED SIGNIFICANCE-with associated anemia -Blood has been ordered and is pending, delay secondary to antibiotics MAINTENANCE ISSUES -DVT prophylaxis; current therapy with warfarin should provide adequate DVT prophylaxis -GI prophylaxis; continue PPI therapy -Verma catheter; chronic indwelling -Nutrition; consistent carb diet -Nicotine dependence; not required CODE STATUS-FULL CODE ADMISSION STATUS-patient will be admitted to inpatient status, expect at least a 2 night hospital stay for evaluation and management of problems as outlined above. At the time of this admission I do not reasonably expected evaluation and management of this problem will require more than a 96 hour hospital stay. DISPOSITION-anticipate discharge to home after the hospital stay. PRIMARY CARE PROVIDER-Dr. Leoncio Griffin
[2017-02-10] MEDS ORDERED: Sodium Polystyrene Sulfonate 15 GM/60 ML Susp 60 ML Bot PO ONE (17:51)
[2017-02-10] MEDS: Albuterol 0.083% 2.5 MG/3 ML Neb Soln NEB PRN (18:23)
[2017-02-10] MEDS: oxyCODONE 5 MG Tab PO PRN ×2 (19:36→23:56)
[2017-02-10] MEDS: atorvaSTATin 10 MG Tab PO SCH (21:53)
[2017-02-10] MEDS: Doxazosin 4 MG Tab PO SCH (21:53)
[2017-02-10] MEDS: traZODone 50 MG Tab PO SCH (21:55)
[2017-02-10] MEDS: LORazepam 0.5 MG Tab PO PRN ×2 (22:07→23:56)
[2017-02-10] MEDS: Acetaminophen 325 MG Tab PO PRN (23:55)
[2017-02-11] MEDS: Albuterol/Ipratropium 3.0-0.5 MG/3 ML Neb Soln NEB SCH ×4 (07:12→21:10)
[2017-02-11] MEDS: Sildenafil 20 MG Tab PO SCH ×3 (08:02→23:10)
[2017-02-11] MEDS: Pantoprazole 40 MG Tab.CR PO SCH (08:02)
[2017-02-11] MEDS: Carvedilol 25 MG Tab PO SCH ×2 (08:03→21:01)
[2017-02-11] MEDS: Aspirin 81 MG Tab.EC PO SCH (08:04)
[2017-02-11] MEDS: Multivitamins with Iron/Calcium/Folic Acid/Minerals Tab PO SCH (08:04)
[2017-02-11] MEDS: Nystatin Crm 15 GM Tube TOP SCH ×2 (08:05→21:05)
[2017-02-11] MEDS: Cholecalciferol (Vitamin D3) 1,000 Unit Tab PO SCH ×2 (08:06→20:58)
[2017-02-11] MEDS: Insulin Aspart 100 Units/ML 3 ML Pen SUBCUT PRN (08:07)
[2017-02-11] MEDS: Insulin Detemir 100 Units/ML 3 ML Pen SUBCUT SCH ×2 (08:08→21:02)
[2017-02-11] MEDS: Gabapentin 300 MG Cap PO SCH ×2 (08:14→20:59)
--- NOTE | 2017-02-11 09:57 | PCM.PN ---
- General Info Date of Service: 02/11/17 Functional Status: Reports: pain controlled, tolerating diet. Denies: ambulating - Review of Systems General: Reports: Weakness HEENT: Reports: other (epistaxis ) Pulmonary: Reports: shortness of breath Genitourinary: Reports: hematuria Systems Review Comment:: No acute events overnight. Patient was on noninvasive ventilation again. Had a nosebleed that started in the middle of the night and has persisted into the morning. Hemoglobin stable. Blood pressure stable. Still extremely weak and requires a Tessie lift to get from the bed to the chair and back. No complaints of chest pain. Still feels short of breath and has been coughing. - Patient Data Vitals - most recent: Last Vital Signs Temp 36.6 C 02/11/17 07:00 Pulse 76 02/11/17 08:03 Resp 18 02/11/17 07:00 BP 110/61 02/11/17 08:03 Pulse Ox 89 L 02/11/17 07:00 Weight - most recent: 85.729 kg I&O - last 24 hours: Intake & Output 02/10/17 02/11/17 02/11/17 22:59 06:59 14:59 Intake Total 1602 60 Output Total 125 225 Balance 1477 -165 Lab Results last 24 hrs: Laboratory Results - last 24 hr 02/10/17 02/11/17 02/11/17 Range/Units 17:23 04:10 04:10 WBC 7.8 (4.5-11.0) K/uL RBC 2.98 L (4.30-5.90) M/uL Hgb 8.5 L (12.0-15.0) g/dL Hct 28.1 L (40.0-54.0) % MCV 94 (80-98) fL MCH 29 (27-31) pg MCHC 30 L (32-36) % Plt Count 109 L (150-400) K/uL Neut % (Auto) 85 H (36-66) % Lymph % (Auto) 7 L (24-44) % Polk % (Auto) 8 H (2-6) % Eos % (Auto) 0 L (2-4) % Baso % (Auto) 0 (0-1) % PT 52.8 H (9.5-12.0) sec INR 4.75 H* (0.80-1.20) Sodium 131 L (140-148) mmol/L Potassium 5.8 H (3.6-5.2) mmol/L Chloride 92 L (100-108) mmol/L Carbon Dioxide 38 H (21-32) mmol/L Anion Gap 6.8 (5.0-14.0) mmol/L BUN 89 H* (7-18) mg/dL Creatinine 2.7 H (0.8-1.3) mg/dL Est Cr Clr Drug Dosing 25.95 mL/min Estimated GFR (MDRD) 23 L (>60) Glucose 361 H (74-106) mg/dL Calcium 7.8 L (8.5-10.1) mg/dL Magnesium (1.8-2.4) mg/dL 02/11/17 Range/Units 04:10 WBC (4.5-11.0) K/uL RBC (4.30-5.90) M/uL Hgb (12.0-15.0) g/dL Hct (40.0-54.0) % MCV (80-98) fL MCH (27-31) pg MCHC (32-36) % Plt Count (150-400) K/uL Neut % (Auto) (36-66) % Lymph % (Auto) (24-44) % Polk % (Auto) (2-6) % Eos % (Auto) (2-4) % Baso % (Auto) (0-1) % PT (9.5-12.0) sec INR (0.80-1.20) Sodium 131 L (140-148) mmol/L Potassium 5.0 (3.6-5.2) mmol/L Chloride 93 L (100-108) mmol/L Carbon Dioxide 35 H (21-32) mmol/L Anion Gap 8.0 (5.0-14.0) mmol/L BUN 92 H* (7-18) mg/dL Creatinine 2.9 H (0.8-1.3) mg/dL Est Cr Clr Drug Dosing 24.16 mL/min Estimated GFR (MDRD) 21 L (>60) Glucose 267 H (74-106) mg/dL Calcium 7.6 L (8.5-10.1) mg/dL Magnesium 2.1 (1.8-2.4) mg/dL Med Orders - Current: Current Medications Acetaminophen (Tylenol) 650 mg PO Q4H PRN PRN Reason: pain Last Admin: 02/10/17 23:55 Dose: 650 mg Albuterol (Proventil Neb Soln) 2.5 mg NEB Q4H PRN PRN Reason: Dyspnea Last Admin: 02/10/17 18:23 Dose: 2.5 mg Albuterol/Ipratropium (Duoneb 3.0-0.5 Mg/3 Ml) 3 ml NEB QIDRT [facility] Last Admin: 02/11/17 07:12 Dose: 3 ml Ampicillin (Principen) 500 mg PO Q6H [facility] Last Admin: 02/11/17 05:23 Dose: 500 mg Aspirin (Halfprin) 81 mg PO DAILY [facility] Last Admin: 02/11/17 08:04 Dose: 81 mg Atorvastatin Calcium (Lipitor) 10 mg PO BEDTIME [facility] Last Admin: 02/10/17 21:53 Dose: 10 mg Carvedilol (Coreg) 25 mg PO BID [facility] Last Admin: 02/11/17 08:03 Dose: 25 mg Cholecalciferol (Vitamin D3) 2,000 units PO BID [facility] Last Admin: 02/11/17 08:06 Dose: 2,000 units Dextrose (Glutose 15) 15 gm PO ASDIRECTED PRN PRN Reason: HYPOGLYCEMIA Dextrose/Water (Dextrose 50% In Water) 50 ml IVPUSH ASDIRECTED PRN PRN Reason: HYPOGLYCEMIA Doxazosin Mesylate (Cardura) 2 mg PO BEDTIME [facility] Last Admin: 02/10/17 21:53 Dose: 2 mg Gabapentin (Neurontin) 600 mg PO BID [facility] Last Admin: 02/11/17 08:14 Dose: 600 mg Glucagon (Glucagen) 1 mg IM ASDIRECTED PRN PRN Reason: HYPOGLYCEMIA Sodium Chloride (Normal Saline) 1,000 mls @ 100 mls/hr IV ASDIRECTED [facility] Last Admin: 02/10/17 18:23 Dose: 100 mls/hr Insulin Aspart (Novolog) 0 unit SUBCUT QIDACANDBED [facility] PRN Reason: Protocol Insulin Detemir (Levemir) 8 unit SUBCUT BID [facility] Stop: 02/13/17 21:00 Last Admin: 02/11/17 08:08 Dose: 8 units Lorazepam (Ativan) 0.5 mg PO Q2H PRN PRN Reason: Anxiety Last Admin: 02/10/17 23:56 Dose: 0.5 mg Lorazepam (Ativan) 0.5 mg IVPUSH Q2H PRN PRN Reason: Anxiety Last Admin: 02/07/17 13:32 Dose: 0.5 mg Melatonin (Melatonin) 3 mg PO BEDTIME PRN PRN Reason: Insomnia Last Admin: 02/09/17 21:08 Dose: 3 mg Multivitamins/Minerals (Thera M Plus) 1 tab PO DAILY [facility] Last Admin: 02/11/17 08:04 Dose: 1 tab Nystatin (Nystatin Crm) 0 gm TOP BID [facility] Last Admin: 02/11/17 08:05 Dose: 1 applic Ondansetron HCl (Zofran Odt) 4 mg PO Q6H PRN PRN Reason: Nausea/Vomiting Last Admin: 02/08/17 10:12 Dose: 4 mg Oxycodone HCl (Oxycodone) 5 mg PO Q4H PRN PRN Reason: Pain Last Admin: 02/10/17 23:56 Dose: 5 mg Pantoprazole Sodium (Protonix) 40 mg PO ACBREAKFAST [facility] Last Admin: 02/11/17 08:02 Dose: 40 mg Phytonadione (Aquamephyton) 2.5 mg PO ONETIME ONE Stop: 02/11/17 09:49 Potassium Chloride (Klor-Con M20) 20 meq PO DAILY [facility] Last Admin: 02/10/17 08:29 Dose: Not Given Senna/Docusate Sodium (Senna Plus) 1 tab PO BID PRN PRN Reason: Constipation Last Admin: 02/05/17 20:57 Dose: 1 tab Sildenafil Citrate (Revatio) 20 mg PO Q8H [facility] Last Admin: 02/11/17 08:02 Dose: 20 mg Silver Sulfadiazine (Silvadene 1% Cream 50 Gm) 0 gm TOP BID PRN PRN Reason: Wound Care Trazodone HCl (Trazodone) 50 mg PO BEDTIME [facility] Last Admin: 02/10/17 21:55 Dose: 50 mg Discontinued Medications Bumetanide (Bumex) 3 mg PO BID [facility] Last Admin: 02/09/17 20:59 Dose: 3 mg Bumetanide (Bumex) 2 mg IVPUSH ONETIME ONE Stop: 02/09/17 16:25 Last Admin: 02/09/17 15:39 Dose: 2 mg Dextrose/Water (Dextrose 50% In Water) 50 ml IVPUSH ONETIME ONE Stop: 02/06/17 06:15 Last Admin: 02/06/17 06:21 Dose: 50 ml Dextrose/Water (Dextrose 50% In Water) Confirm Administered Dose 50 ml .ROUTE .STK-MED ONE Stop: 02/06/17 06:17 Last Admin: 02/06/17 06:21 Dose: Not Given Dextrose/Water (Dextrose 50% In Water) 50 ml IV ONETIME ONE Stop: 02/06/17 07:46 Last Admin: 02/06/17 09:46 Dose: 50 ml Gentamicin Sulfate 400 mg/ (Sodium Chloride) 160 mls @ 106 mls/hr IV Q36H [facility] Stop: 02/06/17 21:31 Last Admin: 02/06/17 20:39 Dose: 106 mls/hr Meropenem 1 gm/ Sodium (Chloride) 50 mls @ 100 mls/hr IV Q12H [facility] Last Admin: 02/08/17 10:23 Dose: 100 mls/hr Ampicillin Sodium 2 gm/ Sodium (Chloride) 100 mls @ 200 mls/hr IV Q6H [facility] Last Admin: 02/10/17 05:37 Dose: 200 mls/hr Ibuprofen (Motrin) 600 mg PO Q6H PRN PRN Reason: Pain/Fever Last Admin: 02/09/17 19:48 Dose: 600 mg Insulin Aspart (Novolog) 12 unit SUBCUT TIDMEALS [facility] Last Admin: 02/07/17 08:40 Dose: Not Given Insulin Aspart (Novolog) 0 - 5 unit SUBCUT QID PRN; Protocol PRN Reason: LOW CORRECTIONAL DOSE Last Admin: 02/11/17 08:07 Dose: 2 units Insulin Aspart (Novolog) 7 unit SUBCUT NOW ONE Stop: 02/09/17 18:01 Last Admin: 02/09/17 18:13 Dose: 7 unit Insulin Aspart (Novolog) 7 unit SUBCUT ONETIME ONE Stop: 02/10/17 11:31 Last Admin: 02/10/17 12:07 Dose: 7 units Insulin Aspart (Novolog) 7 unit SUBCUT ONETIME ONE Stop: 02/10/17 16:51 Last Admin: 02/10/17 17:14 Dose: 7 units Insulin Aspart (Novolog) 7 unit SUBCUT ONETIME ONE Stop: 02/10/17 21:51 Last Admin: 02/10/17 22:13 Dose: 7 units Insulin Detemir (Levemir) 15 unit SUBCUT BID [facility] Last Admin: 02/07/17 09:23 Dose: Not Given Insulin Detemir (Levemir) 6 unit SUBCUT BID [facility] Stop: 02/13/17 21:00 Last Admin: 02/10/17 08:33 Dose: 6 units Methylprednisolone Sodium Succinate (Solu-Medrol) 40 mg IVPUSH Q8H [facility] Last Admin: 02/10/17 00:03 Dose: 40 mg Non-Formulary Medication (Darbepoetin Diego [Aranesp]) 200 mcg SUBCUT Q14D [facility] Sodium Polystyrene Sulfonate (Kayexalate) 30 gm PO ONETIME ONE Stop: 02/10/17 17:52 Last Admin: 02/10/17 18:23 Dose: 30 gm Warfarin Sodium (Coumadin) 10 mg PO MoTh@1300 [facility] Last Admin: 02/07/17 15:44 Dose: 10 mg Warfarin Sodium (Coumadin) 7.5 mg PO SuTuWeFrSa@1300 [facility] Last Admin: 02/08/17 14:37 Dose: 7.5 mg - Exam Quality Assessment: supplemental oxygen, urine catheter General: alert, oriented, cooperative, no acute distress, lethargic HEENT: Pupils equal Neck: supple Lungs: Normal respiratory effort, Rales (few crackles throughout all lung garcia ). No: Wheezing Cardiovascular: Regular Rate, Regular Rhythm, Murmurs, Other (crisp valve sounds ) Abdomen: bowel sounds present, soft, no tenderness, no distension Extremities: no edema, no cyanosis Skin: warm, dry Psy/Mental Status: alert, normal affect - Problem List Review Problem List Initiated/Reviewed/Updated: Yes - My Orders Last 24 Hours: My Active Orders 02/11/17 09:48 Phytonadione [AquaMephyton] 2.5 mg PO ONETIME ONE 02/11/17 11:00 Insulin Aspart [NovoLOG] See Protocol SUBCUT QIDACANDBED 02/12/17 05:00 BASIC METABOLIC PANEL,BMP [CHEM] Timed CBC W/O DIFF,HEMOGRAM [HEME] Timed (1) INR,PT,PROTHROMBIN TIME [COAG] Timed - Plan Plan:: ASSESSMENT AND PLAN ACUTE ON CHRONIC RESPIRATORY FAILURE WITH HYPOXIA AND HYPERCAPNIA - he hasreached end-stage of his disease, seems to be dependent on noninvasive ventilation at night and some during the day. No evidence for acute pulmonary infection. Volume status appears to be appropriate. Previous admissions requiring noninvasive ventilation, planning discharge with [facility]. Significant symptoms but seems to be slowly improving with current cares. -Continue use of NIPPV as needed -Arrange for home ventilation with Trilogy system -Supplemental oxygen as needed -Continue nebulizer therapy EPISTAXIS - started last night and has continued through the morning. Persistent bleeding. With respiratory compromise I don't believe that a Rhino Rocket is a good idea. -Small dose of vitamin K -INR in the morning COPD WITH COR PULMONALE - edema has improved but he is now developed increased renal compromise due to 2 intravascular volume depletion. -Continue management as above -Continue sildenafil -Hold diuresis until renal function improves Enterococcus URINARY TRACT INFECTION - chronic indwelling Verma catheter. Moderate enterococcus growth in urine culture. -Urine culture growing enterococcus -Ampicillin 500 mg by mouth 4 times a day DECUBITUS ULCER - present on admission -Continue current therapy and management DIABETES MELLITUS TYPE - glucose levels elevated over the past 24 hours -4 times a day glucometers -Increase dose of long-acting insulin twice daily -High dose sliding scale Acute on chronic renal failure - renal function has deteriorated over the past few days hours likely secondary to overly aggressive diuresis and intravascular volume depletion. -hold diuretic therapy -Gentle hydration again overnight -Recheck labs in the morning -Continue to monitor renal function and urine output closely HYPERKALEMIA - likely secondary to worsening renal function, level has improved with gentle hydration. -Hold potassium supplement -Recheck potassium level in the a.m. 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 -Continue current management MECHANICAL AORTIC VALVE REPLACEMENT - on long-term oral anticoagulation with warfarin. current INR is supratherapeutic and he now has epistaxis. -Hold warfarin today -Small dose of vitamin K this morning -Repeat INR in a.m. MONOCLONAL GAMMOPATHY OF UNDETERMINED SIGNIFICANCE - with associated anemia. He did get 1 unit of packed red blood cells but had a reaction with the second unit and this was not completed. -Hemoglobin in the morning MAINTENANCE ISSUES -DVT prophylaxis; current therapy with warfarin should provide adequate DVT prophylaxis -GI prophylaxis; continue PPI therapy -Verma catheter; chronic indwelling -Nutrition; consistent carb diet DISPOSITION - anticipate discharge to home versus to a retirement facility after the hospital stay. Tato Lua M.D.
[2017-02-11] MEDS ORDERED: Phytonadione ORAL 5mg/5ml Soln Simple Syrup U/D PO ONE (10:30)
[2017-02-11] MEDS: Insulin Aspart 100 Units/ML 3 ML Pen SUBCUT SCH ×3 (11:42→21:02)
[2017-02-11] MEDS: Albuterol 0.083% 2.5 MG/3 ML Neb Soln NEB PRN (19:16)
[2017-02-11] MEDS ORDERED: Oxymetazoline 0.05% Nasal Spray 15 ML Bottle NAS PRN (20:23)
[2017-02-11] MEDS: Doxazosin 4 MG Tab PO SCH (20:59)
[2017-02-11] MEDS: atorvaSTATin 10 MG Tab PO SCH (21:05)
[2017-02-11] MEDS: traZODone 50 MG Tab PO SCH (21:06)
[2017-02-11] MEDS: Sodium Chloride 0.9% 1,000 ML IV SCH (23:11)
[2017-02-11] MEDS: LORazepam 2 MG/ML MDV IVPUSH PRN (23:46)
[2017-02-12] MEDS: Albuterol/Ipratropium 3.0-0.5 MG/3 ML Neb Soln NEB SCH ×4 (06:37→21:37)
[2017-02-12] MEDS ORDERED: diphenhydrAMINE 25 MG Cap PO ONE (07:00)
[2017-02-12] MEDS: Insulin Aspart 100 Units/ML 3 ML Pen SUBCUT SCH ×4 (07:32→21:43)
[2017-02-12] MEDS: Potassium Chloride 20 MEQ Tab.ER PO SCH (08:41)
[2017-02-12] MEDS: Carvedilol 25 MG Tab PO SCH ×2 (08:41→21:37)
[2017-02-12] MEDS: Cholecalciferol (Vitamin D3) 1,000 Unit Tab PO SCH ×2 (08:41→21:41)
[2017-02-12] MEDS: Gabapentin 300 MG Cap PO SCH ×2 (08:41→21:39)
[2017-02-12] MEDS: Nystatin Crm 15 GM Tube TOP SCH ×2 (08:42→21:41)
[2017-02-12] MEDS: Pantoprazole 40 MG Tab.CR PO SCH (08:42)
[2017-02-12] MEDS: Multivitamins with Iron/Calcium/Folic Acid/Minerals Tab PO SCH (08:42)
[2017-02-12] MEDS: Sildenafil 20 MG Tab PO SCH ×3 (08:42→23:59)
[2017-02-12] MEDS: Aspirin 81 MG Tab.EC PO SCH (08:42)
[2017-02-12] MEDS: Insulin Detemir 100 Units/ML 3 ML Pen SUBCUT SCH ×2 (08:51→21:43)
[2017-02-12] MEDS: Sodium Chloride 0.9% 1,000 ML IV SCH (08:56)
--- NOTE | 2017-02-12 09:23 | PCM.PN ---
- General Info Date of Service: 02/12/17 Functional Status: Reports: pain controlled. Denies: ambulating - Review of Systems General: Reports: Weakness Pulmonary: Reports: shortness of breath Systems Review Comment:: Radha had some difficulty last night with a nosebleed that finally seems to have stopped. He reports he did not sleep well continues the noninvasive ventilation much of the night. This morning he is very sleepy and is unable to participate much in the conversation. He says that he feels lousy. He says that he feels short of breath but that was about as far as we got. Kidney function continues to decline slowly. He has not been having any fevers. INR today is normal at 2.4. - Patient Data Vitals - most recent: Last Vital Signs Temp 35.9 C 02/12/17 07:00 Pulse 79 02/12/17 07:00 Resp 22 H 02/12/17 07:00 BP 104/59 L 02/12/17 07:00 Pulse Ox 91 L 02/12/17 07:00 Weight - most recent: 98.2 kg I&O - last 24 hours: Intake & Output 02/11/17 02/12/17 02/12/17 22:59 06:59 14:59 Intake Total 2542 1416 360 Output Total 350 450 Balance 2192 966 360 Lab Results last 24 hrs: Laboratory Results - last 24 hr 02/11/17 02/12/17 02/12/17 Range/Units 19:42 04:45 04:45 WBC 5.9 (4.5-11.0) K/uL RBC 2.77 L (4.30-5.90) M/uL Hgb 8.6 L 7.8 L (12.0-15.0) g/dL Hct 26.5 L (40.0-54.0) % MCV 96 (80-98) fL MCH 28 (27-31) pg MCHC 29 L (32-36) % Plt Count 89 L (150-400) K/uL PT 26.9 H (9.5-12.0) sec INR 2.47 H D (0.80-1.20) Sodium (140-148) mmol/L Potassium (3.6-5.2) mmol/L Chloride (100-108) mmol/L Carbon Dioxide (21-32) mmol/L Anion Gap (5.0-14.0) mmol/L BUN (7-18) mg/dL Creatinine (0.8-1.3) mg/dL Est Cr Clr Drug Dosing mL/min Estimated GFR (MDRD) (>60) Glucose (74-106) mg/dL Calcium (8.5-10.1) mg/dL 02/12/17 Range/Units 04:45 WBC (4.5-11.0) K/uL RBC (4.30-5.90) M/uL Hgb (12.0-15.0) g/dL Hct (40.0-54.0) % MCV (80-98) fL MCH (27-31) pg MCHC (32-36) % Plt Count (150-400) K/uL PT (9.5-12.0) sec INR (0.80-1.20) Sodium 135 L (140-148) mmol/L Potassium 4.2 (3.6-5.2) mmol/L Chloride 96 L (100-108) mmol/L Carbon Dioxide 36 H (21-32) mmol/L Anion Gap 7.2 (5.0-14.0) mmol/L BUN 101 H* (7-18) mg/dL Creatinine 3.1 H (0.8-1.3) mg/dL Est Cr Clr Drug Dosing 22.60 mL/min Estimated GFR (MDRD) 20 L (>60) Glucose 121 H (74-106) mg/dL Calcium 7.8 L (8.5-10.1) mg/dL Med Orders - Current: Current Medications Acetaminophen (Tylenol) 650 mg PO Q4H PRN PRN Reason: pain Last Admin: 02/10/17 23:55 Dose: 650 mg Albuterol (Proventil Neb Soln) 2.5 mg NEB Q4H PRN PRN Reason: Dyspnea Last Admin: 02/11/17 19:16 Dose: 2.5 mg Albuterol/Ipratropium (Duoneb 3.0-0.5 Mg/3 Ml) 3 ml NEB QIDRT [facility] Last Admin: 02/12/17 06:37 Dose: 3 ml Aspirin (Halfprin) 81 mg PO DAILY [facility] Last Admin: 02/12/17 08:42 Dose: 81 mg Atorvastatin Calcium (Lipitor) 10 mg PO BEDTIME [facility] Last Admin: 02/11/17 21:05 Dose: 10 mg Carvedilol (Coreg) 25 mg PO BID [facility] Last Admin: 02/12/17 08:41 Dose: 25 mg Cholecalciferol (Vitamin D3) 2,000 units PO BID [facility] Last Admin: 02/12/17 08:41 Dose: 2,000 units Dextrose (Glutose 15) 15 gm PO ASDIRECTED PRN PRN Reason: HYPOGLYCEMIA Dextrose/Water (Dextrose 50% In Water) 50 ml IVPUSH ASDIRECTED PRN PRN Reason: HYPOGLYCEMIA Doxazosin Mesylate (Cardura) 2 mg PO BEDTIME [facility] Last Admin: 02/11/17 20:59 Dose: 2 mg Gabapentin (Neurontin) 600 mg PO BID [facility] Last Admin: 02/12/17 08:41 Dose: 600 mg Glucagon (Glucagen) 1 mg IM ASDIRECTED PRN PRN Reason: HYPOGLYCEMIA Insulin Detemir (Levemir) 8 unit SUBCUT BID [facility] Stop: 02/13/17 21:00 Last Admin: 02/12/17 08:51 Dose: 8 units Lorazepam (Ativan) 0.5 mg PO Q2H PRN PRN Reason: Anxiety Last Admin: 02/10/17 23:56 Dose: 0.5 mg Lorazepam (Ativan) 0.5 mg IVPUSH Q2H PRN PRN Reason: Anxiety Last Admin: 02/11/17 23:46 Dose: 0.5 mg Melatonin (Melatonin) 3 mg PO BEDTIME PRN PRN Reason: Insomnia Last Admin: 02/09/17 21:08 Dose: 3 mg Multivitamins/Minerals (Thera M Plus) 1 tab PO DAILY [facility] Last Admin: 02/12/17 08:42 Dose: 1 tab Nystatin (Nystatin Crm) 0 gm TOP BID [facility] Last Admin: 02/12/17 08:42 Dose: 1 applic Ondansetron HCl (Zofran Odt) 4 mg PO Q6H PRN PRN Reason: Nausea/Vomiting Last Admin: 02/08/17 10:12 Dose: 4 mg Oxycodone HCl (Oxycodone) 5 mg PO Q4H PRN PRN Reason: Pain Last Admin: 02/10/17 23:56 Dose: 5 mg Oxymetazoline HCl (Afrin Original 0.05% Nasal [place]) 0 ml FEDE Q12H PRN PRN Reason: Other Last Admin: 02/11/17 20:58 Dose: 2 spray Pantoprazole Sodium (Protonix) 40 mg PO ACBREAKFAST [facility] Last Admin: 02/12/17 08:42 Dose: 40 mg Potassium Chloride (Klor-Con M20) 20 meq PO DAILY [facility] Last Admin: 02/12/17 08:41 Dose: 20 meq Senna/Docusate Sodium (Senna Plus) 1 tab PO BID PRN PRN Reason: Constipation Last Admin: 02/05/17 20:57 Dose: 1 tab Sildenafil Citrate (Revatio) 20 mg PO Q8H [facility] Last Admin: 02/12/17 08:42 Dose: 20 mg Silver Sulfadiazine (Silvadene 1% Cream 50 Gm) 0 gm TOP BID PRN PRN Reason: Wound Care Trazodone HCl (Trazodone) 50 mg PO BEDTIME [facility] Last Admin: 02/11/17 21:06 Dose: 50 mg Discontinued Medications Ampicillin (Principen) 500 mg PO Q6H [facility] Last Admin: 02/12/17 05:07 Dose: 500 mg Bumetanide (Bumex) 3 mg PO BID [facility] Last Admin: 02/09/17 20:59 Dose: 3 mg Bumetanide (Bumex) 2 mg IVPUSH ONETIME ONE Stop: 02/09/17 16:25 Last Admin: 02/09/17 15:39 Dose: 2 mg Dextrose/Water (Dextrose 50% In Water) 50 ml IVPUSH ONETIME ONE Stop: 02/06/17 06:15 Last Admin: 02/06/17 06:21 Dose: 50 ml Dextrose/Water (Dextrose 50% In Water) Confirm Administered Dose 50 ml .ROUTE .STK-MED ONE Stop: 02/06/17 06:17 Last Admin: 02/06/17 06:21 Dose: Not Given Dextrose/Water (Dextrose 50% In Water) 50 ml IV ONETIME ONE Stop: 02/06/17 07:46 Last Admin: 02/06/17 09:46 Dose: 50 ml Diphenhydramine HCl (Benadryl) 25 mg PO ONETIME ONE Stop: 02/12/17 07:01 Last Admin: 02/12/17 08:40 Dose: Not Given Gentamicin Sulfate 400 mg/ (Sodium Chloride) 160 mls @ 106 mls/hr IV Q36H [facility] Stop: 02/06/17 21:31 Last Admin: 02/06/17 20:39 Dose: 106 mls/hr Meropenem 1 gm/ Sodium (Chloride) 50 mls @ 100 mls/hr IV Q12H [facility] Last Admin: 02/08/17 10:23 Dose: 100 mls/hr Ampicillin Sodium 2 gm/ Sodium (Chloride) 100 mls @ 200 mls/hr IV Q6H [facility] Last Admin: 02/10/17 05:37 Dose: 200 mls/hr Sodium Chloride (Normal Saline) 1,000 mls @ 100 mls/hr IV ASDIRECTED [facility] Last Admin: 02/12/17 08:56 Dose: 100 mls/hr Ibuprofen (Motrin) 600 mg PO Q6H PRN PRN Reason: Pain/Fever Last Admin: 02/09/17 19:48 Dose: 600 mg Insulin Aspart (Novolog) 12 unit SUBCUT TIDMEALS [facility] Last Admin: 02/07/17 08:40 Dose: Not Given Insulin Aspart (Novolog) 0 - 5 unit SUBCUT QID PRN; Protocol PRN Reason: LOW CORRECTIONAL DOSE Last Admin: 02/11/17 08:07 Dose: 2 units Insulin Aspart (Novolog) 7 unit SUBCUT NOW ONE Stop: 02/09/17 18:01 Last Admin: 02/09/17 18:13 Dose: 7 unit Insulin Aspart (Novolog) 7 unit SUBCUT ONETIME ONE Stop: 02/10/17 11:31 Last Admin: 02/10/17 12:07 Dose: 7 units Insulin Aspart (Novolog) 7 unit SUBCUT ONETIME ONE Stop: 02/10/17 16:51 Last Admin: 02/10/17 17:14 Dose: 7 units Insulin Aspart (Novolog) 7 unit SUBCUT ONETIME ONE Stop: 02/10/17 21:51 Last Admin: 02/10/17 22:13 Dose: 7 units Insulin Aspart (Novolog) 0 unit SUBCUT QIDACANDBED [facility] PRN Reason: Protocol Last Admin: 02/12/17 07:32 Dose: Not Given Insulin Detemir (Levemir) 15 unit SUBCUT BID [facility] Last Admin: 02/07/17 09:23 Dose: Not Given Insulin Detemir (Levemir) 6 unit SUBCUT BID [facility] Stop: 02/13/17 21:00 Last Admin: 02/10/17 08:33 Dose: 6 units Methylprednisolone Sodium Succinate (Solu-Medrol) 40 mg IVPUSH Q8H [facility] Last Admin: 02/10/17 00:03 Dose: 40 mg Non-Formulary Medication (Darbepoetin Diego [Aranesp]) 200 mcg SUBCUT Q14D [facility] Phytonadione (Aquamephyton) 2.5 mg PO ONETIME ONE Stop: 02/11/17 10:31 Last Admin: 02/11/17 10:34 Dose: 2.5 mg Sodium Polystyrene Sulfonate (Kayexalate) 30 gm PO ONETIME ONE Stop: 02/10/17 17:52 Last Admin: 02/10/17 18:23 Dose: 30 gm Warfarin Sodium (Coumadin) 10 mg PO MoTh@1300 [facility] Last Admin: 02/07/17 15:44 Dose: 10 mg Warfarin Sodium (Coumadin) 7.5 mg PO SuTuWeFrSa@1300 [facility] Last Admin: 02/08/17 14:37 Dose: 7.5 mg - Exam Quality Assessment: supplemental oxygen, urine catheter General: alert, cooperative, no acute distress, lethargic HEENT: Pupils equal Neck: supple Lungs: Clear to auscultation, Normal respiratory effort, Decreased breath sounds (both bases) Cardiovascular: Regular Rate, Regular Rhythm, Murmurs Abdomen: soft, no tenderness, no distension Extremities: no edema, no cyanosis Skin: warm, dry Psy/Mental Status: other (lethargic ). No: agitated - Problem List Review Problem List Initiated/Reviewed/Updated: Yes - My Orders Last 24 Hours: My Active Orders 02/11/17 20:23 Oxymetazoline [Afrin Original 0.05% Nasal [place]] See Dose Instructions FEDE Q12H PRN 02/12/17 06:10 RED BLOOD CELLS LP [BBK] Routine 02/12/17 06:11 Transfuse Red Blood Cells [COMM] Routine 02/12/17 07:00 Communication Order [RC] ASDIRECTED 02/12/17 09:04 Sodium Chloride 0.9% [Normal Saline] 1,000 ml IV ASDIRECTED 02/12/17 09:05 Warfarin [Coumadin] 7.5 mg PO ONETIME ONE 02/12/17 09:12 methylPREDNISolone Sod Succ [Solu-MEDROL] 125 mg IVPUSH ONETIME ONE 02/12/17 09:16 diphenhydrAMINE [Benadryl] 50 mg IVPUSH ONETIME ONE 02/12/17 11:00 Insulin Aspart [NovoLOG] See Protocol SUBCUT QIDACANDBED 02/12/17 14:00 Ampicillin [Principen] 500 mg PO TID 02/13/17 05:00 CBC W/O DIFF,HEMOGRAM [HEME] Timed (1) COMPREHENSIVE METABOLIC PN,CMP [CHEM] Timed INR,PT,PROTHROMBIN TIME [COAG] Timed MAGNESIUM [CHEM] Timed PHOSPHORUS [CHEM] Timed - Plan Plan:: ASSESSMENT AND PLAN ACUTE ON CHRONIC RESPIRATORY FAILURE WITH HYPOXIA AND HYPERCAPNIA - he has reached end-stage of his disease, seems to be dependent on noninvasive ventilation at night and often during the day. No evidence for acute pulmonary infection. Volume status appears to be appropriate. Intermittent episodes of somnolence likely related to CO2 retention and do respond to noninvasive ventilation. Family seems to understand the severity of his disease but he is having trouble comprehending that he is at the end stage of his disease and there are likely not any additional treatments or medications that can improve things very much if at all. -Continue use of NIPPV as needed -Supplemental oxygen when not using NIPPV -Arrange for home ventilation with Trilogy system -Supplemental oxygen as needed -Continue nebulizer therapy Acute on chronic renal failure - renal function has deteriorated over the past few days hours likely secondary to overly aggressive diuresis and intravascular volume depletion. -hold diuretic therapy -Gentle hydration again overnight -Recheck labs in the morning -Continue to monitor renal function and urine output closely EPISTAXIS - finally stopped yesterday evening after dose of vitamin K and a dose of Afrin. -Afrin as needed -INR in the morning COPD WITH COR PULMONALE - edema has improved with diuresis but he has had a progressive decline in his kidney function. Appears close to euvolemic at this time. 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 Moderate enterococcus growth in urine culture. -Urine culture growing enterococcus -Ampicillin 500 mg by mouth 3 times a day DECUBITUS ULCER - present on admission. -Continue current therapy and management DIABETES MELLITUS TYPE - glucose levels have improved with adjustments in insulin dosing. 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 -Continue current management MECHANICAL AORTIC VALVE REPLACEMENT - on long-term oral anticoagulation with warfarin. current INR is therapeutic after vitamin K yesterday. -Restart warfarin today -Repeat INR in a.m. MONOCLONAL GAMMOPATHY OF UNDETERMINED SIGNIFICANCE - with associated anemia. Planning to transfuse one additional unit today. With history of transfusion reactions were going to premedicate. Hemoglobin less than 8 with significant systemic disease. -Transfuse 1 unit -Premedicate with Solu-Medrol, Benadryl and Tylenol -Hemoglobin in the morning MAINTENANCE ISSUES -DVT prophylaxis; current therapy with warfarin should provide adequate DVT prophylaxis -GI prophylaxis; continue PPI therapy -Verma catheter; chronic indwelling -Nutrition; consistent carb diet DISPOSITION - anticipate discharge to home versus to a shelter facility after the hospital stay. Tato Lua M.D.
[2017-02-12] MEDS ORDERED: diphenhydrAMINE 50 MG/ML SDV IVPUSH ONE (09:30)
[2017-02-12] MEDS ORDERED: methylPREDNISolone Sodium Succinate 125 MG/2 ML SDV IVPUSH ONE (09:30)
[2017-02-12] MEDS: LORazepam 0.5 MG Tab PO PRN (10:22)
[2017-02-12] MEDS: Albuterol 0.083% 2.5 MG/3 ML Neb Soln NEB PRN (10:33)
[2017-02-12] MEDS ORDERED: Warfarin 2.5 MG Tab PO ONE (13:00)
[2017-02-12] MEDS: oxyCODONE 5 MG Tab PO PRN (17:52)
[2017-02-12] MEDS: atorvaSTATin 10 MG Tab PO SCH (21:39)
[2017-02-12] MEDS: Doxazosin 4 MG Tab PO SCH (21:39)
[2017-02-12] MEDS: traZODone 50 MG Tab PO SCH (21:41)
[2017-02-13] MEDS: Albuterol/Ipratropium 3.0-0.5 MG/3 ML Neb Soln NEB SCH ×4 (07:07→21:27)
[2017-02-13] MEDS: Pantoprazole 40 MG Tab.CR PO SCH ×2 (07:44→07:46)
--- NOTE | 2017-02-13 09:14 | PCM.PN ---
- General Info Date of Service: 02/13/17 Functional Status: Reports: pain controlled. Denies: ambulating - Review of Systems General: Reports: Weakness Pulmonary: Reports: shortness of breath Neurological: Reports: Confusion Systems Review Comment:: No acute events overnight. He utilized the noninvasive ventilation much of the night. He has been off for a while this morning and is lethargic and does not participate in the discussion this morning. Urine output has been declining and creatinine has been rising. Blood pressures have been stable as has his heart rate. He has not had much to eat. Blood sugars have been acceptable. - Patient Data Vitals - most recent: Last Vital Signs Temp 36.7 C 02/13/17 07:00 Pulse 75 02/13/17 07:07 Resp 20 02/13/17 07:00 BP 138/62 02/13/17 07:00 Pulse Ox 97 02/13/17 07:00 Weight - most recent: 103.5 kg I&O - last 24 hours: Intake & Output 02/12/17 02/13/17 02/13/17 22:59 06:59 14:59 Intake Total 1367 652 Output Total 400 450 Balance 967 202 Lab Results last 24 hrs: Laboratory Results - last 24 hr 02/09/17 02/12/17 02/13/17 Range/Units 16:41 10:55 05:50 WBC 5.8 (4.5-11.0) K/uL RBC 3.28 L (4.30-5.90) M/uL Hgb 9.3 L (12.0-15.0) g/dL Hct 30.9 L (40.0-54.0) % MCV 94 (80-98) fL MCH 28 (27-31) pg MCHC 30 L (32-36) % Plt Count 78 L (150-400) K/uL PT (9.5-12.0) sec INR (0.80-1.20) Sodium (140-148) mmol/L Potassium (3.6-5.2) mmol/L Chloride (100-108) mmol/L Carbon Dioxide (21-32) mmol/L Anion Gap (5.0-14.0) mmol/L BUN (7-18) mg/dL Creatinine (0.8-1.3) mg/dL Est Cr Clr Drug Dosing mL/min Estimated GFR (MDRD) (>60) Glucose (74-106) mg/dL Calcium (8.5-10.1) mg/dL Phosphorus (2.5-4.9) mg/dL Magnesium (1.8-2.4) mg/dL Total Bilirubin (0.2-1.0) mg/dL AST (15-37) U/L ALT (12-78) U/L Alkaline Phosphatase (46-116) U/L Total Protein (6.4-8.2) g/dL Albumin (3.4-5.0) g/dL Globulin (2.3-3.5) g/dL Albumin/Globulin Ratio (1.2-2.2) Blood Type A POSITIVE Gel Antibody Screen Negative Crossmatch See Detail See Detail Tx Rx Implicated Unit 1 [id number] Unit 1 Component A pos Urine Blood Moderate Reaction Clerical Check Acceptable Pre-Trans Blood Type A positive Pre-Trans Vis Hemolysis Negative Pre-Trans Icterus Negative Pre-Trans CHE IgG Negative Post-Trans Blood Type A positive Post-Tx Visible Hemolys Negative Post-Trans Icterus Negative Post-Trans CHE IgG Negative Reaction Interpretation Febrile rx 02/13/17 02/13/17 Range/Units 05:50 05:50 WBC (4.5-11.0) K/uL RBC (4.30-5.90) M/uL Hgb (12.0-15.0) g/dL Hct (40.0-54.0) % MCV (80-98) fL MCH (27-31) pg MCHC (32-36) % Plt Count (150-400) K/uL PT 17.5 H (9.5-12.0) sec INR 1.63 H (0.80-1.20) Sodium 133 L (140-148) mmol/L Potassium 5.2 (3.6-5.2) mmol/L Chloride 96 L (100-108) mmol/L Carbon Dioxide 31 (21-32) mmol/L Anion Gap 11.2 (5.0-14.0) mmol/L BUN 110 H* (7-18) mg/dL Creatinine 3.3 H (0.8-1.3) mg/dL Est Cr Clr Drug Dosing 21.23 mL/min Estimated GFR (MDRD) 18 L (>60) Glucose 234 H (74-106) mg/dL Calcium 8.0 L (8.5-10.1) mg/dL Phosphorus 7.2 H (2.5-4.9) mg/dL Magnesium 2.1 (1.8-2.4) mg/dL Total Bilirubin 1.6 H (0.2-1.0) mg/dL AST 13 L (15-37) U/L ALT 18 (12-78) U/L Alkaline Phosphatase 77 (46-116) U/L Total Protein 6.8 (6.4-8.2) g/dL Albumin 2.6 L (3.4-5.0) g/dL Globulin 4.2 H (2.3-3.5) g/dL Albumin/Globulin Ratio 0.6 L (1.2-2.2) Blood Type Gel Antibody Screen Crossmatch Tx Rx Implicated Unit 1 Unit 1 Component Urine Blood Reaction Clerical Check Pre-Trans Blood Type Pre-Trans Vis Hemolysis Pre-Trans Icterus Pre-Trans CHE IgG Post-Trans Blood Type Post-Tx Visible Hemolys Post-Trans Icterus Post-Trans CHE IgG Reaction Interpretation Med Orders - Current: Current Medications Acetaminophen (Tylenol) 650 mg PO Q4H PRN PRN Reason: pain Last Admin: 02/10/17 23:55 Dose: 650 mg Albuterol (Proventil Neb Soln) 2.5 mg NEB Q4H PRN PRN Reason: Dyspnea Last Admin: 02/12/17 10:33 Dose: 2.5 mg Albuterol/Ipratropium (Duoneb 3.0-0.5 Mg/3 Ml) 3 ml NEB QIDRT [facility] Last Admin: 02/13/17 07:07 Dose: 3 ml Aspirin (Halfprin) 81 mg PO DAILY [facility] Last Admin: 02/12/17 08:42 Dose: 81 mg Atorvastatin Calcium (Lipitor) 10 mg PO BEDTIME [facility] Last Admin: 02/12/17 21:39 Dose: 10 mg Bumetanide (Bumex) 2 mg IVPUSH ONETIME ONE Stop: 02/13/17 09:11 Carvedilol (Coreg) 25 mg PO BID [facility] Last Admin: 02/12/17 21:37 Dose: 25 mg Cholecalciferol (Vitamin D3) 2,000 units PO BID [facility] Last Admin: 02/12/17 21:41 Dose: 2,000 units Dextrose (Glutose 15) 15 gm PO ASDIRECTED PRN PRN Reason: HYPOGLYCEMIA Dextrose/Water (Dextrose 50% In Water) 50 ml IVPUSH ASDIRECTED PRN PRN Reason: HYPOGLYCEMIA Doxazosin Mesylate (Cardura) 2 mg PO BEDTIME [facility] Last Admin: 02/12/17 21:39 Dose: 2 mg Gabapentin (Neurontin) 600 mg PO BID [facility] Last Admin: 02/12/17 21:39 Dose: 600 mg Glucagon (Glucagen) 1 mg IM ASDIRECTED PRN PRN Reason: HYPOGLYCEMIA Sodium Chloride (Normal Saline) 1,000 mls @ 50 mls/hr IV ASDIRECTED [facility] Insulin Aspart (Novolog) 0 unit SUBCUT QIDACANDBED [facility] PRN Reason: Protocol Last Admin: 02/12/17 21:43 Dose: 4 units Insulin Detemir (Levemir) 8 unit SUBCUT BID [facility] Stop: 02/13/17 21:00 Last Admin: 02/12/17 21:43 Dose: 8 units Lorazepam (Ativan) 0.5 mg PO Q2H PRN PRN Reason: Anxiety Last Admin: 02/12/17 10:22 Dose: 0.5 mg Lorazepam (Ativan) 0.5 mg IVPUSH Q2H PRN PRN Reason: Anxiety Last Admin: 02/11/17 23:46 Dose: 0.5 mg Melatonin (Melatonin) 3 mg PO BEDTIME PRN PRN Reason: Insomnia Last Admin: 02/09/17 21:08 Dose: 3 mg Multivitamins/Minerals (Thera M Plus) 1 tab PO DAILY [facility] Last Admin: 02/12/17 08:42 Dose: 1 tab Nystatin (Nystatin Crm) 0 gm TOP BID [facility] Last Admin: 02/12/17 21:41 Dose: 1 applic Ondansetron HCl (Zofran Odt) 4 mg PO Q6H PRN PRN Reason: Nausea/Vomiting Last Admin: 02/08/17 10:12 Dose: 4 mg Oxycodone HCl (Oxycodone) 5 mg PO Q4H PRN PRN Reason: Pain Last Admin: 02/12/17 17:52 Dose: 5 mg Oxymetazoline HCl (Afrin Original 0.05% Nasal [place]) 0 ml FEDE Q12H PRN PRN Reason: Other Last Admin: 02/11/17 20:58 Dose: 2 spray Pantoprazole Sodium (Protonix) 40 mg PO ACBREAKFAST [facility] Last Admin: 02/13/17 07:46 Dose: Not Given Senna/Docusate Sodium (Senna Plus) 1 tab PO BID PRN PRN Reason: Constipation Last Admin: 02/05/17 20:57 Dose: 1 tab Sildenafil Citrate (Revatio) 20 mg PO Q8H [facility] Last Admin: 02/12/17 23:59 Dose: 20 mg Silver Sulfadiazine (Silvadene 1% Cream 50 Gm) 0 gm TOP BID PRN PRN Reason: Wound Care Trazodone HCl (Trazodone) 50 mg PO BEDTIME [facility] Last Admin: 02/12/17 21:41 Dose: 50 mg Discontinued Medications Ampicillin (Principen) 500 mg PO Q6H [facility] Last Admin: 02/12/17 05:07 Dose: 500 mg Ampicillin (Principen) 500 mg PO TID [facility] Last Admin: 02/12/17 21:40 Dose: 500 mg Bumetanide (Bumex) 3 mg PO BID [facility] Last Admin: 02/09/17 20:59 Dose: 3 mg Bumetanide (Bumex) 2 mg IVPUSH ONETIME ONE Stop: 02/09/17 16:25 Last Admin: 02/09/17 15:39 Dose: 2 mg Dextrose/Water (Dextrose 50% In Water) 50 ml IVPUSH ONETIME ONE Stop: 02/06/17 06:15 Last Admin: 02/06/17 06:21 Dose: 50 ml Dextrose/Water (Dextrose 50% In Water) Confirm Administered Dose 50 ml .ROUTE .STK-MED ONE Stop: 02/06/17 06:17 Last Admin: 02/06/17 06:21 Dose: Not Given Dextrose/Water (Dextrose 50% In Water) 50 ml IV ONETIME ONE Stop: 02/06/17 07:46 Last Admin: 02/06/17 09:46 Dose: 50 ml Diphenhydramine HCl (Benadryl) 25 mg PO ONETIME ONE Stop: 02/12/17 07:01 Last Admin: 02/12/17 08:40 Dose: Not Given Diphenhydramine HCl (Benadryl) 50 mg IVPUSH ONETIME ONE Stop: 02/12/17 09:31 Last Admin: 02/12/17 12:45 Dose: 50 mg Gentamicin Sulfate 400 mg/ (Sodium Chloride) 160 mls @ 106 mls/hr IV Q36H [facility] Stop: 02/06/17 21:31 Last Admin: 02/06/17 20:39 Dose: 106 mls/hr Meropenem 1 gm/ Sodium (Chloride) 50 mls @ 100 mls/hr IV Q12H [facility] Last Admin: 02/08/17 10:23 Dose: 100 mls/hr Ampicillin Sodium 2 gm/ Sodium (Chloride) 100 mls @ 200 mls/hr IV Q6H [facility] Last Admin: 02/10/17 05:37 Dose: 200 mls/hr Sodium Chloride (Normal Saline) 1,000 mls @ 100 mls/hr IV ASDIRECTED [facility] Last Admin: 02/12/17 08:56 Dose: 100 mls/hr Ibuprofen (Motrin) 600 mg PO Q6H PRN PRN Reason: Pain/Fever Last Admin: 02/09/17 19:48 Dose: 600 mg Insulin Aspart (Novolog) 12 unit SUBCUT TIDMEALS [facility] Last Admin: 02/07/17 08:40 Dose: Not Given Insulin Aspart (Novolog) 0 - 5 unit SUBCUT QID PRN; Protocol PRN Reason: LOW CORRECTIONAL DOSE Last Admin: 02/11/17 08:07 Dose: 2 units Insulin Aspart (Novolog) 7 unit SUBCUT NOW ONE Stop: 02/09/17 18:01 Last Admin: 02/09/17 18:13 Dose: 7 unit Insulin Aspart (Novolog) 7 unit SUBCUT ONETIME ONE Stop: 02/10/17 11:31 Last Admin: 02/10/17 12:07 Dose: 7 units Insulin Aspart (Novolog) 7 unit SUBCUT ONETIME ONE Stop: 02/10/17 16:51 Last Admin: 02/10/17 17:14 Dose: 7 units Insulin Aspart (Novolog) 7 unit SUBCUT ONETIME ONE Stop: 02/10/17 21:51 Last Admin: 02/10/17 22:13 Dose: 7 units Insulin Aspart (Novolog) 0 unit SUBCUT QIDACANDBED [facility] PRN Reason: Protocol Last Admin: 02/12/17 07:32 Dose: Not Given Insulin Detemir (Levemir) 15 unit SUBCUT BID [facility] Last Admin: 02/07/17 09:23 Dose: Not Given Insulin Detemir (Levemir) 6 unit SUBCUT BID [facility] Stop: 02/13/17 21:00 Last Admin: 02/10/17 08:33 Dose: 6 units Methylprednisolone Sodium Succinate (Solu-Medrol) 40 mg IVPUSH Q8H [facility] Last Admin: 02/10/17 00:03 Dose: 40 mg Methylprednisolone Sodium Succinate (Solu-Medrol) 125 mg IVPUSH ONETIME ONE Stop: 02/12/17 09:31 Last Admin: 02/12/17 12:45 Dose: 125 mg Non-Formulary Medication (Darbepoetin Diego [Aranesp]) 200 mcg SUBCUT Q14D [facility] Phytonadione (Aquamephyton) 2.5 mg PO ONETIME ONE Stop: 02/11/17 10:31 Last Admin: 02/11/17 10:34 Dose: 2.5 mg Potassium Chloride (Klor-Con M20) 20 meq PO DAILY [facility] Last Admin: 02/12/17 08:41 Dose: 20 meq Sodium Polystyrene Sulfonate (Kayexalate) 30 gm PO ONETIME ONE Stop: 02/10/17 17:52 Last Admin: 02/10/17 18:23 Dose: 30 gm Warfarin Sodium (Coumadin) 10 mg PO MoTh@1300 [facility] Last Admin: 02/07/17 15:44 Dose: 10 mg Warfarin Sodium (Coumadin) 7.5 mg PO SuTuWeFrSa@1300 [facility] Last Admin: 02/08/17 14:37 Dose: 7.5 mg Warfarin Sodium (Coumadin) 7.5 mg PO ONETIME ONE Stop: 02/12/17 13:01 Last Admin: 02/12/17 14:15 Dose: 7.5 mg - Exam Quality Assessment: supplemental oxygen, urine catheter General: no acute distress, lethargic. No: alert Neck: supple Lungs: Decreased breath sounds (right lung base), Rales (few right lung base), Wheezing (rare diffuse exp wheeze ). No: Normal respiratory effort (mild increased work of breathing ) Cardiovascular: Regular Rate, Regular Rhythm, Murmurs Abdomen: bowel sounds present, soft, no tenderness, no distension Extremities: no cyanosis, edema (pitting edema both lower legs and significant pitting edema posterior thighs ) Skin: warm, dry Psy/Mental Status: other (lethargic ). No: alert - Problem List Review Problem List Initiated/Reviewed/Updated: Yes - My Orders Last 24 Hours: My Active Orders 02/12/17 09:04 Sodium Chloride 0.9% [Normal Saline] 1,000 ml IV ASDIRECTED 02/12/17 11:00 Insulin Aspart [NovoLOG] See Protocol SUBCUT QIDACANDBED 02/13/17 09:09 CXR [Chest 1V Frontal] [CR] Routine 02/13/17 09:10 Bumetanide [Bumex] 2 mg IVPUSH ONETIME ONE 02/13/17 13:00 Warfarin [Coumadin] 10 mg PO ONETIME ONE 02/14/17 05:00 BASIC METABOLIC PANEL,BMP [CHEM] Timed CBC W/O DIFF,HEMOGRAM [HEME] Timed (1) INR,PT,PROTHROMBIN TIME [COAG] Timed - Plan Plan:: ASSESSMENT AND PLAN ACUTE ON CHRONIC RESPIRATORY FAILURE WITH HYPOXIA AND HYPERCAPNIA - he has reached end-stage of his disease and appears to be essentially dependent on his noninvasive ventilation to maintain respiratory status. Fluid likely playing a role as discussed below but optimizing volume status difficult with poor kidney function. No strong evidence for pulmonary infection. Repeat chest x-ray today showed pulmonary edema. -Continue use of NIPPV as needed -Supplemental oxygen when not using NIPPV -Attempted diuresis as below -Arrange for home ventilation with Trilogy system -Supplemental oxygen as needed -Continue nebulizer therapy ACUTE ON CHRONIC RENAL FAILURE - renal function continues to decline in urine output is decreasing at this time. Bedside ultrasound today suggested volume overload and hopefully diuresis can improve his cardiac function and therefore renal perfusion. -Gentle hydration again overnight -Diuresis as below -Recheck labs in the morning -Continue to monitor renal function and urine output closely EPISTAXIS - off-and-on difficulties with epistaxis. INR is slightly subtherapeutic today. Complicated by thrombocytopenia. -Afrin as needed -INR in the morning COPD WITH COR PULMONALE - peripheral edema has increased and both bedside examination and ultrasound of the heart suggest volume overload with dilated inferior vena cava. -Trial of diuresis -Continue sildenafil ENTEROCOCCUS URINARY TRACT INFECTION - chronic indwelling Verma catheter. Moderate enterococcus growth in urine culture, may not represent true infection. I am concerned that antibiotics are contributing to his renal failure and plan to discontinue them and monitor for evidence of infection. -Discontinue antibiotics DECUBITUS ULCER - present on admission. -Continue current therapy and management DIABETES MELLITUS TYPE - glucose levels have been acceptable. 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 -Continue current management MECHANICAL AORTIC VALVE REPLACEMENT - on long-term oral anticoagulation with warfarin. current INR is slightly subtherapeutic today. -Continue warfarin today -Repeat INR in a.m. MONOCLONAL GAMMOPATHY OF UNDETERMINED SIGNIFICANCE - with associated anemia. Hemoglobin has responded well to transfusion. -If additional blood transfusions are necessary we will need to premedicate with Solu-Medrol, Benadryl and Tylenol -Hemoglobin in the morning MAINTENANCE ISSUES -DVT prophylaxis; current therapy with warfarin should provide adequate DVT prophylaxis -GI prophylaxis; continue PPI therapy -Verma catheter; chronic indwelling -Nutrition; consistent carb diet DISPOSITION - anticipate discharge to home versus to a nursing home facility after the hospital stay versus transfer to higher level of care if patient wishes to remain full code. Tato Lua M.D.
--- NOTE | 2017-02-13 09:47 | CR ---
Portable chest Comparison: 03 February 2017. Findings: The cardiac pacemaker stable with a single intact lead. There is pulmonary vascular engorg ement. There is diffuse increased interstitial markings. Small effusions are demonstrated bilaterall y. Impression: 1. CHF with pulmonary edema. The findings demonstrate interval progression.
[2017-02-13] MEDS ORDERED: Bumetanide 1 MG/4 ML MDV IVPUSH ONE ×2 (10:00→15:30)
[2017-02-13] MEDS: Aspirin 81 MG Tab.EC PO SCH (10:18)
[2017-02-13] MEDS: Gabapentin 300 MG Cap PO SCH ×2 (10:18→21:32)
[2017-02-13] MEDS: Nystatin Crm 15 GM Tube TOP SCH ×2 (10:19→21:29)
[2017-02-13] MEDS: Multivitamins with Iron/Calcium/Folic Acid/Minerals Tab PO SCH (10:19)
[2017-02-13] MEDS: Cholecalciferol (Vitamin D3) 1,000 Unit Tab PO SCH ×2 (10:19→21:32)
[2017-02-13] MEDS: Insulin Detemir 100 Units/ML 3 ML Pen SUBCUT SCH ×2 (10:28→21:33)
[2017-02-13] MEDS: Insulin Aspart 100 Units/ML 3 ML Pen SUBCUT SCH ×4 (10:28→21:33)
[2017-02-13] MEDS: Sildenafil 20 MG Tab PO SCH ×2 (11:54→17:39)
[2017-02-13] MEDS: Carvedilol 25 MG Tab PO SCH ×2 (11:55→21:28)
[2017-02-13] MEDS ORDERED: Warfarin 5 MG Tab PO ONE (13:00)
[2017-02-13] MEDS ORDERED: Warfarin 5 MG Tab ONE (17:49)
[2017-02-13] MEDS: oxyCODONE 5 MG Tab PO PRN (19:35)
[2017-02-13] MEDS: Doxazosin 4 MG Tab PO SCH (21:31)
[2017-02-13] MEDS: atorvaSTATin 10 MG Tab PO SCH (21:32)
[2017-02-13] MEDS: traZODone 50 MG Tab PO SCH (21:32)
[2017-02-13] MEDS: Sodium Chloride 0.9% 1,000 ML IV SCH (21:36)
[2017-02-14] MEDS: Sildenafil 20 MG Tab PO SCH ×4 (03:33→23:57)
[2017-02-14] MEDS: oxyCODONE 5 MG Tab PO PRN (06:16)
[2017-02-14] MEDS: Albuterol/Ipratropium 3.0-0.5 MG/3 ML Neb Soln NEB SCH ×4 (07:13→21:13)
[2017-02-14] MEDS: Pantoprazole 40 MG Tab.CR PO SCH (09:24)
[2017-02-14] MEDS: Insulin Aspart 100 Units/ML 3 ML Pen SUBCUT SCH ×4 (09:26→21:09)
[2017-02-14] MEDS: Carvedilol 25 MG Tab PO SCH ×2 (09:27→21:04)
[2017-02-14] MEDS: Aspirin 81 MG Tab.EC PO SCH (09:28)
[2017-02-14] MEDS: Gabapentin 300 MG Cap PO SCH ×2 (09:28→21:02)
[2017-02-14] MEDS: Multivitamins with Iron/Calcium/Folic Acid/Minerals Tab PO SCH (09:29)
[2017-02-14] MEDS: Nystatin Crm 15 GM Tube TOP SCH ×2 (09:29→22:43)
[2017-02-14] MEDS: Cholecalciferol (Vitamin D3) 1,000 Unit Tab PO SCH ×2 (09:29→21:02)
--- NOTE | 2017-02-14 13:51 | PCM.PN ---
- General Info Date of Service: 02/14/17 Functional Status: Reports: pain controlled. Denies: ambulating - Review of Systems General: Reports: Weakness Pulmonary: Reports: shortness of breath Systems Review Comment:: No acute events overnight. Required the noninvasive ventilation system throughout the night. Oxygenation was stable. He is able to be off the noninvasive ventilation only short periods of time before he feels very short of breath and anxiety increases. Urine output has been decreasing and creatinine has been rising. He has not been having any fevers. Lower extremity and dependent edema seem to be increasing. Had a good discussion today with Radha and his and son. We discussed the entire nature of the current situation and potential treatment options. At this point is not interested in a transfer to a higher level of care for subspecialty evaluation. He does admit today that he knows he is dying. He would like to have some time to think about alf versus home in the role of hospice. He would also like some time to think about the role of noninvasive ventilation. He is agreeable to changing his CODE STATUS to DO NOT RESUSCITATE and DO NOT INTUBATE. He is not interested in further aggressive cares from his current level. - Patient Data Vitals - most recent: Last Vital Signs Temp 35.9 C 02/14/17 11:22 Pulse 76 02/14/17 11:22 Resp 16 02/14/17 11:22 BP 103/57 L 02/14/17 11:22 Pulse Ox 97 02/14/17 11:22 Weight - most recent: 103.5 kg I&O - last 24 hours: Intake & Output 02/13/17 02/14/17 02/14/17 22:59 06:59 14:59 Intake Total 669 211 200 Output Total 350 400 Balance 319 -189 200 Lab Results last 24 hrs: Laboratory Results - last 24 hr 02/14/17 02/14/17 02/14/17 Range/Units 05:00 05:00 05:00 WBC 5.9 (4.5-11.0) K/uL RBC 3.14 L (4.30-5.90) M/uL Hgb 9.0 L (12.0-15.0) g/dL Hct 29.8 L (40.0-54.0) % MCV 95 (80-98) fL MCH 29 (27-31) pg MCHC 30 L (32-36) % Plt Count 89 L (150-400) K/uL PT 23.1 H (9.5-12.0) sec INR 2.13 H (0.80-1.20) Sodium 136 L (140-148) mmol/L Potassium 4.8 (3.6-5.2) mmol/L Chloride 98 L (100-108) mmol/L Carbon Dioxide 33 H (21-32) mmol/L Anion Gap 9.8 (5.0-14.0) mmol/L BUN 124 H* (7-18) mg/dL Creatinine 3.6 H* (0.8-1.3) mg/dL Est Cr Clr Drug Dosing 19.46 mL/min Estimated GFR (MDRD) 17 L (>60) Glucose 149 H (74-106) mg/dL Calcium 7.7 L (8.5-10.1) mg/dL Med Orders - Current: Current Medications Acetaminophen (Tylenol) 650 mg PO Q4H PRN PRN Reason: pain Last Admin: 02/10/17 23:55 Dose: 650 mg Albuterol (Proventil Neb Soln) 2.5 mg NEB Q4H PRN PRN Reason: Dyspnea Last Admin: 02/12/17 10:33 Dose: 2.5 mg Albuterol/Ipratropium (Duoneb 3.0-0.5 Mg/3 Ml) 3 ml NEB QIDRT [facility] Last Admin: 02/14/17 10:37 Dose: 3 ml Aspirin (Halfprin) 81 mg PO DAILY [facility] Last Admin: 02/14/17 09:28 Dose: 81 mg Atorvastatin Calcium (Lipitor) 10 mg PO BEDTIME [facility] Last Admin: 02/13/17 21:32 Dose: 10 mg Carvedilol (Coreg) 25 mg PO BID [facility] Last Admin: 02/14/17 09:27 Dose: 25 mg Cholecalciferol (Vitamin D3) 2,000 units PO BID [facility] Last Admin: 02/14/17 09:29 Dose: 2,000 units Dextrose (Glutose 15) 15 gm PO ASDIRECTED PRN PRN Reason: HYPOGLYCEMIA Dextrose/Water (Dextrose 50% In Water) 50 ml IVPUSH ASDIRECTED PRN PRN Reason: HYPOGLYCEMIA Doxazosin Mesylate (Cardura) 2 mg PO BEDTIME [facility] Last Admin: 02/13/17 21:31 Dose: 2 mg Gabapentin (Neurontin) 600 mg PO BID [facility] Last Admin: 02/14/17 09:28 Dose: 600 mg Glucagon (Glucagen) 1 mg IM ASDIRECTED PRN PRN Reason: HYPOGLYCEMIA Sodium Chloride (Normal Saline) 1,000 mls @ 50 mls/hr IV ASDIRECTED [facility] Last Admin: 02/13/17 21:36 Dose: 50 mls/hr Insulin Aspart (Novolog) 0 unit SUBCUT QIDACANDBED [facility] PRN Reason: Protocol Last Admin: 02/14/17 09:26 Dose: Not Given Lorazepam (Ativan) 0.5 mg IVPUSH Q2H PRN PRN Reason: Anxiety Last Admin: 02/11/17 23:46 Dose: 0.5 mg Melatonin (Melatonin) 3 mg PO BEDTIME PRN PRN Reason: Insomnia Last Admin: 02/09/17 21:08 Dose: 3 mg Multivitamins/Minerals (Thera M Plus) 1 tab PO DAILY [facility] Last Admin: 02/14/17 09:29 Dose: 1 tab Nystatin (Nystatin Crm) 0 gm TOP BID [facility] Last Admin: 02/14/17 09:29 Dose: 1 applic Ondansetron HCl (Zofran Odt) 4 mg PO Q6H PRN PRN Reason: Nausea/Vomiting Last Admin: 02/08/17 10:12 Dose: 4 mg Oxycodone HCl (Oxycodone) 5 mg PO Q4H PRN PRN Reason: Pain Last Admin: 02/14/17 06:16 Dose: 5 mg Oxymetazoline HCl (Afrin Original 0.05% Nasal [place]) 0 ml FEDE Q12H PRN PRN Reason: Other Last Admin: 02/11/17 20:58 Dose: 2 spray Pantoprazole Sodium (Protonix) 40 mg PO ACBREAKFAST [facility] Last Admin: 02/14/17 09:24 Dose: 40 mg Senna/Docusate Sodium (Senna Plus) 1 tab PO BID PRN PRN Reason: Constipation Last Admin: 02/05/17 20:57 Dose: 1 tab Sildenafil Citrate (Revatio) 20 mg PO Q8H [facility] Last Admin: 02/14/17 09:27 Dose: 20 mg Silver Sulfadiazine (Silvadene 1% Cream 50 Gm) 0 gm TOP BID PRN PRN Reason: Wound Care Trazodone HCl (Trazodone) 50 mg PO BEDTIME [facility] Last Admin: 02/13/17 21:32 Dose: 50 mg Discontinued Medications Ampicillin (Principen) 500 mg PO Q6H [facility] Last Admin: 02/12/17 05:07 Dose: 500 mg Ampicillin (Principen) 500 mg PO TID [facility] Last Admin: 02/12/17 21:40 Dose: 500 mg Bumetanide (Bumex) 3 mg PO BID [facility] Last Admin: 02/09/17 20:59 Dose: 3 mg Bumetanide (Bumex) 2 mg IVPUSH ONETIME ONE Stop: 02/09/17 16:25 Last Admin: 02/09/17 15:39 Dose: 2 mg Bumetanide (Bumex) 2 mg IVPUSH ONETIME ONE Stop: 02/13/17 10:01 Last Admin: 02/13/17 11:53 Dose: 2 mg Bumetanide (Bumex) 4 mg IVPUSH ONETIME ONE Stop: 02/13/17 15:31 Last Admin: 02/13/17 15:57 Dose: 4 mg Dextrose/Water (Dextrose 50% In Water) 50 ml IVPUSH ONETIME ONE Stop: 02/06/17 06:15 Last Admin: 02/06/17 06:21 Dose: 50 ml Dextrose/Water (Dextrose 50% In Water) Confirm Administered Dose 50 ml .ROUTE .STK-MED ONE Stop: 02/06/17 06:17 Last Admin: 02/06/17 06:21 Dose: Not Given Dextrose/Water (Dextrose 50% In Water) 50 ml IV ONETIME ONE Stop: 02/06/17 07:46 Last Admin: 02/06/17 09:46 Dose: 50 ml Diphenhydramine HCl (Benadryl) 25 mg PO ONETIME ONE Stop: 02/12/17 07:01 Last Admin: 02/12/17 08:40 Dose: Not Given Diphenhydramine HCl (Benadryl) 50 mg IVPUSH ONETIME ONE Stop: 02/12/17 09:31 Last Admin: 02/12/17 12:45 Dose: 50 mg Gentamicin Sulfate 400 mg/ (Sodium Chloride) 160 mls @ 106 mls/hr IV Q36H [facility] Stop: 02/06/17 21:31 Last Admin: 02/06/17 20:39 Dose: 106 mls/hr Meropenem 1 gm/ Sodium (Chloride) 50 mls @ 100 mls/hr IV Q12H [facility] Last Admin: 02/08/17 10:23 Dose: 100 mls/hr Ampicillin Sodium 2 gm/ Sodium (Chloride) 100 mls @ 200 mls/hr IV Q6H [facility] Last Admin: 02/10/17 05:37 Dose: 200 mls/hr Sodium Chloride (Normal Saline) 1,000 mls @ 100 mls/hr IV ASDIRECTED [facility] Last Admin: 02/12/17 08:56 Dose: 100 mls/hr Ibuprofen (Motrin) 600 mg PO Q6H PRN PRN Reason: Pain/Fever Last Admin: 02/09/17 19:48 Dose: 600 mg Insulin Aspart (Novolog) 12 unit SUBCUT TIDMEALS [facility] Last Admin: 02/07/17 08:40 Dose: Not Given Insulin Aspart (Novolog) 0 - 5 unit SUBCUT QID PRN; Protocol PRN Reason: LOW CORRECTIONAL DOSE Last Admin: 02/11/17 08:07 Dose: 2 units Insulin Aspart (Novolog) 7 unit SUBCUT NOW ONE Stop: 02/09/17 18:01 Last Admin: 02/09/17 18:13 Dose: 7 unit Insulin Aspart (Novolog) 7 unit SUBCUT ONETIME ONE Stop: 02/10/17 11:31 Last Admin: 02/10/17 12:07 Dose: 7 units Insulin Aspart (Novolog) 7 unit SUBCUT ONETIME ONE Stop: 02/10/17 16:51 Last Admin: 02/10/17 17:14 Dose: 7 units Insulin Aspart (Novolog) 7 unit SUBCUT ONETIME ONE Stop: 02/10/17 21:51 Last Admin: 02/10/17 22:13 Dose: 7 units Insulin Aspart (Novolog) 0 unit SUBCUT QIDACANDBED [facility] PRN Reason: Protocol Last Admin: 02/12/17 07:32 Dose: Not Given Insulin Detemir (Levemir) 15 unit SUBCUT BID [facility] Last Admin: 02/07/17 09:23 Dose: Not Given Insulin Detemir (Levemir) 6 unit SUBCUT BID [facility] Stop: 02/13/17 21:00 Last Admin: 02/10/17 08:33 Dose: 6 units Insulin Detemir (Levemir) 8 unit SUBCUT BID [facility] Stop: 02/13/17 21:00 Last Admin: 02/13/17 21:33 Dose: 8 units Lorazepam (Ativan) 0.5 mg PO Q2H PRN PRN Reason: Anxiety Last Admin: 02/12/17 10:22 Dose: 0.5 mg Methylprednisolone Sodium Succinate (Solu-Medrol) 40 mg IVPUSH Q8H [facility] Last Admin: 02/10/17 00:03 Dose: 40 mg Methylprednisolone Sodium Succinate (Solu-Medrol) 125 mg IVPUSH ONETIME ONE Stop: 02/12/17 09:31 Last Admin: 02/12/17 12:45 Dose: 125 mg Non-Formulary Medication (Darbepoetin Diego [Aranesp]) 200 mcg SUBCUT Q14D [facility] Phytonadione (Aquamephyton) 2.5 mg PO ONETIME ONE Stop: 02/11/17 10:31 Last Admin: 02/11/17 10:34 Dose: 2.5 mg Potassium Chloride (Klor-Con M20) 20 meq PO DAILY [facility] Last Admin: 02/12/17 08:41 Dose: 20 meq Sodium Polystyrene Sulfonate (Kayexalate) 30 gm PO ONETIME ONE Stop: 02/10/17 17:52 Last Admin: 02/10/17 18:23 Dose: 30 gm Warfarin Sodium (Coumadin) 10 mg PO MoTh@1300 [facility] Last Admin: 02/07/17 15:44 Dose: 10 mg Warfarin Sodium (Coumadin) 7.5 mg PO SuTuWeFrSa@1300 [facility] Last Admin: 02/08/17 14:37 Dose: 7.5 mg Warfarin Sodium (Coumadin) 7.5 mg PO ONETIME ONE Stop: 02/12/17 13:01 Last Admin: 02/12/17 14:15 Dose: 7.5 mg Warfarin Sodium (Coumadin) 10 mg PO ONETIME ONE Stop: 02/13/17 13:01 Last Admin: 02/13/17 17:50 Dose: 10 mg Warfarin Sodium (Coumadin) Confirm Administered Dose 10 mg .ROUTE .STK-MED ONE Stop: 02/13/17 17:50 Last Admin: 02/13/17 17:56 Dose: Not Given - Exam Quality Assessment: supplemental oxygen, urine catheter General: alert, oriented, cooperative, no acute distress Neck: supple Lungs: Normal respiratory effort, Decreased breath sounds (both bases), Wheezing (mild diffuse exp wheezing ) Cardiovascular: Regular Rate, Regular Rhythm, Murmurs Abdomen: soft, no distension Extremities: no cyanosis, edema (pitting edema both legs all the way to the waist ) Skin: warm, dry Psy/Mental Status: alert, normal affect - Problem List Review Problem List Initiated/Reviewed/Updated: Yes - My Orders Last 24 Hours: My Active Orders 02/14/17 13:46 Resuscitation Status Routine 02/14/17 13:48 LORazepam [Ativan ORAL Concentrate 1MG/0.5 ML U/D] 1 mg PO Q2H PRN Morphine [Morphine 10 MG/0.5 ML Oral Syringe] 10 mg PO Q2H PRN 02/14/17 14:00 Warfarin [Coumadin] 7.5 mg PO ONETIME ONE 02/15/17 05:00 BASIC METABOLIC PANEL,BMP [CHEM] Timed CBC W/O DIFF,HEMOGRAM [HEME] Timed (1) INR,PT,PROTHROMBIN TIME [COAG] Timed - Plan Plan:: ASSESSMENT AND PLAN ACUTE ON CHRONIC RESPIRATORY FAILURE WITH HYPOXIA AND HYPERCAPNIA - he has reached end-stage of his disease and appears to be essentially dependent on his noninvasive ventilation to maintain respiratory status. Fluid likely playing a role as discussed below but optimizing volume status difficult with poor kidney function. No strong evidence for pulmonary infection. Increasing attempts at diuresis have not yielded any benefit and his kidney function continues to decline. He is agreeable to DO NOT RESUSCITATE and DO NOT INTUBATE status. May consider comfort care approach, would like some time to think about it. -Continue use of NIPPV as needed -Supplemental oxygen when not using NIPPV -Morphine as needed for air hunger and lorazepam for anxiety -Supplemental oxygen as needed -Continue nebulizer therapy ACUTE ON CHRONIC RENAL FAILURE - renal function has declined even further despite aggressive attempts at diuresis. Bedside examination suggest significant volume overload but he is not responding to IV diuresis. -Gentle IV fluids -Hold off on diuresis -Recheck labs in the morning EPISTAXIS - off-and-on difficulties with epistaxis. INR is therapeutic today. Complicated by thrombocytopenia. -Afrin as needed -INR in the morning COPD WITH COR PULMONALE - peripheral edema has increased and both bedside examination and ultrasound of the heart suggest volume overload with dilated inferior vena cava. -Hold on diuretics today -Continue sildenafil ENTEROCOCCUS URINARY TRACT INFECTION - chronic indwelling Verma catheter. Moderate enterococcus growth in urine culture, may not represent true infection. I am concerned that antibiotics are contributing to his renal failure and plan to discontinue them and monitor for evidence of infection. -Discontinue antibiotics DECUBITUS ULCER - present on admission. -Continue current therapy and management DIABETES MELLITUS TYPE - glucose levels have been acceptable. 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 -Continue current management MECHANICAL AORTIC VALVE REPLACEMENT - on long-term oral anticoagulation with warfarin. current INR is slightly subtherapeutic today. -Continue warfarin today -Repeat INR in a.m. MONOCLONAL GAMMOPATHY OF UNDETERMINED SIGNIFICANCE - with associated anemia. Hemoglobin stable. -If additional blood transfusions are necessary we will need to premedicate with Solu-Medrol, Benadryl and Tylenol -Hemoglobin in the morning MAINTENANCE ISSUES -DVT prophylaxis; current therapy with warfarin should provide adequate DVT prophylaxis -GI prophylaxis; continue PPI therapy -Verma catheter; chronic indwelling -Nutrition; consistent carb diet DISPOSITION - anticipate discharge to home versus to a intermediate facility after the hospital stay versus home with home care or hospice. Tato Lua M.D.
[2017-02-14] MEDS ORDERED: Warfarin 5 MG Tab PO ONE (14:00)
[2017-02-14] MEDS: Morphine 10 MG/0.5 ML Oral Syringe PO PRN ×3 (14:52→23:56)
[2017-02-14] MEDS: LORazepam ORAL Concentrate 1MG/0.5ML U/D PO PRN ×2 (15:57→21:11)
[2017-02-14] MEDS: Sodium Chloride 0.9% 1,000 ML IV SCH (16:32)
[2017-02-14] MEDS: atorvaSTATin 10 MG Tab PO SCH (21:02)
[2017-02-14] MEDS: traZODone 50 MG Tab PO SCH (21:02)
[2017-02-14] MEDS: Doxazosin 4 MG Tab PO SCH (21:04)
[2017-02-15] MEDS: Morphine 10 MG/0.5 ML Oral Syringe PO PRN ×2 (06:20→12:10)
[2017-02-15] MEDS: Albuterol/Ipratropium 3.0-0.5 MG/3 ML Neb Soln NEB SCH ×4 (07:19→21:13)
[2017-02-15] MEDS: Pantoprazole 40 MG Tab.CR PO SCH ×2 (08:17→10:49)
[2017-02-15] MEDS: Insulin Aspart 100 Units/ML 3 ML Pen SUBCUT SCH ×4 (10:20→21:18)
[2017-02-15] MEDS: Nystatin Crm 15 GM Tube TOP SCH ×2 (10:21→21:15)
[2017-02-15] MEDS: Aspirin 81 MG Tab.EC PO SCH (10:49)
[2017-02-15] MEDS: Sildenafil 20 MG Tab PO SCH ×2 (10:49→17:38)
[2017-02-15] MEDS: Carvedilol 25 MG Tab PO SCH ×3 (10:49→22:54)
[2017-02-15] MEDS: Gabapentin 300 MG Cap PO SCH ×3 (10:49→22:54)
[2017-02-15] MEDS: Cholecalciferol (Vitamin D3) 1,000 Unit Tab PO SCH ×3 (10:50→22:55)
[2017-02-15] MEDS: Multivitamins with Iron/Calcium/Folic Acid/Minerals Tab PO SCH (10:50)
[2017-02-15] MEDS: Sodium Chloride 0.9% 1,000 ML IV SCH (12:24)
--- NOTE | 2017-02-15 16:17 | PCM.PN ---
- General Info Date of Service: 02/15/17 Functional Status: Reports: pain controlled, tolerating diet, urinating. Denies : ambulating - Review of Systems General: Reports: Weakness Pulmonary: Reports: shortness of breath Systems Review Comment:: No acute events overnight. Has remained mostly dependent on his noninvasive ventilation. He was on it most of the night and off for only a short while this morning. He does report some relief of air hunger and anxiety with the morphine and lorazepam. He has not been having any fevers. Urine output has been borderline. Creatinine seems to have stabilized slightly compared to yesterday and dale to only 3.7 from 3.6. Hemoglobin has been stable with no recurrence of his nosebleed. - Patient Data Vitals - most recent: Last Vital Signs Temp 36.4 C 02/15/17 15:28 Pulse 75 02/15/17 15:28 Resp 16 02/15/17 15:28 BP 132/68 02/15/17 15:28 Pulse Ox 98 02/15/17 15:28 Weight - most recent: 105.9 kg I&O - last 24 hours: Intake & Output 02/15/17 02/15/17 02/15/17 06:59 14:59 22:59 Intake Total 621 100 Output Total 350 Balance 271 100 Lab Results last 24 hrs: Laboratory Results - last 24 hr 02/15/17 02/15/17 02/15/17 Range/Units 05:46 05:46 05:46 WBC 7.4 (4.5-11.0) K/uL RBC 3.17 L (4.30-5.90) M/uL Hgb 9.3 L (12.0-15.0) g/dL Hct 30.3 L (40.0-54.0) % MCV 96 (80-98) fL MCH 29 (27-31) pg MCHC 31 L (32-36) % Plt Count 83 L (150-400) K/uL PT 31.0 H (9.5-12.0) sec INR 2.83 H (0.80-1.20) Sodium 135 L (140-148) mmol/L Potassium 4.9 (3.6-5.2) mmol/L Chloride 99 L (100-108) mmol/L Carbon Dioxide 32 (21-32) mmol/L Anion Gap 8.9 (5.0-14.0) mmol/L BUN 130 H* (7-18) mg/dL Creatinine 3.7 H* (0.8-1.3) mg/dL Est Cr Clr Drug Dosing 18.94 mL/min Estimated GFR (MDRD) 16 L (>60) Glucose 185 H (74-106) mg/dL Calcium 7.8 L (8.5-10.1) mg/dL Med Orders - Current: Current Medications Acetaminophen (Tylenol) 650 mg PO Q4H PRN PRN Reason: pain Last Admin: 02/10/17 23:55 Dose: 650 mg Albuterol (Proventil Neb Soln) 2.5 mg NEB Q4H PRN PRN Reason: Dyspnea Last Admin: 02/12/17 10:33 Dose: 2.5 mg Albuterol/Ipratropium (Duoneb 3.0-0.5 Mg/3 Ml) 3 ml NEB QIDRT [facility] Last Admin: 02/15/17 14:39 Dose: 3 ml Aspirin (Halfprin) 81 mg PO DAILY [facility] Last Admin: 02/15/17 10:49 Dose: 81 mg Atorvastatin Calcium (Lipitor) 10 mg PO BEDTIME [facility] Last Admin: 02/14/17 21:02 Dose: 10 mg Carvedilol (Coreg) 25 mg PO BID [facility] Last Admin: 02/15/17 10:49 Dose: 25 mg Cholecalciferol (Vitamin D3) 2,000 units PO BID [facility] Last Admin: 02/15/17 10:50 Dose: 2,000 units Dextrose (Glutose 15) 15 gm PO ASDIRECTED PRN PRN Reason: HYPOGLYCEMIA Dextrose/Water (Dextrose 50% In Water) 50 ml IVPUSH ASDIRECTED PRN PRN Reason: HYPOGLYCEMIA Doxazosin Mesylate (Cardura) 2 mg PO BEDTIME [facility] Last Admin: 02/14/17 21:04 Dose: 2 mg Gabapentin (Neurontin) 600 mg PO BID [facility] Last Admin: 02/15/17 10:49 Dose: 600 mg Glucagon (Glucagen) 1 mg IM ASDIRECTED PRN PRN Reason: HYPOGLYCEMIA Sodium Chloride (Normal Saline) 1,000 mls @ 50 mls/hr IV ASDIRECTED [facility] Last Admin: 02/15/17 12:24 Dose: 50 mls/hr Insulin Aspart (Novolog) 0 unit SUBCUT QIDACANDBED [facility] PRN Reason: Protocol Last Admin: 02/15/17 12:02 Dose: 4 units Lorazepam (Ativan) 0.5 mg IVPUSH Q2H PRN PRN Reason: Anxiety Last Admin: 02/11/17 23:46 Dose: 0.5 mg Lorazepam (Ativan Oral Concentrate 1mg/0.5 Ml U/D) 1 mg PO Q2H PRN PRN Reason: Anxiety Last Admin: 02/14/17 21:11 Dose: 1 mg Melatonin (Melatonin) 3 mg PO BEDTIME PRN PRN Reason: Insomnia Last Admin: 02/09/17 21:08 Dose: 3 mg Morphine Sulfate (Morphine 10 Mg/0.5 Ml Oral Syringe) 10 mg PO Q2H PRN PRN Reason: Pain/Air Hunger Last Admin: 02/15/17 12:10 Dose: 10 mg Multivitamins/Minerals (Thera M Plus) 1 tab PO DAILY [facility] Last Admin: 02/15/17 10:50 Dose: 1 tab Nystatin (Nystatin Crm) 0 gm TOP BID [facility] Last Admin: 02/15/17 10:21 Dose: Not Given Ondansetron HCl (Zofran Odt) 4 mg PO Q6H PRN PRN Reason: Nausea/Vomiting Last Admin: 02/08/17 10:12 Dose: 4 mg Oxycodone HCl (Oxycodone) 5 mg PO Q4H PRN PRN Reason: Pain Last Admin: 02/14/17 06:16 Dose: 5 mg Oxymetazoline HCl (Afrin Original 0.05% Nasal [place]) 0 ml FEDE Q12H PRN PRN Reason: Other Last Admin: 02/11/17 20:58 Dose: 2 spray Pantoprazole Sodium (Protonix) 40 mg PO ACBREAKFAST [facility] Last Admin: 02/15/17 10:49 Dose: 40 mg Senna/Docusate Sodium (Senna Plus) 1 tab PO BID PRN PRN Reason: Constipation Last Admin: 02/05/17 20:57 Dose: 1 tab Sildenafil Citrate (Revatio) 20 mg PO Q8H [facility] Last Admin: 02/15/17 10:49 Dose: 20 mg Silver Sulfadiazine (Silvadene 1% Cream 50 Gm) 0 gm TOP BID PRN PRN Reason: Wound Care Trazodone HCl (Trazodone) 50 mg PO BEDTIME [facility] Last Admin: 02/14/17 21:02 Dose: 50 mg Discontinued Medications Ampicillin (Principen) 500 mg PO Q6H [facility] Last Admin: 02/12/17 05:07 Dose: 500 mg Ampicillin (Principen) 500 mg PO TID [facility] Last Admin: 02/12/17 21:40 Dose: 500 mg Bumetanide (Bumex) 3 mg PO BID [facility] Last Admin: 02/09/17 20:59 Dose: 3 mg Bumetanide (Bumex) 2 mg IVPUSH ONETIME ONE Stop: 02/09/17 16:25 Last Admin: 02/09/17 15:39 Dose: 2 mg Bumetanide (Bumex) 2 mg IVPUSH ONETIME ONE Stop: 02/13/17 10:01 Last Admin: 02/13/17 11:53 Dose: 2 mg Bumetanide (Bumex) 4 mg IVPUSH ONETIME ONE Stop: 02/13/17 15:31 Last Admin: 02/13/17 15:57 Dose: 4 mg Dextrose/Water (Dextrose 50% In Water) 50 ml IVPUSH ONETIME ONE Stop: 02/06/17 06:15 Last Admin: 02/06/17 06:21 Dose: 50 ml Dextrose/Water (Dextrose 50% In Water) Confirm Administered Dose 50 ml .ROUTE .STK-MED ONE Stop: 02/06/17 06:17 Last Admin: 02/06/17 06:21 Dose: Not Given Dextrose/Water (Dextrose 50% In Water) 50 ml IV ONETIME ONE Stop: 02/06/17 07:46 Last Admin: 02/06/17 09:46 Dose: 50 ml Diphenhydramine HCl (Benadryl) 25 mg PO ONETIME ONE Stop: 02/12/17 07:01 Last Admin: 02/12/17 08:40 Dose: Not Given Diphenhydramine HCl (Benadryl) 50 mg IVPUSH ONETIME ONE Stop: 02/12/17 09:31 Last Admin: 02/12/17 12:45 Dose: 50 mg Gentamicin Sulfate 400 mg/ (Sodium Chloride) 160 mls @ 106 mls/hr IV Q36H [facility] Stop: 02/06/17 21:31 Last Admin: 02/06/17 20:39 Dose: 106 mls/hr Meropenem 1 gm/ Sodium (Chloride) 50 mls @ 100 mls/hr IV Q12H [facility] Last Admin: 02/08/17 10:23 Dose: 100 mls/hr Ampicillin Sodium 2 gm/ Sodium (Chloride) 100 mls @ 200 mls/hr IV Q6H [facility] Last Admin: 02/10/17 05:37 Dose: 200 mls/hr Sodium Chloride (Normal Saline) 1,000 mls @ 100 mls/hr IV ASDIRECTED [facility] Last Admin: 02/12/17 08:56 Dose: 100 mls/hr Ibuprofen (Motrin) 600 mg PO Q6H PRN PRN Reason: Pain/Fever Last Admin: 02/09/17 19:48 Dose: 600 mg Insulin Aspart (Novolog) 12 unit SUBCUT TIDMEALS [facility] Last Admin: 02/07/17 08:40 Dose: Not Given Insulin Aspart (Novolog) 0 - 5 unit SUBCUT QID PRN; Protocol PRN Reason: LOW CORRECTIONAL DOSE Last Admin: 02/11/17 08:07 Dose: 2 units Insulin Aspart (Novolog) 7 unit SUBCUT NOW ONE Stop: 02/09/17 18:01 Last Admin: 02/09/17 18:13 Dose: 7 unit Insulin Aspart (Novolog) 7 unit SUBCUT ONETIME ONE Stop: 02/10/17 11:31 Last Admin: 02/10/17 12:07 Dose: 7 units Insulin Aspart (Novolog) 7 unit SUBCUT ONETIME ONE Stop: 02/10/17 16:51 Last Admin: 02/10/17 17:14 Dose: 7 units Insulin Aspart (Novolog) 7 unit SUBCUT ONETIME ONE Stop: 02/10/17 21:51 Last Admin: 02/10/17 22:13 Dose: 7 units Insulin Aspart (Novolog) 0 unit SUBCUT QIDACANDBED [facility] PRN Reason: Protocol Last Admin: 02/12/17 07:32 Dose: Not Given Insulin Detemir (Levemir) 15 unit SUBCUT BID [facility] Last Admin: 02/07/17 09:23 Dose: Not Given Insulin Detemir (Levemir) 6 unit SUBCUT BID [facility] Stop: 02/13/17 21:00 Last Admin: 02/10/17 08:33 Dose: 6 units Insulin Detemir (Levemir) 8 unit SUBCUT BID [facility] Stop: 02/13/17 21:00 Last Admin: 02/13/17 21:33 Dose: 8 units Lorazepam (Ativan) 0.5 mg PO Q2H PRN PRN Reason: Anxiety Last Admin: 02/12/17 10:22 Dose: 0.5 mg Methylprednisolone Sodium Succinate (Solu-Medrol) 40 mg IVPUSH Q8H [facility] Last Admin: 02/10/17 00:03 Dose: 40 mg Methylprednisolone Sodium Succinate (Solu-Medrol) 125 mg IVPUSH ONETIME ONE Stop: 02/12/17 09:31 Last Admin: 02/12/17 12:45 Dose: 125 mg Non-Formulary Medication (Darbepoetin Diego [Aranesp]) 200 mcg SUBCUT Q14D [facility] Phytonadione (Aquamephyton) 2.5 mg PO ONETIME ONE Stop: 02/11/17 10:31 Last Admin: 02/11/17 10:34 Dose: 2.5 mg Potassium Chloride (Klor-Con M20) 20 meq PO DAILY [facility] Last Admin: 02/12/17 08:41 Dose: 20 meq Sodium Polystyrene Sulfonate (Kayexalate) 30 gm PO ONETIME ONE Stop: 02/10/17 17:52 Last Admin: 02/10/17 18:23 Dose: 30 gm Warfarin Sodium (Coumadin) 10 mg PO [id number]@1300 [facility] Last Admin: 02/07/17 15:44 Dose: 10 mg Warfarin Sodium (Coumadin) 7.5 mg PO [id number]@1300 [facility] Last Admin: 02/08/17 14:37 Dose: 7.5 mg Warfarin Sodium (Coumadin) 7.5 mg PO ONETIME ONE Stop: 02/12/17 13:01 Last Admin: 02/12/17 14:15 Dose: 7.5 mg Warfarin Sodium (Coumadin) 10 mg PO ONETIME ONE Stop: 02/13/17 13:01 Last Admin: 02/13/17 17:50 Dose: 10 mg Warfarin Sodium (Coumadin) Confirm Administered Dose 10 mg .ROUTE .STK-MED ONE Stop: 02/13/17 17:50 Last Admin: 02/13/17 17:56 Dose: Not Given Warfarin Sodium (Coumadin) 7.5 mg PO ONETIME ONE Stop: 02/14/17 14:01 Last Admin: 02/14/17 14:32 Dose: 7.5 mg - Exam Quality Assessment: supplemental oxygen, urine catheter General: alert, oriented, cooperative, mild distress HEENT: Pupils equal Neck: supple Lungs: Decreased breath sounds. No: Wheezing Cardiovascular: Regular Rate, Regular Rhythm, Murmurs Abdomen: soft, no distension Extremities: no cyanosis, edema (pitting edema from feet to waist bilaterally ) Skin: warm, dry Psy/Mental Status: alert, normal affect, other (lethargic but communicative) - Problem List Review Problem List Initiated/Reviewed/Updated: Yes - Plan Plan:: ASSESSMENT AND PLAN ACUTE ON CHRONIC RESPIRATORY FAILURE WITH HYPOXIA AND HYPERCAPNIA - he has reached end-stage of his disease and appears to be essentially dependent on his noninvasive ventilation to maintain respiratory status. Cor pulmonale complicating the picture and the diuresis achievable because of acute kidney injury. Patient is now DO NOT INTUBATE and DO NOT RESUSCITATE. We are moving more towards comfort at this time. He is still contemplating the level of care he would like to receive. -Continue use of NIPPV as needed -Supplemental oxygen when not using NIPPV -Morphine as needed for air hunger and lorazepam for anxiety -Supplemental oxygen as needed -Continue nebulizer therapy ACUTE ON CHRONIC RENAL FAILURE - renal function has continued to decline. Has not responded to diuretics other than with worsening kidney function. -Gentle IV fluids -Continue to hold diuresis -Recheck labs in the morning EPISTAXIS - off-and-on difficulties with epistaxis. INR is therapeutic today. Complicated by thrombocytopenia. -Afrin as needed -INR in the morning COPD WITH COR PULMONALE - peripheral edema has continued to progress and is not responding to diuresis. -Hold on diuretics today -Continue sildenafil ENTEROCOCCUS URINARY TRACT INFECTION - chronic indwelling Verma catheter. Moderate enterococcus growth in urine culture, may not represent true infection. -Antibiotics discontinued DECUBITUS ULCER - present on admission. Treatment complicated by bedbound status. -Continue current therapy and management DIABETES MELLITUS TYPE - glucose levels have been acceptable. 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 -Continue current management MECHANICAL AORTIC VALVE REPLACEMENT - on long-term oral anticoagulation with warfarin. current INR is slightly subtherapeutic today. -Hold warfarin today -Repeat INR in a.m. MONOCLONAL GAMMOPATHY OF UNDETERMINED SIGNIFICANCE - with associated anemia. Hemoglobin stable. -If additional blood transfusions are necessary we will need to premedicate with Solu-Medrol, Benadryl and Tylenol -Hemoglobin in the morning MAINTENANCE ISSUES -DVT prophylaxis; current therapy with warfarin should provide adequate DVT prophylaxis -GI prophylaxis; continue PPI therapy -Verma catheter; chronic indwelling -Nutrition; consistent carb diet DISPOSITION - anticipate discharge to home versus to a shelter facility after the hospital stay versus home with home care or hospice. Tato Lua M.D.
--- NOTE | 2017-02-15 20:29 | PCM.SN ---
- Free Text/Narrative Note: time: 20:25 call from [address] [place] [address], Mr. Peacock is having pruritus from Morphine. request Benadryl o: reaction to Morphine; rash and pruritus a; medication reaction to Morphine p; stop Morphine -start Dilaudid 0.5mg to 1 mg IV every 1 hours as needed for comfort -Benadryl 25mg Iv every 4 to 6 hours as needed for pruritus -continue present plan of care
[2017-02-15] MEDS: diphenhydrAMINE 50 MG/ML SDV IVPUSH PRN (21:13)
[2017-02-15] MEDS: traZODone 50 MG Tab PO SCH ×2 (21:15→22:54)
[2017-02-15] MEDS: atorvaSTATin 10 MG Tab PO SCH ×2 (21:16→22:54)
[2017-02-15] MEDS: Doxazosin 4 MG Tab PO SCH ×2 (21:18→22:54)
[2017-02-16] MEDS: Sildenafil 20 MG Tab PO SCH ×4 (00:08→23:19)
[2017-02-16] MEDS: diphenhydrAMINE 50 MG/ML SDV IVPUSH PRN ×3 (02:56→18:28)
[2017-02-16] MEDS: Albuterol/Ipratropium 3.0-0.5 MG/3 ML Neb Soln NEB SCH ×4 (06:57→21:39)
[2017-02-16] MEDS: Sodium Chloride 0.9% 1,000 ML IV SCH (07:49)
--- NOTE | 2017-02-16 10:28 | PCM.PN ---
- General Info Date of Service: 02/16/17 Functional Status: Reports: urinating - Review of Systems General: Reports: Weakness Systems Review Comment:: Patient is very somnolent this morning and does not participate in the discussion. He is able to mumble a few words but I cannot understand them. He has been on the noninvasive ventilation overnight and has not been off as of yet today. Oxygenation has been declining. Edema has been increasing and now involves the upper extremities. Urine output has been trailing off. Family has been updated about the decline. They're notifying other family members who may want to come visit before he passes. - Patient Data Vitals - most recent: Last Vital Signs Temp 36.1 C 02/16/17 07:00 Pulse 76 02/16/17 07:00 Resp 10 L 02/16/17 07:00 BP 108/59 L 02/16/17 07:00 Pulse Ox 95 02/16/17 07:00 Weight - most recent: 102.2 kg I&O - last 24 hours: Intake & Output 02/15/17 02/16/17 02/16/17 22:59 06:59 14:59 Intake Total 240 843 Output Total 275 250 Balance -35 593 Med Orders - Current: Current Medications Acetaminophen (Tylenol) 650 mg PO Q4H PRN PRN Reason: pain Last Admin: 02/10/17 23:55 Dose: 650 mg Albuterol (Proventil Neb Soln) 2.5 mg NEB Q4H PRN PRN Reason: Dyspnea Last Admin: 02/12/17 10:33 Dose: 2.5 mg Albuterol/Ipratropium (Duoneb 3.0-0.5 Mg/3 Ml) 3 ml NEB QIDRT COUNTS INCLUDE 234 BEDS AT THE [facility] Last Admin: 02/16/17 06:57 Dose: 3 ml Aspirin (Halfprin) 81 mg PO DAILY COUNTS INCLUDE 234 BEDS AT THE [facility] Last Admin: 02/15/17 10:49 Dose: 81 mg Atorvastatin Calcium (Lipitor) 10 mg PO BEDTIME COUNTS INCLUDE 234 BEDS AT THE [facility] Last Admin: 02/15/17 22:54 Dose: Not Given Carvedilol (Coreg) 25 mg PO BID COUNTS INCLUDE 234 BEDS AT THE [facility] Last Admin: 02/15/17 22:54 Dose: Not Given Cholecalciferol (Vitamin D3) 2,000 units PO BID COUNTS INCLUDE 234 BEDS AT THE [facility] Last Admin: 02/15/17 22:55 Dose: Not Given Dextrose (Glutose 15) 15 gm PO ASDIRECTED PRN PRN Reason: HYPOGLYCEMIA Dextrose/Water (Dextrose 50% In Water) 50 ml IVPUSH ASDIRECTED PRN PRN Reason: HYPOGLYCEMIA Diphenhydramine HCl (Benadryl) 25 mg IVPUSH Q6H PRN PRN Reason: Itching Last Admin: 02/16/17 02:56 Dose: 25 mg Doxazosin Mesylate (Cardura) 2 mg PO BEDTIME COUNTS INCLUDE 234 BEDS AT THE [facility] Last Admin: 02/15/17 22:54 Dose: Not Given Gabapentin (Neurontin) 600 mg PO BID COUNTS INCLUDE 234 BEDS AT THE [facility] Last Admin: 02/15/17 22:54 Dose: Not Given Glucagon (Glucagen) 1 mg IM ASDIRECTED PRN PRN Reason: HYPOGLYCEMIA Hydromorphone HCl (Dilaudid) 0.5 - 1 mg IVPUSH Q1H PRN PRN Reason: PAIN Sodium Chloride (Normal Saline) 1,000 mls @ 50 mls/hr IV ASDIRECTED COUNTS INCLUDE 234 BEDS AT THE [facility] Last Admin: 02/16/17 07:49 Dose: 50 mls/hr Insulin Aspart (Novolog) 0 unit SUBCUT QIDACANDBED COUNTS INCLUDE 234 BEDS AT THE [facility] PRN Reason: Protocol Last Admin: 02/15/17 21:18 Dose: 2 units Lorazepam (Ativan) 0.5 mg IVPUSH Q2H PRN PRN Reason: Anxiety Last Admin: 02/11/17 23:46 Dose: 0.5 mg Lorazepam (Ativan Oral Concentrate 1mg/0.5 Ml U/D) 1 mg PO Q2H PRN PRN Reason: Anxiety Last Admin: 02/14/17 21:11 Dose: 1 mg Melatonin (Melatonin) 3 mg PO BEDTIME PRN PRN Reason: Insomnia Last Admin: 02/09/17 21:08 Dose: 3 mg Multivitamins/Minerals (Thera M Plus) 1 tab PO DAILY COUNTS INCLUDE 234 BEDS AT THE [facility] Last Admin: 02/15/17 10:50 Dose: 1 tab Nystatin (Nystatin Crm) 0 gm TOP BID COUNTS INCLUDE 234 BEDS AT THE [facility] Last Admin: 02/15/17 21:15 Dose: Not Given Ondansetron HCl (Zofran Odt) 4 mg PO Q6H PRN PRN Reason: Nausea/Vomiting Last Admin: 02/08/17 10:12 Dose: 4 mg Oxycodone HCl (Oxycodone) 5 mg PO Q4H PRN PRN Reason: Pain Last Admin: 02/14/17 06:16 Dose: 5 mg Oxymetazoline HCl (Afrin Original 0.05% Nasal [place]) 0 ml FEDE Q12H PRN PRN Reason: Other Last Admin: 02/11/17 20:58 Dose: 2 spray Pantoprazole Sodium (Protonix) 40 mg PO ACBREAKFAST COUNTS INCLUDE 234 BEDS AT THE [facility] Last Admin: 02/15/17 10:49 Dose: 40 mg Senna/Docusate Sodium (Senna Plus) 1 tab PO BID PRN PRN Reason: Constipation Last Admin: 02/15/17 18:06 Dose: 1 tab Sildenafil Citrate (Revatio) 20 mg PO Q8H COUNTS INCLUDE 234 BEDS AT THE [facility] Last Admin: 02/16/17 00:08 Dose: Not Given Silver Sulfadiazine (Silvadene 1% Cream 50 Gm) 0 gm TOP BID PRN PRN Reason: Wound Care Trazodone HCl (Trazodone) 50 mg PO BEDTIME COUNTS INCLUDE 234 BEDS AT THE [facility] Last Admin: 02/15/17 22:54 Dose: Not Given Discontinued Medications Ampicillin (Principen) 500 mg PO Q6H COUNTS INCLUDE 234 BEDS AT THE [facility] Last Admin: 02/12/17 05:07 Dose: 500 mg Ampicillin (Principen) 500 mg PO TID COUNTS INCLUDE 234 BEDS AT THE [facility] Last Admin: 02/12/17 21:40 Dose: 500 mg Bumetanide (Bumex) 3 mg PO BID COUNTS INCLUDE 234 BEDS AT THE [facility] Last Admin: 02/09/17 20:59 Dose: 3 mg Bumetanide (Bumex) 2 mg IVPUSH ONETIME ONE Stop: 02/09/17 16:25 Last Admin: 02/09/17 15:39 Dose: 2 mg Bumetanide (Bumex) 2 mg IVPUSH ONETIME ONE Stop: 02/13/17 10:01 Last Admin: 02/13/17 11:53 Dose: 2 mg Bumetanide (Bumex) 4 mg IVPUSH ONETIME ONE Stop: 02/13/17 15:31 Last Admin: 02/13/17 15:57 Dose: 4 mg Dextrose/Water (Dextrose 50% In Water) 50 ml IVPUSH ONETIME ONE Stop: 02/06/17 06:15 Last Admin: 02/06/17 06:21 Dose: 50 ml Dextrose/Water (Dextrose 50% In Water) Confirm Administered Dose 50 ml .ROUTE .STK-MED ONE Stop: 02/06/17 06:17 Last Admin: 02/06/17 06:21 Dose: Not Given Dextrose/Water (Dextrose 50% In Water) 50 ml IV ONETIME ONE Stop: 02/06/17 07:46 Last Admin: 02/06/17 09:46 Dose: 50 ml Diphenhydramine HCl (Benadryl) 25 mg PO ONETIME ONE Stop: 02/12/17 07:01 Last Admin: 02/12/17 08:40 Dose: Not Given Diphenhydramine HCl (Benadryl) 50 mg IVPUSH ONETIME ONE Stop: 02/12/17 09:31 Last Admin: 02/12/17 12:45 Dose: 50 mg Gentamicin Sulfate 400 mg/ (Sodium Chloride) 160 mls @ 106 mls/hr IV Q36H COUNTS INCLUDE 234 BEDS AT THE [facility] Stop: 02/06/17 21:31 Last Admin: 02/06/17 20:39 Dose: 106 mls/hr Meropenem 1 gm/ Sodium (Chloride) 50 mls @ 100 mls/hr IV Q12H COUNTS INCLUDE 234 BEDS AT THE [facility] Last Admin: 02/08/17 10:23 Dose: 100 mls/hr Ampicillin Sodium 2 gm/ Sodium (Chloride) 100 mls @ 200 mls/hr IV Q6H COUNTS INCLUDE 234 BEDS AT THE [facility] Last Admin: 02/10/17 05:37 Dose: 200 mls/hr Sodium Chloride (Normal Saline) 1,000 mls @ 100 mls/hr IV ASDIRECTED COUNTS INCLUDE 234 BEDS AT THE [facility] Last Admin: 02/12/17 08:56 Dose: 100 mls/hr Ibuprofen (Motrin) 600 mg PO Q6H PRN PRN Reason: Pain/Fever Last Admin: 02/09/17 19:48 Dose: 600 mg Insulin Aspart (Novolog) 12 unit SUBCUT TIDMEALS COUNTS INCLUDE 234 BEDS AT THE [facility] Last Admin: 02/07/17 08:40 Dose: Not Given Insulin Aspart (Novolog) 0 - 5 unit SUBCUT QID PRN; Protocol PRN Reason: LOW CORRECTIONAL DOSE Last Admin: 02/11/17 08:07 Dose: 2 units Insulin Aspart (Novolog) 7 unit SUBCUT NOW ONE Stop: 02/09/17 18:01 Last Admin: 02/09/17 18:13 Dose: 7 unit Insulin Aspart (Novolog) 7 unit SUBCUT ONETIME ONE Stop: 02/10/17 11:31 Last Admin: 02/10/17 12:07 Dose: 7 units Insulin Aspart (Novolog) 7 unit SUBCUT ONETIME ONE Stop: 02/10/17 16:51 Last Admin: 02/10/17 17:14 Dose: 7 units Insulin Aspart (Novolog) 7 unit SUBCUT ONETIME ONE Stop: 02/10/17 21:51 Last Admin: 02/10/17 22:13 Dose: 7 units Insulin Aspart (Novolog) 0 unit SUBCUT QIDACANDBED COUNTS INCLUDE 234 BEDS AT THE [facility] PRN Reason: Protocol Last Admin: 02/12/17 07:32 Dose: Not Given Insulin Detemir (Levemir) 15 unit SUBCUT BID COUNTS INCLUDE 234 BEDS AT THE [facility] Last Admin: 02/07/17 09:23 Dose: Not Given Insulin Detemir (Levemir) 6 unit SUBCUT BID COUNTS INCLUDE 234 BEDS AT THE [facility] Stop: 02/13/17 21:00 Last Admin: 02/10/17 08:33 Dose: 6 units Insulin Detemir (Levemir) 8 unit SUBCUT BID COUNTS INCLUDE 234 BEDS AT THE [facility] Stop: 02/13/17 21:00 Last Admin: 02/13/17 21:33 Dose: 8 units Lorazepam (Ativan) 0.5 mg PO Q2H PRN PRN Reason: Anxiety Last Admin: 02/12/17 10:22 Dose: 0.5 mg Methylprednisolone Sodium Succinate (Solu-Medrol) 40 mg IVPUSH Q8H COUNTS INCLUDE 234 BEDS AT THE [facility] Last Admin: 02/10/17 00:03 Dose: 40 mg Methylprednisolone Sodium Succinate (Solu-Medrol) 125 mg IVPUSH ONETIME ONE Stop: 02/12/17 09:31 Last Admin: 02/12/17 12:45 Dose: 125 mg Morphine Sulfate (Morphine 10 Mg/0.5 Ml Oral Syringe) 10 mg PO Q2H PRN PRN Reason: Pain/Air Hunger Last Admin: 02/15/17 12:10 Dose: 10 mg Non-Formulary Medication (Darbepoetin Diego [Aranesp]) 200 mcg SUBCUT Q14D COUNTS INCLUDE 234 BEDS AT THE [facility] Phytonadione (Aquamephyton) 2.5 mg PO ONETIME ONE Stop: 02/11/17 10:31 Last Admin: 02/11/17 10:34 Dose: 2.5 mg Potassium Chloride (Klor-Con M20) 20 meq PO DAILY COUNTS INCLUDE 234 BEDS AT THE [facility] Last Admin: 02/12/17 08:41 Dose: 20 meq Sodium Polystyrene Sulfonate (Kayexalate) 30 gm PO ONETIME ONE Stop: 02/10/17 17:52 Last Admin: 02/10/17 18:23 Dose: 30 gm Warfarin Sodium (Coumadin) 10 mg PO MoTh@1300 EARNEST Last Admin: 02/07/17 15:44 Dose: 10 mg Warfarin Sodium (Coumadin) 7.5 mg PO SuTuWeFrSa@1300 EARNEST Last Admin: 02/08/17 14:37 Dose: 7.5 mg Warfarin Sodium (Coumadin) 7.5 mg PO ONETIME ONE Stop: 02/12/17 13:01 Last Admin: 02/12/17 14:15 Dose: 7.5 mg Warfarin Sodium (Coumadin) 10 mg PO ONETIME ONE Stop: 02/13/17 13:01 Last Admin: 02/13/17 17:50 Dose: 10 mg Warfarin Sodium (Coumadin) Confirm Administered Dose 10 mg .ROUTE .STK-MED ONE Stop: 02/13/17 17:50 Last Admin: 02/13/17 17:56 Dose: Not Given Warfarin Sodium (Coumadin) 7.5 mg PO ONETIME ONE Stop: 02/14/17 14:01 Last Admin: 02/14/17 14:32 Dose: 7.5 mg - Exam Quality Assessment: supplemental oxygen, urine catheter General: no acute distress. No: alert Neck: supple Lungs: Clear to auscultation, Normal respiratory effort, Decreased breath sounds (both bases) Cardiovascular: Regular Rate, Regular Rhythm. No: Murmurs Abdomen: soft, no tenderness, no distension Extremities: edema (pitting edema of both legs from the foot to the waist, greater in dependent areas) Skin: warm, dry Psy/Mental Status: other (somnolent ). No: alert - Problem List Review Problem List Initiated/Reviewed/Updated: Yes - Plan Plan:: ASSESSMENT AND PLAN ACUTE ON CHRONIC RESPIRATORY FAILURE WITH HYPOXIA AND HYPERCAPNIA - he has reached end-stage of his disease and appears to be essentially dependent on his noninvasive ventilation to maintain respiratory status. Cor pulmonale complicating the picture and the diuresis achievable because of acute kidney injury. Patient is now DO NOT INTUBATE and DO NOT RESUSCITATE. We are moving more towards comfort at this time. He is still contemplating the level of care he would like to receive. He seems to be entering the dying process at this time despite the noninvasive ventilation. He did have some facial itching last night and morphine was discontinued. I think imaging may be more related to the mask the medication but we will continue with the hydromorphone for now. Family is hesitant to allow the mass to be removed permanently at this point and would like to continue the current level of care. -Continue use of NIPPV as needed -Supplemental oxygen when not using NIPPV -Hydromorphone as needed for air hunger and lorazepam for anxiety -Supplemental oxygen as needed -Continue nebulizer therapy ACUTE ON CHRONIC RENAL FAILURE - renal function has continued to decline in urine output is declining. No labs this morning. -Gentle IV fluids -Continue to hold diuresis EPISTAXIS - no difficulties in the past couple of days -Afrin as needed -INR in the morning COPD WITH COR PULMONALE - peripheral edema has continued to progress and is not responding to diuresis. -Hold on diuretics today -Continue sildenafil DECUBITUS ULCER - present on admission. Treatment complicated by bedbound status. -Continue current therapy and management DIABETES MELLITUS TYPE - glucose levels have been acceptable. 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 -Continue current management MECHANICAL AORTIC VALVE REPLACEMENT - on long-term oral anticoagulation with warfarin. INR therapeutic yesterday. -Hold warfarin today -Repeat INR in a.m. MONOCLONAL GAMMOPATHY OF UNDETERMINED SIGNIFICANCE - with associated anemia. Hemoglobin stable. -If additional blood transfusions are necessary we will need to premedicate with Solu-Medrol, Benadryl and Tylenol -Hemoglobin in the morning MAINTENANCE ISSUES -DVT prophylaxis; current therapy with warfarin should provide adequate DVT prophylaxis -GI prophylaxis; continue PPI therapy -Verma catheter; chronic indwelling -Nutrition; consistent carb diet DISPOSITION - Patient has had a fairly rapid decline and is likely going to pass in the next day or 2 if the current trend continues. Tato Lua M.D.
[2017-02-16] MEDS: Insulin Aspart 100 Units/ML 3 ML Pen SUBCUT SCH ×4 (11:26→21:39)
[2017-02-16] MEDS: Nystatin Crm 15 GM Tube TOP SCH ×2 (11:26→20:40)
[2017-02-16] MEDS: Pantoprazole 40 MG Tab.CR PO SCH (14:13)
[2017-02-16] MEDS: Gabapentin 300 MG Cap PO SCH ×2 (14:13→20:40)
[2017-02-16] MEDS: Aspirin 81 MG Tab.EC PO SCH (14:13)
[2017-02-16] MEDS: Carvedilol 25 MG Tab PO SCH ×2 (14:13→20:58)
[2017-02-16] MEDS: Multivitamins with Iron/Calcium/Folic Acid/Minerals Tab PO SCH (14:13)
[2017-02-16] MEDS: Cholecalciferol (Vitamin D3) 1,000 Unit Tab PO SCH ×2 (14:13→20:40)
[2017-02-16] MEDS: atorvaSTATin 10 MG Tab PO SCH (20:45)
[2017-02-16] MEDS: traZODone 50 MG Tab PO SCH (20:45)
[2017-02-16] MEDS: Doxazosin 4 MG Tab PO SCH (20:58)
[2017-02-16] MEDS: HYDROmorphone 0.5 MG/0.5 ML Syringe IVPUSH PRN (21:18)
[2017-02-17] MEDS: diphenhydrAMINE 50 MG/ML SDV IVPUSH PRN (01:20)
[2017-02-17] MEDS: Sodium Chloride 0.9% 1,000 ML IV SCH (03:22)
[2017-02-17] MEDS: HYDROmorphone 0.5 MG/0.5 ML Syringe IVPUSH PRN ×4 (03:26→20:58)
[2017-02-17] MEDS: Albuterol/Ipratropium 3.0-0.5 MG/3 ML Neb Soln NEB SCH ×3 (07:08→14:38)
--- NOTE | 2017-02-17 10:22 | PCM.PN ---
- General Info Date of Service: 02/17/17 Functional Status: Reports: pain controlled, urinating. Denies: ambulating - Review of Systems General: Reports: Weakness. Denies: Fever Systems Review Comment:: no acute events overnight. He has been essentially dependent on his noninvasive ventilation. He is not responsive this morning. He was taken off of the noninvasive ventilation with his family arrived but has not responded. He is displaying Tod-Alston breathing. His edema seems worse today. Family has requested that we not put the noninvasive ventilation mask back on an as he wakes up and asks for it. He is receiving hydromorphone and lorazepam for pain and anxiety. - Patient Data Vitals - most recent: Last Vital Signs Temp 36.1 C 02/17/17 07:00 Pulse 76 02/17/17 07:00 Resp 11 L 02/17/17 07:00 BP 102/54 L 02/17/17 07:00 Pulse Ox 89 L 02/17/17 07:00 Weight - most recent: 102.2 kg I&O - last 24 hours: Intake & Output 02/16/17 02/17/17 02/17/17 22:59 06:59 14:59 Intake Total 712 612 Output Total 200 200 Balance 512 412 Med Orders - Current: Current Medications Acetaminophen (Tylenol) 650 mg PO Q4H PRN PRN Reason: pain Last Admin: 02/10/17 23:55 Dose: 650 mg Albuterol (Proventil Neb Soln) 2.5 mg NEB Q4H PRN PRN Reason: Dyspnea Last Admin: 02/12/17 10:33 Dose: 2.5 mg Albuterol/Ipratropium (Duoneb 3.0-0.5 Mg/3 Ml) 3 ml NEB QIDRT [facility] Last Admin: 02/17/17 07:08 Dose: 3 ml Aspirin (Halfprin) 81 mg PO DAILY [facility] Last Admin: 02/16/17 14:13 Dose: Not Given Atorvastatin Calcium (Lipitor) 10 mg PO BEDTIME [facility] Last Admin: 02/16/17 20:45 Dose: Not Given Carvedilol (Coreg) 25 mg PO BID [facility] Last Admin: 02/16/17 20:58 Dose: Not Given Cholecalciferol (Vitamin D3) 2,000 units PO BID [facility] Last Admin: 04/29/17 20:40 Dose: 2,000 units Dextrose (Glutose 15) 15 gm PO ASDIRECTED PRN PRN Reason: HYPOGLYCEMIA Dextrose/Water (Dextrose 50% In Water) 50 ml IVPUSH ASDIRECTED PRN PRN Reason: HYPOGLYCEMIA Diphenhydramine HCl (Benadryl) 25 mg IVPUSH Q6H PRN PRN Reason: Itching Last Admin: 02/17/17 01:20 Dose: 25 mg Doxazosin Mesylate (Cardura) 2 mg PO BEDTIME [facility] Last Admin: 02/16/17 20:58 Dose: Not Given Gabapentin (Neurontin) 600 mg PO BID [facility] Last Admin: 02/16/17 20:40 Dose: 600 mg Glucagon (Glucagen) 1 mg IM ASDIRECTED PRN PRN Reason: HYPOGLYCEMIA Hydromorphone HCl (Dilaudid) 0.5 - 1 mg IVPUSH Q1H PRN PRN Reason: PAIN Last Admin: 02/17/17 08:08 Dose: 0.5 mg Sodium Chloride (Normal Saline) 1,000 mls @ 50 mls/hr IV ASDIRECTED [facility] Last Admin: 02/17/17 03:22 Dose: 50 mls/hr Insulin Aspart (Novolog) 0 unit SUBCUT QIDACANDBED [facility] PRN Reason: Protocol Last Admin: 02/16/17 21:39 Dose: 4 units Lorazepam (Ativan) 0.5 mg IVPUSH Q2H PRN PRN Reason: Anxiety Last Admin: 02/11/17 23:46 Dose: 0.5 mg Lorazepam (Ativan Oral Concentrate 1mg/0.5 Ml U/D) 1 mg PO Q2H PRN PRN Reason: Anxiety Last Admin: 02/14/17 21:11 Dose: 1 mg Melatonin (Melatonin) 3 mg PO BEDTIME PRN PRN Reason: Insomnia Last Admin: 02/09/17 21:08 Dose: 3 mg Multivitamins/Minerals (Thera M Plus) 1 tab PO DAILY [facility] Last Admin: 02/16/17 14:13 Dose: Not Given Nystatin (Nystatin Crm) 0 gm TOP BID [facility] Last Admin: 02/16/17 20:40 Dose: Not Given Ondansetron HCl (Zofran Odt) 4 mg PO Q6H PRN PRN Reason: Nausea/Vomiting Last Admin: 02/08/17 10:12 Dose: 4 mg Oxycodone HCl (Oxycodone) 5 mg PO Q4H PRN PRN Reason: Pain Last Admin: 02/14/17 06:16 Dose: 5 mg Oxymetazoline HCl (Afrin Original 0.05% Nasal [place]) 0 ml FEDE Q12H PRN PRN Reason: Other Last Admin: 02/11/17 20:58 Dose: 2 spray Pantoprazole Sodium (Protonix) 40 mg PO ACBREAKFAST [facility] Last Admin: 02/16/17 14:13 Dose: Not Given Senna/Docusate Sodium (Senna Plus) 1 tab PO BID PRN PRN Reason: Constipation Last Admin: 02/15/17 18:06 Dose: 1 tab Sildenafil Citrate (Revatio) 20 mg PO Q8H [facility] Last Admin: 02/16/17 23:19 Dose: Not Given Silver Sulfadiazine (Silvadene 1% Cream 50 Gm) 0 gm TOP BID PRN PRN Reason: Wound Care Trazodone HCl (Trazodone) 50 mg PO BEDTIME [facility] Last Admin: 02/16/17 20:45 Dose: 50 mg Discontinued Medications Ampicillin (Principen) 500 mg PO Q6H [facility] Last Admin: 02/12/17 05:07 Dose: 500 mg Ampicillin (Principen) 500 mg PO TID [facility] Last Admin: 02/12/17 21:40 Dose: 500 mg Bumetanide (Bumex) 3 mg PO BID [facility] Last Admin: 02/09/17 20:59 Dose: 3 mg Bumetanide (Bumex) 2 mg IVPUSH ONETIME ONE Stop: 02/09/17 16:25 Last Admin: 02/09/17 15:39 Dose: 2 mg Bumetanide (Bumex) 2 mg IVPUSH ONETIME ONE Stop: 02/13/17 10:01 Last Admin: 02/13/17 11:53 Dose: 2 mg Bumetanide (Bumex) 4 mg IVPUSH ONETIME ONE Stop: 02/13/17 15:31 Last Admin: 02/13/17 15:57 Dose: 4 mg Dextrose/Water (Dextrose 50% In Water) 50 ml IVPUSH ONETIME ONE Stop: 02/06/17 06:15 Last Admin: 02/06/17 06:21 Dose: 50 ml Dextrose/Water (Dextrose 50% In Water) Confirm Administered Dose 50 ml .ROUTE .STK-MED ONE Stop: 02/06/17 06:17 Last Admin: 02/06/17 06:21 Dose: Not Given Dextrose/Water (Dextrose 50% In Water) 50 ml IV ONETIME ONE Stop: 02/06/17 07:46 Last Admin: 02/06/17 09:46 Dose: 50 ml Diphenhydramine HCl (Benadryl) 25 mg PO ONETIME ONE Stop: 02/12/17 07:01 Last Admin: 02/12/17 08:40 Dose: Not Given Diphenhydramine HCl (Benadryl) 50 mg IVPUSH ONETIME ONE Stop: 02/12/17 09:31 Last Admin: 02/12/17 12:45 Dose: 50 mg Gentamicin Sulfate 400 mg/ (Sodium Chloride) 160 mls @ 106 mls/hr IV Q36H [facility] Stop: 02/06/17 21:31 Last Admin: 02/06/17 20:39 Dose: 106 mls/hr Meropenem 1 gm/ Sodium (Chloride) 50 mls @ 100 mls/hr IV Q12H [facility] Last Admin: 02/08/17 10:23 Dose: 100 mls/hr Ampicillin Sodium 2 gm/ Sodium (Chloride) 100 mls @ 200 mls/hr IV Q6H [facility] Last Admin: 02/10/17 05:37 Dose: 200 mls/hr Sodium Chloride (Normal Saline) 1,000 mls @ 100 mls/hr IV ASDIRECTED [facility] Last Admin: 02/12/17 08:56 Dose: 100 mls/hr Ibuprofen (Motrin) 600 mg PO Q6H PRN PRN Reason: Pain/Fever Last Admin: 02/09/17 19:48 Dose: 600 mg Insulin Aspart (Novolog) 12 unit SUBCUT TIDMEALS [facility] Last Admin: 02/07/17 08:40 Dose: Not Given Insulin Aspart (Novolog) 0 - 5 unit SUBCUT QID PRN; Protocol PRN Reason: LOW CORRECTIONAL DOSE Last Admin: 02/11/17 08:07 Dose: 2 units Insulin Aspart (Novolog) 7 unit SUBCUT NOW ONE Stop: 02/09/17 18:01 Last Admin: 02/09/17 18:13 Dose: 7 unit Insulin Aspart (Novolog) 7 unit SUBCUT ONETIME ONE Stop: 02/10/17 11:31 Last Admin: 02/10/17 12:07 Dose: 7 units Insulin Aspart (Novolog) 7 unit SUBCUT ONETIME ONE Stop: 02/10/17 16:51 Last Admin: 02/10/17 17:14 Dose: 7 units Insulin Aspart (Novolog) 7 unit SUBCUT ONETIME ONE Stop: 02/10/17 21:51 Last Admin: 02/10/17 22:13 Dose: 7 units Insulin Aspart (Novolog) 0 unit SUBCUT QIDACANDBED [facility] PRN Reason: Protocol Last Admin: 02/12/17 07:32 Dose: Not Given Insulin Detemir (Levemir) 15 unit SUBCUT BID [facility] Last Admin: 02/07/17 09:23 Dose: Not Given Insulin Detemir (Levemir) 6 unit SUBCUT BID [facility] Stop: 02/13/17 21:00 Last Admin: 02/10/17 08:33 Dose: 6 units Insulin Detemir (Levemir) 8 unit SUBCUT BID [facility] Stop: 02/13/17 21:00 Last Admin: 02/13/17 21:33 Dose: 8 units Lorazepam (Ativan) 0.5 mg PO Q2H PRN PRN Reason: Anxiety Last Admin: 02/12/17 10:22 Dose: 0.5 mg Methylprednisolone Sodium Succinate (Solu-Medrol) 40 mg IVPUSH Q8H [facility] Last Admin: 02/10/17 00:03 Dose: 40 mg Methylprednisolone Sodium Succinate (Solu-Medrol) 125 mg IVPUSH ONETIME ONE Stop: 02/12/17 09:31 Last Admin: 02/12/17 12:45 Dose: 125 mg Morphine Sulfate (Morphine 10 Mg/0.5 Ml Oral Syringe) 10 mg PO Q2H PRN PRN Reason: Pain/Air Hunger Last Admin: 02/15/17 12:10 Dose: 10 mg Non-Formulary Medication (Darbepoetin Diego [Aranesp]) 200 mcg SUBCUT Q14D [facility] Phytonadione (Aquamephyton) 2.5 mg PO ONETIME ONE Stop: 02/11/17 10:31 Last Admin: 02/11/17 10:34 Dose: 2.5 mg Potassium Chloride (Klor-Con M20) 20 meq PO DAILY [facility] Last Admin: 02/12/17 08:41 Dose: 20 meq Sodium Polystyrene Sulfonate (Kayexalate) 30 gm PO ONETIME ONE Stop: 02/10/17 17:52 Last Admin: 02/10/17 18:23 Dose: 30 gm Warfarin Sodium (Coumadin) 10 mg PO MoTh@1300 [facility] Last Admin: 02/07/17 15:44 Dose: 10 mg Warfarin Sodium (Coumadin) 7.5 mg PO SuTuWeFrSa@1300 [facility] Last Admin: 02/08/17 14:37 Dose: 7.5 mg Warfarin Sodium (Coumadin) 7.5 mg PO ONETIME ONE Stop: 02/12/17 13:01 Last Admin: 02/12/17 14:15 Dose: 7.5 mg Warfarin Sodium (Coumadin) 10 mg PO ONETIME ONE Stop: 02/13/17 13:01 Last Admin: 02/13/17 17:50 Dose: 10 mg Warfarin Sodium (Coumadin) Confirm Administered Dose 10 mg .ROUTE .STK-MED ONE Stop: 02/13/17 17:50 Last Admin: 02/13/17 17:56 Dose: Not Given Warfarin Sodium (Coumadin) 7.5 mg PO ONETIME ONE Stop: 02/14/17 14:01 Last Admin: 02/14/17 14:32 Dose: 7.5 mg - Exam Quality Assessment: supplemental oxygen, urine catheter General: no acute distress, obtunded. No: alert, oriented Neck: supple Lungs: Rhonchi (coarse throughout), Wheezing (mild diffuse exp wheezing ) Cardiovascular: Regular Rate, Regular Rhythm, Murmurs Abdomen: soft, no tenderness, no distension Extremities: edema (pitting edema left leg from foot to waste, also pitting edema left arm. 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 he is now actively dying. Family has requested that we not continue to use a noninvasive ventilation. -supplemental oxygen for comfort -Hydromorphone as needed for air hunger and lorazepam for anxiety -Continue nebulizer therapy ACUTE ON CHRONIC RENAL FAILURE - renal function has continued to decline in urine output is declining. No labs this morning. -Gentle IV fluids -Continue to hold diuresis EPISTAXIS - no difficulties in the past couple of days -Afrin as needed -INR in the morning COPD WITH COR PULMONALE - peripheral edema has continued to progress and has not been responding to diuresis. -Hold on diuretics today -Continue sildenafil DECUBITUS ULCER - present on admission. Treatment complicated by bedbound status. -Continue current therapy and management DIABETES MELLITUS TYPE - glucose levels have been acceptable. 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 -Continue current management MECHANICAL AORTIC VALVE REPLACEMENT - on long-term oral anticoagulation with warfarin. INR therapeutic 2 days ago. -unable to take warfarin MONOCLONAL GAMMOPATHY OF UNDETERMINED SIGNIFICANCE - with associated anemia. Hemoglobin stable. MAINTENANCE ISSUES -DVT prophylaxis; current therapy with warfarin should provide adequate DVT prophylaxis -GI prophylaxis; continue PPI therapy -Verma catheter; chronic indwelling -Nutrition; not able to take anything by mouth DISPOSITION - Patient is actively dying. Trying to transfer him to home or a longterm at this time would cause undue stress and she likely would not survive the transport. Tato Lua M.D.
[2017-02-17] MEDS: Insulin Aspart 100 Units/ML 3 ML Pen SUBCUT SCH ×3 (11:17→17:12)
[2017-02-17] MEDS: Aspirin 81 MG Tab.EC PO SCH (11:18)
[2017-02-17] MEDS: Pantoprazole 40 MG Tab.CR PO SCH (11:18)
[2017-02-17] MEDS: Gabapentin 300 MG Cap PO SCH (11:18)
[2017-02-17] MEDS: Nystatin Crm 15 GM Tube TOP SCH (11:18)
[2017-02-17] MEDS: Carvedilol 25 MG Tab PO SCH (11:18)
[2017-02-17] MEDS: Sildenafil 20 MG Tab PO SCH ×2 (11:18→17:12)
[2017-02-17] MEDS: Cholecalciferol (Vitamin D3) 1,000 Unit Tab PO SCH (11:19)
[2017-02-17] MEDS: Multivitamins with Iron/Calcium/Folic Acid/Minerals Tab PO SCH (11:19)
[2017-02-17] MEDS: LORazepam ORAL Concentrate 1MG/0.5ML U/D PO PRN ×4 (13:57→23:15)
[2017-02-17] MEDS: Atropine Sulfate Ophth 2 ML Drops SL PRN ×2 (19:36→23:15)
[2017-02-17 21:02] VITALS: BP 94/49
[2017-02-18] MEDS: HYDROmorphone 0.5 MG/0.5 ML Syringe IVPUSH PRN (01:55)
--- NOTE | 2017-02-18 14:28 | PCM.DCSUM1 ---
Discharge Summary - Hospital Course Brief History: This patient is a 71-year-old gentleman who is admitted through the emergency department with progressive respiratory failure, increased weakness and shortness of breath. - Discharge Data Discharge Date: 02/18/17 Discharge Disposition: 20 Condition: Undetermined - Patient Summary/Data Hospital Course: Mr. Peacock was a 71-year-old gentleman with a long-standing history of COPD and progression of his disease with increased shortness of breath. Because of progressive increased shortness of breath and weakness he was admitted to the hospital for further evaluation and management. He was found to have significant CO2 retention resulting in CO2 narcosis and further respiratory compromise. Because of this he was placed on noninvasive ventilation with BiPAP , this did improve both his oxygenation as well as CO2 retention. On admission was also found to have a urinary tract infection and was treated with IV antibiotic therapy, he does have chronic indwelling Verma catheter because of bladder outlet obstruction with BPH. He had had significant cor pulmonale and resultant peripheral edema. Echocardiogram did show preserved left ventricular function but right ventricular enlargement and decreased right ventricular function with elevated right-sided pressures. Echocardiogram also documented his previously known aortic fell replacement. He is had a long-standing history of diabetes and was treated with long-acting insulins as well as sliding scale NovoLog during his hospital stay. A decubitus ulcer as well as an ulcer on his foot were both present on admission and managed with local cares during hospitalization. Despite use of noninvasive ventilation he continued to experience significant respiratory compromise, initially the patient wanted to remain full code and was even willing to accept intubation and mechanical ventilation if needed. We did explain to him that he would require ongoing home ventilation with a Trilogy home ventilator. Because of persistent symptoms and decline patient did be side to change his CODE STATUS to DNR/DNI. He became less responsive and after further discussion with family decision was made to proceed with comfort cares only. Attempts at diuresis were unsuccessful and only resulted in worsening of his chronic kidney disease with acute kidney dysfunction. After he was made comfort cares only he was treated for comfort as needed with morphine and lorazepam. Early in the morning of February 18 he , no attempts were made at resuscitation as per the patient's and family's previously expressed wishes. - Discharge Plan Home Medications: Home Meds Gabapentin [Neurontin] 600 mg PO BID 08/08/14 [History] Multivitamin with Minerals [Multiple Vitamin] 1 tab PO DAILY 05/28/14 [History] Cholecalciferol (Vitamin D3) [Vitamin D3] 2,000 unit PO BID 07/27/14 [History] Insulin Lispro [Humalog] 12 units SUBCUT TIDMEALS 12/07/15 [History] Omeprazole 20 mg PO DAILY 12/07/15 [History] Sennosides/Docusate Sodium [Senna-S] 17.2 mg PO BID PRN 12/07/15 [History] traZODone 50 mg PO BEDTIME 12/07/15 [History] Aspirin [Ecotrin] 81 mg PO DAILY 08/29/16 [History] Carvedilol [Coreg] 25 mg PO BID 08/29/16 [History] Melatonin [Melatin] 3 mg PO BEDTIME PRN 08/29/16 [History] atorvaSTATin [Lipitor] 10 mg PO BEDTIME 08/29/16 [History] Albuterol [IJD: Albuterol] 2.5 mg NEB Q4H PRN #0 nebule 09/19/16 [Rx] Albuterol/Ipratropium [DuoNeb 3.0-0.5 MG/3 ML] 3 ml NEB QIDRT neb 09/19/16 [Rx] Insulin Glarg,Human.Rec.Analog [Lantus Solostar] 15 units SQ BID 09/24/16 [ History] Doxazosin Mesylate [Cardura] 2 mg PO BEDTIME #0 10/05/16 [Rx] Potassium Chloride [Klor-Con M20] 20 meq PO DAILY tab.er 10/05/16 [Rx] Sildenafil [Revatio] 20 mg PO Q8H tablet 10/05/16 [Rx] Bumetanide [Bumex] 3 mg PO BID 11/29/16 [History] Darbepoetin Diego [Aranesp] 200 mcg SUBCUT Q14D 11/29/16 [History] Silver Sulfadiazine [Silvadene 1% Cream 50 GM] 0 gm TOP BID PRN #0 tube [Rx] Warfarin [Coumadin] 7.5 - 10 mg PO ASDIRECTED #0 12/02/16 [Rx] Gentamicin [Gentamicin] 400 mg IV Q36H 02/03/17 [History] Referrals: Leoncio Griffin Sr, MD [Physician] - - Patient Data Vitals - Most Recent: Last Vital Signs Temp 97.1 F 02/17/17 20:59 Pulse 75 02/17/17 20:59 Resp 12 02/17/17 20:59 BP 94/49 L 02/17/17 20:59 Pulse Ox 97 02/17/17 20:59 Weight - Most Recent: 225 lb 4.999 oz I&O - Last 24 hours: Intake & Output 02/17/17 02/18/17 02/18/17 22:59 06:59 14:59 Intake Total 567 Output Total 50 Balance 517 Med Orders - Current: Current Medications Discontinued Medications Acetaminophen (Tylenol) 650 mg PO Q4H PRN PRN Reason: pain Last Admin: 02/10/17 23:55 Dose: 650 mg Albuterol (Proventil Neb Soln) 2.5 mg NEB Q4H PRN PRN Reason: Dyspnea Last Admin: 02/12/17 10:33 Dose: 2.5 mg Albuterol/Ipratropium (Duoneb 3.0-0.5 Mg/3 Ml) 3 ml NEB QIDRT [facility] Last Admin: 02/17/17 14:38 Dose: 3 ml Ampicillin (Principen) 500 mg PO Q6H [facility] Last Admin: 02/12/17 05:07 Dose: 500 mg Ampicillin (Princip[place]) 500 mg PO TID [facility] Last Admin: 02/12/17 21:40 Dose: 500 mg Aspirin (Halfprin) 81 mg PO DAILY [facility] Last Admin: 02/17/17 11:18 Dose: Not Given Atorvastatin Calcium (Lipitor) 10 mg PO BEDTIME [facility] Last Admin: 02/16/17 20:45 Dose: Not Given Atropine Sulfate (Atropine 1%) 0 ml SL Q4H PRN PRN Reason: secretions Last Admin: 02/17/17 23:15 Dose: 4 drop Bumetanide (Bumex) 3 mg PO BID [facility] Last Admin: 02/09/17 20:59 Dose: 3 mg Bumetanide (Bumex) 2 mg IVPUSH ONETIME ONE Stop: 02/09/17 16:25 Last Admin: 02/09/17 15:39 Dose: 2 mg Bumetanide (Bumex) 2 mg IVPUSH ONETIME ONE Stop: 02/13/17 10:01 Last Admin: 02/13/17 11:53 Dose: 2 mg Bumetanide (Bumex) 4 mg IVPUSH ONETIME ONE Stop: 02/13/17 15:31 Last Admin: 02/13/17 15:57 Dose: 4 mg Carvedilol (Coreg) 25 mg PO BID [facility] Last Admin: 02/17/17 11:18 Dose: Not Given Cholecalciferol (Vitamin D3) 2,000 units PO BID [facility] Last Admin: 02/17/17 11:19 Dose: Not Given Dextrose (Glutose 15) 15 gm PO ASDIRECTED PRN PRN Reason: HYPOGLYCEMIA Dextrose/Water (Dextrose 50% In Water) 50 ml IVPUSH ONETIME ONE Stop: 02/06/17 06:15 Last Admin: 02/06/17 06:21 Dose: 50 ml Dextrose/Water (Dextrose 50% In Water) Confirm Administered Dose 50 ml .ROUTE .STK-MED ONE Stop: 02/06/17 06:17 Last Admin: 02/06/17 06:21 Dose: Not Given Dextrose/Water (Dextrose 50% In Water) 50 ml IV ONETIME ONE Stop: 02/06/17 07:46 Last Admin: 02/06/17 09:46 Dose: 50 ml Dextrose/Water (Dextrose 50% In Water) 50 ml IVPUSH ASDIRECTED PRN PRN Reason: HYPOGLYCEMIA Diphenhydramine HCl (Benadryl) 25 mg PO ONETIME ONE Stop: 02/12/17 07:01 Last Admin: 02/12/17 08:40 Dose: Not Given Diphenhydramine HCl (Benadryl) 50 mg IVPUSH ONETIME ONE Stop: 02/12/17 09:31 Last Admin: 02/12/17 12:45 Dose: 50 mg Diphenhydramine HCl (Benadryl) 25 mg IVPUSH Q6H PRN PRN Reason: Itching Last Admin: 02/17/17 01:20 Dose: 25 mg Doxazosin Mesylate (Cardura) 2 mg PO BEDTIME [facility] Last Admin: 02/16/17 20:58 Dose: Not Given Gabapentin (Neurontin) 600 mg PO BID [facility] Last Admin: 02/17/17 11:18 Dose: Not Given Glucagon (Glucagen) 1 mg IM ASDIRECTED PRN PRN Reason: HYPOGLYCEMIA Hydromorphone HCl (Dilaudid) 0.5 - 1 mg IVPUSH Q1H PRN PRN Reason: PAIN Last Admin: 02/18/17 01:55 Dose: 0.5 mg Gentamicin Sulfate 400 mg/ (Sodium Chloride) 160 mls @ 106 mls/hr IV Q36H [facility] Stop: 02/06/17 21:31 Last Admin: 02/06/17 20:39 Dose: 106 mls/hr Meropenem 1 gm/ Sodium (Chloride) 50 mls @ 100 mls/hr IV Q12H [facility] Last Admin: 02/08/17 10:23 Dose: 100 mls/hr Ampicillin Sodium 2 gm/ Sodium (Chloride) 100 mls @ 200 mls/hr IV Q6H [facility] Last Admin: 02/10/17 05:37 Dose: 200 mls/hr Sodium Chloride (Normal Saline) 1,000 mls @ 100 mls/hr IV ASDIRECTED [facility] Last Admin: 02/12/17 08:56 Dose: 100 mls/hr Sodium Chloride (Normal Saline) 1,000 mls @ 50 mls/hr IV ASDIRECTED [facility] Last Admin: 02/17/17 03:22 Dose: 50 mls/hr Ibuprofen (Motrin) 600 mg PO Q6H PRN PRN Reason: Pain/Fever Last Admin: 02/09/17 19:48 Dose: 600 mg Insulin Aspart (Novolog) 12 unit SUBCUT TIDMEALS [facility] Last Admin: 02/07/17 08:40 Dose: Not Given Insulin Aspart (Novolog) 0 - 5 unit SUBCUT QID PRN; Protocol PRN Reason: LOW CORRECTIONAL DOSE Last Admin: 02/11/17 08:07 Dose: 2 units Insulin Aspart (Novolog) 7 unit SUBCUT NOW ONE Stop: 02/09/17 18:01 Last Admin: 02/09/17 18:13 Dose: 7 unit Insulin Aspart (Novolog) 7 unit SUBCUT ONETIME ONE Stop: 02/10/17 11:31 Last Admin: 02/10/17 12:07 Dose: 7 units Insulin Aspart (Novolog) 7 unit SUBCUT ONETIME ONE Stop: 02/10/17 16:51 Last Admin: 02/10/17 17:14 Dose: 7 units Insulin Aspart (Novolog) 7 unit SUBCUT ONETIME ONE Stop: 02/10/17 21:51 Last Admin: 02/10/17 22:13 Dose: 7 units Insulin Aspart (Novolog) 0 unit SUBCUT QIDACANDBED [facility] PRN Reason: Protocol Last Admin: 02/12/17 07:32 Dose: Not Given Insulin Aspart (Novolog) 0 unit SUBCUT QIDACANDBED [facility] PRN Reason: Protocol Last Admin: 02/17/17 17:12 Dose: Not Given Insulin Detemir (Levemir) 15 unit SUBCUT BID [facility] Last Admin: 02/07/17 09:23 Dose: Not Given Insulin Detemir (Levemir) 6 unit SUBCUT BID [facility] Stop: 02/13/17 21:00 Last Admin: 02/10/17 08:33 Dose: 6 units Insulin Detemir (Levemir) 8 unit SUBCUT BID [facility] Stop: 02/13/17 21:00 Last Admin: 02/13/17 21:33 Dose: 8 units Lorazepam (Ativan) 0.5 mg PO Q2H PRN PRN Reason: Anxiety Last Admin: 02/12/17 10:22 Dose: 0.5 mg Lorazepam (Ativan) 0.5 mg IVPUSH Q2H PRN PRN Reason: Anxiety Last Admin: 02/11/17 23:46 Dose: 0.5 mg Lorazepam (Ativan Oral Concentrate 1mg/0.5 Ml U/D) 1 mg PO Q2H PRN PRN Reason: Anxiety Last Admin: 02/17/17 17:02 Dose: 1 mg Lorazepam (Ativan Oral Concentrate 1mg/0.5 Ml U/D) 1 mg PO Q1H PRN PRN Reason: Anxiety Last Admin: 02/17/17 23:15 Dose: 1 mg Melatonin (Melatonin) 3 mg PO BEDTIME PRN PRN Reason: Insomnia Last Admin: 02/09/17 21:08 Dose: 3 mg Methylprednisolone Sodium Succinate (Solu-Medrol) 40 mg IVPUSH Q8H [facility] Last Admin: 02/10/17 00:03 Dose: 40 mg Methylprednisolone Sodium Succinate (Solu-Medrol) 125 mg IVPUSH ONETIME ONE Stop: 02/12/17 09:31 Last Admin: 02/12/17 12:45 Dose: 125 mg Morphine Sulfate (Morphine 10 Mg/0.5 Ml Oral Syringe) 10 mg PO Q2H PRN PRN Reason: Pain/Air Hunger Last Admin: 02/15/17 12:10 Dose: 10 mg Multivitamins/Minerals (Thera M Plus) 1 tab PO DAILY [facility] Last Admin: 02/17/17 11:19 Dose: Not Given Non-Formulary Medication (Darbepoetin Diego [Aranesp]) 200 mcg SUBCUT Q14D [facility] Nystatin (Nystatin Crm) 0 gm TOP BID [facility] Last Admin: 02/17/17 11:18 Dose: Not Given Ondansetron HCl (Zofran Odt) 4 mg PO Q6H PRN PRN Reason: Nausea/Vomiting Last Admin: 02/08/17 10:12 Dose: 4 mg Oxycodone HCl (Oxycodone) 5 mg PO Q4H PRN PRN Reason: Pain Last Admin: 02/14/17 06:16 Dose: 5 mg Oxymetazoline HCl (Afrin Original 0.05% Nasal [place]) 0 ml FEDE Q12H PRN PRN Reason: Other Last Admin: 02/11/17 20:58 Dose: 2 spray Pantoprazole Sodium (Protonix) 40 mg PO ACBREAKFAST [facility] Last Admin: 02/17/17 11:18 Dose: Not Given Phytonadione (Aquamephyton) 2.5 mg PO ONETIME ONE Stop: 02/11/17 10:31 Last Admin: 02/11/17 10:34 Dose: 2.5 mg Potassium Chloride (Klor-Con M20) 20 meq PO DAILY [facility] Last Admin: 02/12/17 08:41 Dose: 20 meq Senna/Docusate Sodium (Senna Plus) 1 tab PO BID PRN PRN Reason: Constipation Last Admin: 02/15/17 18:06 Dose: 1 tab Sildenafil Citrate (Revatio) 20 mg PO Q8H [facility] Last Admin: 02/17/17 17:12 Dose: Not Given Silver Sulfadiazine (Silvadene 1% Cream 50 Gm) 0 gm TOP BID PRN PRN Reason: Wound Care Sodium Polystyrene Sulfonate (Kayexalate) 30 gm PO ONETIME ONE Stop: 02/10/17 17:52 Last Admin: 02/10/17 18:23 Dose: 30 gm Trazodone HCl (Trazodone) 50 mg PO BEDTIME [facility] Last Admin: 02/16/17 20:45 Dose: 50 mg Warfarin Sodium (Coumadin) 10 mg PO MoTh@1300 EARNEST Last Admin: 02/07/17 15:44 Dose: 10 mg Warfarin Sodium (Coumadin) 7.5 mg PO SuTuWeFrSa@1300 EARNEST Last Admin: 02/08/17 14:37 Dose: 7.5 mg Warfarin Sodium (Coumadin) 7.5 mg PO ONETIME ONE Stop: 02/12/17 13:01 Last Admin: 02/12/17 14:15 Dose: 7.5 mg Warfarin Sodium (Coumadin) 10 mg PO ONETIME ONE Stop: 02/13/17 13:01 Last Admin: 02/13/17 17:50 Dose: 10 mg Warfarin Sodium (Coumadin) Confirm Administered Dose 10 mg .ROUTE .STK-MED ONE Stop: 02/13/17 17:50 Last Admin: 02/13/17 17:56 Dose: Not Given Warfarin Sodium (Coumadin) 7.5 mg PO ONETIME ONE Stop: 02/14/17 14:01 Last Admin: 02/14/17 14:32 Dose: 7.5 mg *Q Meaningful Use (DIS) - VTE *Q VTE Criteria *Q: - Stroke *Q Stroke Criteria *Q: - AMI *Q AMI Criteria *Q:
== END 2017-02-18 06:40 | disposition expired | DRG 189 ==
LOC: JP.ED 20:49 → JP.MS 22:58 → JP.ICU 02-06 11:13 → JP.MS 02-07 18:25
PROVIDERS: ADMIT Internal Medicine; ATTEND Internal Medicine
PROC: 0HDMXZZ Extraction of Right Foot Skin, External Approach (ICD-10-PCS; principal; 2017-02-05)
PROC: 30233N1 Transfusion of Nonautologous Red Blood Cells into Peripheral Vein, Percutaneous Approach (ICD-10-PCS; 2017-02-09)
PROC: 30233N1 Transfusion of Nonautologous Red Blood Cells into Peripheral Vein, Percutaneous Approach (ICD-10-PCS; 2017-02-12)
DX: J96.21 Acute and chronic respiratory failure with hypoxia (principal); N39.0 Urinary tract infection, site not specified; I13.0 Hypertensive heart and chronic kidney disease with heart failure and stage 1 through stage 4 chronic kidney disease, or unspecified chronic kidney disease; N17.9 Acute kidney failure, unspecified; N13.8 Other obstructive and reflux uropathy; J96.22 Acute and chronic respiratory failure with hypercapnia; B95.2 Enterococcus as the cause of diseases classified elsewhere; E10.21 Type 1 diabetes mellitus with diabetic nephropathy; E10.22 Type 1 diabetes mellitus with diabetic chronic kidney disease; N18.3 Chronic kidney disease, stage 3 (moderate); F17.210 Nicotine dependence, cigarettes, uncomplicated; D50.9 Iron deficiency anemia, unspecified; I50.9 Heart failure, unspecified; E10.621 Type 1 diabetes mellitus with foot ulcer; D47.2 Monoclonal gammopathy; J44.9 Chronic obstructive pulmonary disease, unspecified; L97.529 Non-pressure chronic ulcer of other part of left foot with unspecified severity; L97.519 Non-pressure chronic ulcer of other part of right foot with unspecified severity; Z79.4 Long term (current) use of insulin; E10.51 Type 1 diabetes mellitus with diabetic peripheral angiopathy without gangrene; I27.81 Cor pulmonale (chronic); E87.5 Hyperkalemia; R07.9 Chest pain, unspecified; R04.0 Epistaxis; Z66 Do not resuscitate; Z51.5 Encounter for palliative care; L27.0 Generalized skin eruption due to drugs and medicaments taken internally; T40.2X5A Adverse effect of other opioids, initial encounter; Y92.230 Patient room in hospital as the place of occurrence of the external cause; I25.10 Atherosclerotic heart disease of native coronary artery without angina pectoris; Z95.1 Presence of aortocoronary bypass graft; Z95.2 Presence of prosthetic heart valve; Z95.0 Presence of cardiac pacemaker; Z87.01 Personal history of pneumonia (recurrent); Z99.81 Dependence on supplemental oxygen; K59.09 Other constipation; Z86.73 Personal history of transient ischemic attack (TIA), and cerebral infarction without residual deficits; M19.90 Unspecified osteoarthritis, unspecified site; Z85.89 Personal history of malignant neoplasm of other organs and systems; E78.5 Hyperlipidemia, unspecified; H35.30 Unspecified macular degeneration; Z87.39 Personal history of other diseases of the musculoskeletal system and connective tissue; D69.6 Thrombocytopenia, unspecified; L89.329 Pressure ulcer of left buttock, unspecified stage; L89.319 Pressure ulcer of right buttock, unspecified stage; L84 Corns and callosities; Z79.82 Long term (current) use of aspirin; Z79.01 Long term (current) use of anticoagulants; N40.1 Benign prostatic hyperplasia with lower urinary tract symptoms
CPT/HCPCS: 36415; 36430; 36600; 70450; 70450-26; 71010; 71010-26; 80048; 80053; 80170; 82550; 82565; 82803; 82962; 83735; 84100; 84484; 85018; 85025; 85027; 85610; 86850; 86900; 86901; 86902; 86920; 86922; 87086; 87088; 87186; 93005; 94640; 94640-76; 94660; 94667; 96365; 96366; 97110-GP; 97162-GP; 97530-GP; 99285; A9270-GY; J0290; J1170; J1200; J1580; J2060; J2185; J2920; J2930; J7030; J7040; J7050; J7620; P9016; S0171